=== PATIENT | female | born 1955 | race Caucasian/White ===

== ENCOUNTER 2021-04-17 15:03 | Emergency (ER) | payer MEDICARE, OTHER, SELFPAY ==
--- NOTE | 2021-04-17 | ECG_ITS ---
Test Reason : ABD PAIN HIGH BLOOD Blood Pressure : / mmHG Vent. Rate : 084 BPM Atrial Rate : 084 BPM P-R Int : 146 ms QRS Dur : 080 ms QT Int : 380 ms P-R-T Axes : 059 049 070 degrees QTc Int : 449 ms Sinus rhythm with occasional Premature ventricular complexes Septal infarct , age undetermined Abnormal ECG No previous ECGs available Referred By: Generic ED Physician Electronically Signed By:Yuval Vega
--- NOTE | ~2021-04-17 | XR_ITS ---
EXAMINATION: XR CHEST CLINICAL INFORMATION: Abdominal distention COMPARISON: Chest radiograph 10/27/2012 TECHNIQUE: Frontal view of the chest was obtained. FINDINGS: No significant abnormality is noted involving the heart, lungs, mediastinum, bony thorax or soft tissues. Again seen are bilateral calcified breast prostheses. Stool is present in nondilated colon beneath the diaphragm. Degenerative changes present throughout the spine with scoliosis not significantly changed when compared to 2012. XR/XR chest 1V IMPRESSION: No acute intrathoracic disease
--- NOTE | ~2021-04-17 | CT_ITS ---
EXAMINATION: CT ABDOMEN AND PELVIS WITH CONTRAST CLINICAL INFORMATION: Pain and distention COMPARISON: None TECHNIQUE: Multidetector volumetric images were obtained from the superior aspect of the liver through the pubic symphysis following administration 85 mL of Omnipaque 350 intravenous contrast. Sagittal and coronal reformatted images were obtained on the technologist's workstation. Oral contrast: No This CT examination was performed using dose optimization techniques as appropriate, variously including the following: *Automated exposure control *Adjustment of mA and/or kV according to patient size (this includes techniques or standardized protocols for targeted exams where dose is matched to indication/reason for exam; i.e. extremities or head) *Use of iterative reconstruction technique DLP: 365 mGy-cm FINDINGS: LUNG BASES: Linear densities at both bases consistent scarring or discoid atelectasis. Density calcified breast tissue partially imaged. LIVER, GALLBLADDER, AND BILIARY TREE: The liver is normal in size, shape, and attenuation. No focal hepatic lesion or biliary ductal dilatation is present. The gallbladder is unremarkable with no evidence of radiopaque gallstones, gallbladder wall thickening, or obvious pericholecystic inflammatory changes. PANCREAS: Massively dilated pancreatic duct. The duct at the level the pancreatic neck measures up to 2 cm. No obstructing source noted. No severe pancreatic parenchymal atrophy or inflammatory changes. No stones. SPLEEN: Unremarkable. ADRENAL GLANDS: Unremarkable. KIDNEYS AND URETERS: The kidneys are normal in size, shape, and attenuation. No hydronephrosis, hydroureter, or calculi seen. No perinephric stranding. BLADDER: Unremarkable. GASTROINTESTINAL TRACT: The small and large bowel are unremarkable. The appendix is unremarkable. ABDOMINAL WALL: No significant hernia is appreciated. LYMPH NODES: Normal. VASCULAR: Unremarkable. PELVIC VISCERA: There is a huge pelvic mass which is heterogeneously enhancing and solid measuring up to 17.6 cm longitudinal 16 cm transverse and 17.3 cm AP. When lesions get this large it is difficult to determine exact organ of origin. Uterus appears retroflexed and appearance favors a adnexal likely ovarian mass although a subserosal limb myeloma or leiomyosarcoma can also appear this way. No previous imaging. No changes of carcinomatosis grossly. OSSEOUS STRUCTURES: Unremarkable. CT/CT abdomen pelvis w con IMPRESSION: 1. Large pelvic mass as above. Carcinoma suspected. SPACE AND MISSILE OPERATIONS assessment indicated. If further imaging is desired, recommend pelvic MRI. 2. Massively dilated main pancreatic duct. In this setting, a main duct IPMN is the primary diagnostic consideration. GI assessment indicated.
[2021-04-17 15:11] VITALS: BP 200/103; PULSE 82; RESP 18; TEMP 36.8; O2SAT 96; BMI 20.1
[2021-04-17 18:16] LABS: MANUAL DIFF FLAG NO
[2021-04-17 18:23] LABS: Prothrombin Time 11.7 SEC (10.8-13.0)
[2021-04-17 18:26] LABS: Partial Thromboplastin Time 40.1 SEC (24.1-38.0)
[2021-04-17 18:36] LABS: Basophils Absolute Auto 0.1 X10*3/uL (0.0-0.2); Eosinophils Absolute Auto 0.2 X10*3/uL (0.0-0.4); Eosinophils Percent Auto 2.4 % (0-4); Hematocrit 42.9 % (37-47); Hemoglobin 14.3 g/dl (12.0-16.0); Imm Gran Abs Auto 0.02 X10*3/uL (0.00-0.03); Imm Gran Pct Auto 0.2 % (0.0-0.4); Lymphocytes Absolute Auto 2.4 X10*3/uL (1.2-4.9); Lymphocytes Percent Auto 25.2 % (20-40); Mean Corpuscular HGB Conc 33.3 g/dl (31.0-35.0); Mean Corpuscular Volume 101.9 fL (80-98); Mean Platelet Volume 10.7 fL (9.4-12.3); Monocytes Absolute Auto 0.6 X10*3/uL (0.1-1.2); Monocytes Percent Auto 6.8 % (2-11); Neutrophils Absolute Auto 6.1 X10*3/uL (2.0-8.3); Neutrophils Percent Auto 64.4 % (45-73); Platelet Count 316 X10*3/uL (160-400); Red Blood Count 4.21 X10*6/uL (4.20-5.50); Red Cell Distribution Width 12.1 % (11.0-16.0); White Blood Count 9.5 X10*3/uL (4.8-10.8)
[2021-04-17] MEDS: Dicyclomine HCl 10 MG CAPSULE 20 MG PO (18:36)
[2021-04-17] MEDS: ondansetron HCL 4 MG/2 ML VIAL IVPUSH (18:36)
[2021-04-17 18:37] LABS: Alanine Aminotransferase 17 U/L (0-31); Albumin Level 4.3 g/dL (3.5-5.0); Alkaline Phosphatase 58 U/L (39-117); Anion Gap 15 (12-20); Aspartate Amino Transferase 14 U/L (5-31); Bilirubin Direct 0.2 mg/dL (0.0-0.5); Bilirubin Total 0.3 mg/dL (0.0-1.0); Blood Urea Nitrogen 17 mg/dL (9-16); Calcium 9.4 mg/dL (8.4-10.2); Carbon Dioxide 28 mmol/L (22-29); Chloride 106 mmol/L (96-108); Creatinine Clr Calc Pharmacy 82.3; Estimated Glomerular Filt Rate > 60; Glucose Random 109 mg/dL (60-115); Lipase 37 U/L (8-78); Potassium 5.1 mmol/L (3.3-5.1); Sodium 144 mmol/L (135-145); Total Protein 6.7 g/dL (6.5-8.0)
[2021-04-17 18:39] LABS: Glucose Urine UA NEG (NEG); Leukocyte Esterase Urine NEG (NEG); Nitrite Urine NEG (NEG); PH 5.5 (5.0-8.0); Specific Gravity - Urine >= 1.030 (1.005-1.025); Urine Blood NEG (NEG); Urine Ketones NEG (NEG); Urine Protein NEG (NEG-TRACE)
[2021-04-17 18:41] LABS: Troponin-I High Sensitivity < 3.5 ng/L (<3.5-17.0)
[2021-04-17 18:43] LABS: Appearance Urine CLEAR; Color Urine YELLOW
--- NOTE | 2021-04-17 18:45 | ED.ABDPAIN ---
HPI - Abdominal Pain General Chief Complaint: Abdominal Pain Stated Complaint: Abdominal pain Source: patient Mode of arrival: ambulatory Limitations: no limitations History of Present Illness HPI narrative: 65-year-old female presents with abdominal pain, nausea, vomiting for the past several months, states that she also feels like something is growing in her abdomen. Her abdomen is distended, states that she has been like this for several years. She also has basal cell carcinoma on her right lateral nostril. She does not report any chest pain or pressure, shortness breath, shortness of breath on exertion, dysuria, hematuria, edema, weakness, lightheadedness, or any other concerning symptoms. MD elicited complaint: abdominal pain Pertinent past history: none Onset (ago): month(s) Pain Consistency: constant Location: suprapubic Severity: severe Quality: aching Exacerbating factors: eating, bowel movement, vomiting and movement Relieving factors: nothing Associated symptoms: nausea and vomiting Related Data Previous Rx's Medication Instructions Recorded amlodipine 5 mg PO DAILY #20 tab 04/17/21 lorazepam [Ativan] 1 mg PO TID PRN #20 tab 04/17/21 oxycodone 5 mg PO Q4H PRN #20 tab 04/17/21 Allergies Allergy/AdvReac Type Severity Reaction Status Date / Time statins Allergy Intermediate elevated Verified 04/17/21 15:11 liver enzymes Review of Systems Review of Systems Constitutional: Positive Weight loss, No Fever, No Chills, No Night Sweats, positive Fatigue, No Malaise ENT/Mouth: No Hearing loss, No Ear Pain, No Nasal Congestion, No Sinus Pain, No Hoarseness, No sore throat, No Rhinorrhea, No Swallowing Difficulty Eyes: No Eye Pain, No Swelling, No Redness, No Foreign Body, No Discharge, No Vision Changes Cardiovascular: No Chest Pain, No SOB, No Dyspnea on Exertion, No Orthopnea, No Edema, No Palpitations Respiratory: No Cough, No Sputum, No Wheezing, No Smoke Exposure, No Dyspnea Gastrointestinal: Positive Nausea, Positive Vomiting, no Diarrhea, positive abdominal Pain, No Hematochezia, No Melena Genitourinary: no irregular bleeding, No Dysuria, No Urinary Frequency, No Hematuria, No Urinary Incontinence, No Urgency, No Flank Pain, No Urinary Flow Changes, No Hesitancy Musculoskeletal: No joint pain, No Myalgias, No Joint Swelling Skin: No Skin Lesions, No rash Neuro: No Weakness, No Numbness, No Paresthesias, No Loss of Consciousness, No Dizziness, No Headache Psych: No Anxiety/Panic, No Depression, No SI/HI/AH/VH, No Social Issues Heme/Lymph: No Bruising, No Bleeding,No Lymphadenopathy Endocrine: No Polyuria, No Polydipsia, No Temperature Intolerance Yes all other systems are reviewed and are negative Physical Exam Vital Signs: Vital Signs: Last Vital Signs Temp 98.3 F 04/17/21 15:11 Pulse 82 04/17/21 15:11 Resp 18 04/17/21 15:11 BP 200/103 H 04/17/21 15:11 Pulse Ox 96 04/17/21 15:11 Body Mass Index 20.1 Appearance: Alert. Oriented X3. Mild distress. Head: Normal external exam. Normocephalic. Atraumatic. No Kat signs noted. No raccoon eyes noted Eyes: PERRLA. EOMI. Conjunctiva and sclera normal. Eyelids normal. ENT: TM's Normal. Pharynx normal. Uvula midline. Moist mucous membranes. No trismus noted. No drooling noted. No muffled voice noted. Neck: Normal inspection. Neck supple. No adenopathy. Thyroid Normal. No meningeal signs. No neck mass noted. CVS: Normal heart rate and rhythm. Heart sound normal. No murmurs noted. Pulses equal to all extremities. Respiratory: No respiratory distress. Painless inspiration. Breath sounds normal. No wheezes/rales/rhonchi noted. Chest nontender. No accessory muscle usage noted or decreased air movement noted. Abdomen: Soft and diffusely tender, palpable mass at the suprapubic lower abdomen, Bowel sounds normal in all 4 quadrants. Positive distention noted. No visible injury noted. Back: No CVA tenderness. Full range of motion noted. Skin: Skin warm and dry. Normal skin color. Normal skin turgor. No rashes/lesions/lacerations noted. Extremities: No lower extremity edema. Extremities exhibit normal range of motion. Extremities nontender. Neuro: cranial nerves 2-12 intact, no focal neural deficits, strength 5/5 to all extremities, No motor deficit. No sensory deficit. Course Course Course Narrative: 65-year-old female presents with several months of abdominal pain, nausea, vomiting, and suspected abdominal mass based on physical exam. Will order CT scan of abdomen pelvis with contrast. She has not seen a physician in several years, does have a spot of basal carcinoma on her right nostril. Lab values are unremarkable, CT scan of the abdomen and pelvis indicates large pelvic mass consistent with either ovarian cancer or leiomyoma, also indicates an enlarged pancreatic duct over 2 cm consistent with IPMN. I did discuss this case with both Dr. Fuchs and Dr. Altamirano, both agree that patient needs to be followed up by Oncology. Patient was referred to [facility] as we do not have the surgical team to appropriately treat this patient's pelvic mass. I did prescribe oxycodone, Ativan, and amlodipine for her blood pressure. Findings discussed in detail with patient, patient does understand the gravity of her situation and will follow-up with oncology. Patient verbalized understanding of and agrees to plan of care discharge home. Consultations Consultation #1: Adarsh Consultation #2: Jef MDM - Abdominal Pain Differential Diagnosis Differential diagnosis: Likely abdominal pain, diverticulitis, pancreatitis and small bowel obstruction Differential diagnosis narrative:: Abdominal mass Medical Records Attestation: I reviewed the patient's medical records. Lab Data Attestation: I reviewed the patient's lab results. Result diagrams: 04/17/21 18:10 04/17/21 18:10 Labs: Lab Results 04/17/21 04/17/21 04/17/21 Range/Units 18:10 18:10 18:10 WBC 9.5 (4.8-10.8) X10*3/uL RBC 4.21 (4.20-5.50) X10*6/uL Hgb 14.3 (12.0-16.0) g/dl Hct 42.9 (37-47) % MCV 101.9 H (80-98) fL MCH 34.0 H (27.0-33.0) pg MCHC 33.3 (31.0-35.0) g/dl RDW 12.1 (11.0-16.0) % Plt Count 316 (160-400) X10*3/uL MPV 10.7 (9.4-12.3) fL Immature Gran % (Auto) 0.2 (0.0-0.4) % Neut % (Auto) 64.4 (45-73) % Lymph % (Auto) 25.2 (20-40) % Sampson % (Auto) 6.8 (2-11) % Eos % (Auto) 2.4 (0-4) % Baso % (Auto) 1.0 (0-2) % Lymph # (Auto) 2.4 (1.2-4.9) X10*3/uL Sampson # (Auto) 0.6 (0.1-1.2) X10*3/uL Eos # (Auto) 0.2 (0.0-0.4) X10*3/uL Baso # (Auto) 0.1 (0.0-0.2) X10*3/uL Abs Immat Gran (auto) 0.02 (0.00-0.03) X10*3/uL Absolute Neuts (auto) 6.1 (2.0-8.3) X10*3/uL Absolute Nucleated RBC 0.000 (0.0-0.012) X10*3/uL Nucleated RBC % (auto) 0.0 (0.0-0.2) /100WBC PT 11.7 (10.8-13.0) SEC INR 1.0 (0.9-1.1) APTT 40.1 H (24.1-38.0) SEC Sodium 144 (135-145) mmol/L Potassium 5.1 (3.3-5.1) mmol/L Chloride 106 (96-108) mmol/L Carbon Dioxide 28 (22-29) mmol/L Anion Gap 15 (12-20) BUN 17 H (9-16) mg/dL Creatinine 0.61 (0.5-1.4) mg/dL Estim Creat Clear Calc 82.3 Estimated GFR > 60 Random Glucose 109 (60-115) mg/dL Calcium 9.4 (8.4-10.2) mg/dL Total Bilirubin 0.3 (0.0-1.0) mg/dL Direct Bilirubin 0.2 (0.0-0.5) mg/dL AST 14 (5-31) U/L ALT 17 (0-31) U/L Alkaline Phosphatase 58 (39-117) U/L Troponin I High Sens (<3.5-17.0) ng/L Total Protein 6.7 (6.5-8.0) g/dL Albumin 4.3 (3.5-5.0) g/dL Lipase 37 (8-78) U/L Urine Color Urine Appearance Urine pH (5.0-8.0) Ur Specific Falls (1.005-1.025) Urine Protein (NEG-TRACE) MG/DL Urine Glucose (UA) (NEG) MG/DL Urine Ketones (NEG) MG/DL Urine Blood (NEG) Urine Nitrite (NEG) Ur Leukocyte Esterase (NEG) 04/17/21 04/17/21 Range/Units 18:10 18:31 WBC (4.8-10.8) X10*3/uL RBC (4.20-5.50) X10*6/uL Hgb (12.0-16.0) g/dl Hct (37-47) % MCV (80-98) fL MCH (27.0-33.0) pg MCHC (31.0-35.0) g/dl RDW (11.0-16.0) % Plt Count (160-400) X10*3/uL MPV (9.4-12.3) fL Immature Gran % (Auto) (0.0-0.4) % Neut % (Auto) (45-73) % Lymph % (Auto) (20-40) % Sampson % (Auto) (2-11) % Eos % (Auto) (0-4) % Baso % (Auto) (0-2) % Lymph # (Auto) (1.2-4.9) X10*3/uL Sampson # (Auto) (0.1-1.2) X10*3/uL Eos # (Auto) (0.0-0.4) X10*3/uL Baso # (Auto) (0.0-0.2) X10*3/uL Abs Immat Gran (auto) (0.00-0.03) X10*3/uL Absolute Neuts (auto) (2.0-8.3) X10*3/uL Absolute Nucleated RBC (0.0-0.012) X10*3/uL Nucleated RBC % (auto) (0.0-0.2) /100WBC PT (10.8-13.0) SEC INR (0.9-1.1) APTT (24.1-38.0) SEC Sodium (135-145) mmol/L Potassium (3.3-5.1) mmol/L Chloride (96-108) mmol/L Carbon Dioxide (22-29) mmol/L Anion Gap (12-20) BUN (9-16) mg/dL Creatinine (0.5-1.4) mg/dL Estim Creat Clear Calc Estimated GFR Random Glucose (60-115) mg/dL Calcium (8.4-10.2) mg/dL Total Bilirubin (0.0-1.0) mg/dL Direct Bilirubin (0.0-0.5) mg/dL AST (5-31) U/L ALT (0-31) U/L Alkaline Phosphatase (39-117) U/L Troponin I High Sens < 3.5 (<3.5-17.0) ng/L Total Protein (6.5-8.0) g/dL Albumin (3.5-5.0) g/dL Lipase (8-78) U/L Urine Color YELLOW Urine Appearance CLEAR Urine pH 5.5 (5.0-8.0) Ur Specific Falls >= 1.030 H (1.005-1.025) Urine Protein NEG (NEG-TRACE) MG/DL Urine Glucose (UA) NEG (NEG) MG/DL Urine Ketones NEG (NEG) MG/DL Urine Blood NEG (NEG) Urine Nitrite NEG (NEG) Ur Leukocyte Esterase NEG (NEG) Imaging Data CT abdomen pelvis: Attestation: I personally reviewed and interpreted this imaging study as follows: Radiologist's impression: FINDINGS: LUNG BASES: Linear densities at both bases consistent scarring or discoid atelectasis. Density calcified breast tissue partially imaged. LIVER, GALLBLADDER, AND BILIARY TREE: The liver is normal in size, shape, and attenuation. No focal hepatic lesion or biliary ductal dilatation is present. The gallbladder is unremarkable with no evidence of radiopaque gallstones, gallbladder wall thickening, or obvious pericholecystic inflammatory changes. PANCREAS: Massively dilated pancreatic duct. The duct at the level the pancreatic neck measures up to 2 cm. No obstructing source noted. No severe pancreatic parenchymal atrophy or inflammatory changes. No stones. SPLEEN: Unremarkable. ADRENAL GLANDS: Unremarkable. KIDNEYS AND URETERS: The kidneys are normal in size, shape, and attenuation. No hydronephrosis, hydroureter, or calculi seen. No perinephric stranding. BLADDER: Unremarkable. GASTROINTESTINAL TRACT: The small and large bowel are unremarkable. The appendix is unremarkable. ABDOMINAL WALL: No significant hernia is appreciated. LYMPH NODES: Normal. VASCULAR: Unremarkable. PELVIC VISCERA: There is a huge pelvic mass which is heterogeneously enhancing and solid measuring up to 17.6 cm longitudinal 16 cm transverse and 17.3 cm AP. When lesions get this large it is difficult to determine exact organ of origin. Uterus appears retroflexed and appearance favors a adnexal likely ovarian mass although a subserosal limb myeloma or leiomyosarcoma can also appear this way. No previous imaging. No changes of carcinomatosis grossly. OSSEOUS STRUCTURES: Unremarkable. CT/CT abdomen pelvis w con IMPRESSION: 1. Large pelvic mass as above. Carcinoma suspected. 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 If further imaging is desired, recommend pelvic MRI. 2. Massively dilated main pancreatic duct. In this setting, a main duct IPMN is the primary diagnostic consideration. GI assessment indicated. Chest x-ray: Attestation: I personally reviewed and interpreted this imaging study as follows: Radiologist's impression: EXAMINATION: XR CHEST CLINICAL INFORMATION: Abdominal distention COMPARISON: Chest radiograph 10/27/2012 TECHNIQUE: Frontal view of the chest was obtained. FINDINGS: No significant abnormality is noted involving the heart, lungs, mediastinum, bony thorax or soft tissues. Again seen are bilateral calcified breast prostheses. Stool is present in nondilated colon beneath the diaphragm. Degenerative changes present throughout the spine with scoliosis not significantly changed when compared to 2013. XR/XR chest 1V IMPRESSION: No acute intrathoracic diseas ECG Data Attestation: I personally reviewed and interpreted this ECG as follows: ECG interpretation date: 04/17/21 ECG interpretation time: 15:35 Interpretation: Vent. rate 84 BPM ID interval 146 ms QRS duration 80 ms QT/QTc 380/449 ms P-R-T axes 59 49 70 Sinus rhythm with occasional Premature ventricular complexes Septal infarct , age undetermined Abnormal ECG No previous ECGs available Discharge Plan Discharge Clinical Impression: Pelvic mass, Dilated pancreatic duct Patient Disposition: Home, Self-Care Instructions: Ovarian Cancer (DC) Additional Instructions: You were evaluated for abdominal pain. CT scan shows a large pelvic mass consistent with ovarian cancer. CT scan also indicates abnormality with the pancreatic duct, consistent with possible metastatic cancer. Please follow-up with [facility]. I have prescribed oxycodone which is a narcotic. This medication has high risk for addiction and abuse. Do not drive or operate machinery while taking medication. This medication is constipating, please use MiraLax and her Colace to help soften stools. I prescribed Ativan for anxiety. Please take this medication as directed. This medication is a benzo diazepam. I prescribed amlodipine for elevated blood pressure. Please take this medication daily. Please call [facility] at . Thank you for choosing this emergency department for evaluation. Please follow-up with primary care physician as needed. Return to the emergency department for any new, concerning, or worsening symptoms. Prescriptions: New oxycodone 5 mg tablet 5 mg PO Q4H PRN (Reason: pain) Qty: 20 RF: 0 lorazepam [Ativan] 1 mg tablet 1 mg PO TID PRN (Reason: anxiety) Qty: 20 RF: 0 amlodipine 5 mg tablet 5 mg PO DAILY Qty: 20 RF: 0 Referrals: Prashant Altamirano [Physician] - 2 days (Enlarged pancreatic duct) Duarte Fuchs MD [Physician] - 2 days (Pelvic mass) Discharge Date/Time: 04/17/21 20:42 [facility] Past Medical History Attestation statement: The following information was validated with the patient. Source: old records reviewed Medical History Cervical disc herniation Depression Social History Social History Advance Directives: Yes Advance Directives Information Provided: Yes Advance Directives on File: No
[2021-04-17] MEDS: oxyCODONE HCl Immed Release 5 MG TABLET PO (20:37)
[2021-04-17] MEDS: LORazepam 1 MG TABLET PO (20:37)
[2021-04-17 20:40] VITALS: BP 171/82; PULSE 67; RESP 16; TEMP 36.9; O2SAT 97
== END 2021-04-17 20:42 | disposition home or self-care (01) ==
PROVIDERS: Nurse Practitioner Family; Emergency Provider Internal Medicine
DX: R19.09 Other intra-abdominal and pelvic swelling, mass and lump (principal); K86.89 Other specified diseases of pancreas
CPT/HCPCS: 36415; 71045; 74177; 80048; 80076; 81003; 83690; 84484; 85025; 85610; 85730; 93005; 96374; 99284; J2405

== ENCOUNTER 2021-06-10 12:57 | Emergency (ER) | payer MEDICARE, SELFPAY ==
--- NOTE | ~2021-06-10 | XR_ITS ---
EXAMINATION: XR ELBOW, LEFT CLINICAL INFORMATION: Rule out foreign body COMPARISON: None TECHNIQUE: AP, lateral, and oblique views of the left elbow. FINDINGS: Very small density involving soft tissue of the proximal forearm lung radial aspect. This may be dystrophic calcification or possibly phlebolith versus rounded foreign body. Measures 2 mm. There is no fracture or dislocation of the elbow. There is some evidence of degenerative change. XR/XR elbow LT 2V IMPRESSION: Small foreign body within the soft tissue proximal forearm along the radial aspect as described. This could be dystrophic calcification or phlebolith versus a small foreign body.
--- NOTE | ~2021-06-10 | US_ITS ---
EXAMINATION: US VENOUS WITH DOPPLER UPPER EXTREMITY, LEFT CLINICAL INFORMATION: Left upper extremity pain post IV contrast COMPARISON: None TECHNIQUE: Ultrasound of the upper extremity is performed using compression sonography and color and pulse Doppler flow with assessment of augmentation of flow. There is also imaging and Doppler assessment of the jugular and subclavian veins. Spectral analysis with color-flow imaging is performed. FINDINGS: Thrombus is present in the superficial basilic vein at the level of the elbow corresponding to the palpable cord on physical exam. No DVT is present. Respiratory variation, normal compression, and augmented flow are noted throughout the deep venous system of the upper extremity including the axillary, brachial, cubital, and radial and ulnar veins. There is normal flow in the internal jugular and subclavian veins. If the patient's symptoms progress, a followup ultrasound in 5 -7 days might be of value to exclude proximal propagation from a nonvisualized distal arm vein. US/US venous duplex UE LT IMPRESSION: No DVT demonstrated in the left upper extremity deep venous system. Superficial thrombophlebitis noted in the left basilic vein at the elbow
[2021-06-10 13:39] VITALS: BP 155/74; PULSE 80; RESP 18; TEMP 36.7; O2SAT 97; BMI 17.5
--- NOTE | 2021-06-10 19:24 | ED.GENADULT ---
HPI - General Adult General Chief complaint: General Medical Stated complaint: arm swelling Time Seen by Provider: 06/10/21 15:48 History of Present Illness HPI narrative: Patient complains of swollen vein in left antecubital where she had an IV last week and is concerned about the pain and the swelling, the IV was placed when she was hospitalized for a surgery and she is concerned a piece of the IV may have broken off and be stuck under her skin or in her vein, no fever no chills no joint pains no difficulty breathing no chest pain Related Data Previous Rx's Medication Instructions Recorded amlodipine 5 mg tablet 5 mg PO DAILY #20 tab 04/17/21 lorazepam 1 mg tablet (Ativan) 1 mg PO TID PRN #20 tab 04/17/21 oxycodone 5 mg tablet 5 mg PO Q4H PRN #20 tab 04/17/21 Allergies Allergy/AdvReac Type Severity Reaction Status Date / Time statins Allergy Intermediate elevated Verified 06/10/21 13:39 liver enzymes Review of Systems Review of Systems: Positive for left antecubital vein swelling and tenderness Negatives are no fever no chills no dizziness no weakness no headache no neck pain no chest pain or shortness of breath no palpitations no leg swelling no joint pains Yes all other systems are reviewed and are negative PMFSH Past Medical History Source: nursing notes reviewed Medical History (Updated 06/11/21 @ 00:03 by Ramón Ray) Cervical disc herniation Depression H/O pelvic mass Pelvic mass in female Surgical History (Updated 06/10/21 @ 13:41 by Trice Koenig RN) History of hysterectomy Social History Social History Advance Directives: No Advance Directives Information Provided: Yes Physical Exam Vital Signs: Vital Signs: Last Vital Signs Temp 98.1 F 06/10/21 13:39 Pulse 80 06/10/21 13:39 Resp 18 06/10/21 13:39 BP 155/74 H 06/10/21 13:39 Pulse Ox 97 06/10/21 13:39 Body Mass Index 17.5 General appearance is no acute distress Head is normocephalic atraumatic Neck is supple Respiratory no distress Extremities the left antecubital area has a swollen vein that is palpable for 2 or 3 cm, it is not red or warm but is tender, there is full range of motion in the elbow, the skin is intact there is no wound there is no other swelling in the upper arm or anywhere else in the arm, full range of motion shoulder elbow wrist and hand, neurovascular intact, no redness or warmth no rash Other extremities normal Course Course Course Narrative: Ultrasound of the upper extremity to rule out DVT was negative for DVT, it did show some superficial clot, there was no foreign body visualized in the vein or in the soft tissue near the vein X-ray did show a possible foreign body in the area but it was unclear if was in soft tissue or in the vein so ultrasound was done and no foreign body was visualized in the vein Well-appearing patient without any evidence of active infection is discharged with symptomatic treatment for superficial thrombophlebitis Discharge Plan Discharge Clinical Impression: Superficial phlebitis of arm Patient Disposition: Home, Self-Care Additional Instructions: There is no sign of infection in the left upper arm The ultrasound did not visualize a foreign body in the vein The ultrasound did not see any deep vein thrombosis It is not currently recommended to treat this with blood thinners, but in some cases a specialist might make a different decision so 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
== END 2021-06-10 19:38 | disposition home or self-care (01) ==
PROVIDERS: Emergency Provider Emergency Medicine
DX: I80.9 Phlebitis and thrombophlebitis of unspecified site (principal); M79.602 Pain in left arm; Z79.899 Other long term (current) drug therapy; R60.0 Localized edema
CPT/HCPCS: 73070; 93971; 99283; 99284

== ENCOUNTER 2022-02-04 08:06 | Outpatient (REF) | payer MEDICARE, SELFPAY ==
[2022-02-04 08:33] LABS: MANUAL DIFF FLAG NO
[2022-02-04 08:53] LABS: Basophils Absolute Auto 0.1 X10*3/uL (0.0-0.2); Basophils Percent Auto 0.9 % (0-2); Eosinophils Absolute Auto 0.2 X10*3/uL (0.0-0.4); Eosinophils Percent Auto 3.3 % (0-4); Hemoglobin 15.1 g/dl (12.0-16.0); Imm Gran Abs Auto 0.01 X10*3/uL (0.00-0.03); Imm Gran Pct Auto 0.1 % (0.0-0.4); Lymphocytes Absolute Auto 1.7 X10*3/uL (1.2-4.9); Lymphocytes Percent Auto 25.6 % (20-40); Mean Corpuscular HGB Conc 32.8 g/dl (31.0-35.0); Mean Corpuscular Hemoglobin 33.6 pg (27.0-33.0); Mean Corpuscular Volume 102.2 fL (80.0-98.0); Mean Platelet Volume 11.3 fL (9.4-12.3); Monocytes Absolute Auto 0.5 X10*3/uL (0.1-1.2); Neutrophils Absolute Auto 4.3 x10*3/uL (2.0-8.3); Neutrophils Percent Auto 63.1 % (45-73); Platelet Count 249 X10*3/uL (160-400); Red Cell Distribution Width 12.5 % (11.0-16.0); White Blood Count 6.7 X10*3/uL (4.8-10.8)
[2022-02-04 09:01] LABS: Estimated Average Glucose 100 mg/dL; Hemoglobin A1c % 5.1 %
[2022-02-04 09:17] LABS: Alanine Aminotransferase 19 U/L (0-31); Albumin Level 4.4 g/dL (3.5-5.0); Alkaline Phosphatase 48 U/L (39-117); Anion Gap 16 (12-20); Aspartate Amino Transferase 15 U/L (5-31); Bilirubin Total 0.5 mg/dL (0.0-1.0); Blood Urea Nitrogen 20 mg/dL (9-16); Calcium 9.7 mg/dL (8.4-10.2); Carbon Dioxide 23 mmol/L (22-29); Chloride 106 mmol/L (96-108); Cholesterol 171 mg/dL; Estimated Glomerular Filt Rate > 60; Glucose Fasting 104 mg/dL (60-99); HDL Cholesterol 60 mg/dL; LDL Cholesterol Calculated 95 mg/dl; Sodium 140 mmol/L (135-145); Total Protein 6.7 g/dL (6.5-8.0); Triglycerides 81 mg/dL
[2022-02-04 09:38] LABS: TSH reflex Free T4 0.59 uIU/mL (0.32-4.0)
[2022-02-04 09:56] LABS: Folate > 20.0 ng/mL (> or = 4.0); Vitamin B12 1358 pg/mL (200-900)
[2022-02-06 06:26] LABS: CA 125 New Method 4 U/mL (<35); CA-125 4 U/mL (<35)
[2022-02-08 10:12] LABS: Carbohydrate Antigen 19-9 <3 U/mL (<34)
[2022-02-09 13:46] LABS: Vitamin D 25-OH, D2 <4 ng/mL; Vitamin D 25-OH, D3 44 ng/mL; Vitamin D 25-OH, Total 44 ng/mL (30-100)
== END 2022-02-04 08:07 | disposition home or self-care (01) ==
LOC: HO.LAB 08:06
PROVIDERS: PCP Nurse Practitioner Acute Care; Visit Provider Nurse Practitioner Acute Care
DX: C25.9 Malignant neoplasm of pancreas, unspecified (principal); R53.83 Other fatigue
CPT/HCPCS: 36415; 80053; 80061; 82306; 82378; 82607; 82746; 83036; 84443; 85025; 86301; 86304

== ENCOUNTER 2022-08-03 09:48 | Outpatient (REF) | payer MEDICARE, OTHER, SELFPAY ==
--- NOTE | ~2022-08-03 | CT_ITS ---
EXAMINATION: CT HEAD WITHOUT CONTRAST CLINICAL INFORMATION: Nontraumatic subdural hemorrhage COMPARISON: None TECHNIQUE: Contiguous axial imaging was performed from the skull base to vertex without intravenous administration of contrast. This CT examination was performed using dose optimization techniques as appropriate, variously including the following: *Automated exposure control *Adjustment of mA and/or kV according to patient size (this includes techniques or standardized protocols for targeted exams where dose is matched to indication/reason for exam; i.e. extremities or head) *Use of iterative reconstruction technique DLP: 820 mGy-cm FINDINGS: There is no evidence of an extra-axial collection. There is no evidence of intra-axial or extra-axial hemorrhage. The ventricles and extra-axial CSF spaces are appropriate. Johansen-white matter differentiation is normal. No mass, mass effect or infarct is seen. There are inflammatory changes in the left maxillary sinus. Visualized paranasal sinuses, mastoid air cells and middle ears are otherwise clear. Degenerative changes at the right temporomandibular joint. No skull fracture. CT/CT head/brain wo IV con IMPRESSION: No evidence of subdural hemorrhage.
== END 2022-08-03 09:49 | disposition home or self-care (01) ==
LOC: HO.CT 09:48
PROVIDERS: PCP Internal Medicine; Visit Provider Psychiatry & Neurology Neurology
DX: S09.90XA Unspecified injury of head, initial encounter (principal); I62.00 Nontraumatic subdural hemorrhage, unspecified
CPT/HCPCS: 70450

== ENCOUNTER 2022-08-06 11:51 | Outpatient (REF) | payer MEDICARE, OTHER, SELFPAY ==
--- NOTE | ~2022-08-06 | MR_ITS ---
EXAMINATION: MR CERVICAL SPINE WITHOUT CONTRAST CLINICAL INFORMATION: 66-year-old with self-reported neck and bilateral shoulder pain and headaches. Cervical disc displacement. COMPARISON: 11/14/2012 MRI TECHNIQUE: MRI of the cervical spine was obtained using routine sequences without contrast. FINDINGS: Alignment: There is 2 mm of anterolisthesis at C3-C4 since the previous exam. There is 2 mm of retrolisthesis at C4-C5, stable in appearance. Otherwise normal alignment unchanged in appearance. Craniocervical Junction/C1-C2 Articulations: Intact and aligned. Visualized Intracranial Structures: Within normal limits. Vertebral Bodies: Normal height. Disc Spaces and Endplates: Severe disc space height loss at C4-C5 with Schmorl's nodes, disc desiccation and spondylosis similar to the previous exam. Mild disc space height loss at C3-C4, stable in appearance. Sjykxigg-ik-fpwhrb disc space height loss at C5-C6 and C6-C7 with disc desiccation, tiny Schmorl's nodes and mild degrees of spondylosis, stable in appearance. Bone Marrow: Minor type I degenerative marrow signal changes seen along the endplates at C4-C5, C5-C6 and C6-C7 with associated type II degenerative marrow signal changes. Type II marrow signal change seen most prominently at C4-C5, stable in appearance. No suspicious marrow replacing process or other bone marrow edema. C2-C3: Mild posterior disc osteophyte complex asymmetric to the right, stable in appearance with slight flattening of the dural sac on the right, unchanged, without cord impingement or canal stenosis. There is uncovertebral and facet arthrosis bilaterally, with progression of facet arthrosis on the left. There is moderate right and mild left-sided neural foraminal stenosis, progressed on the left and stable on the right. C3-C4: Broad-based central disc protrusion similar to previous study with mild flattening of the central dural sac with trace anterolisthesis at this level on the current exam without cord impingement or canal stenosis. There is uncovertebral spurring, left more than right, with mild right and severe left-sided facet arthrosis, progressed on the left. There is ckduieey-ya-xplrbm left-sided and mild right-sided neural foraminal stenosis, largely unchanged. C4-C5: Mild retrolisthesis, with broad-based posterior disc osteophyte complex and a superimposed central disc herniation similar to the previous exam, with ebbw-dh-uglxmdbw ventral cord impingement centrally with AP cord caliber of 5 mm, stable in appearance. There is associated moderate central spinal canal stenosis, stable in appearance. There is uncovertebral spurring and facet arthrosis bilaterally similar to the previous exam, with mnhffrdi-ru-astxwf left-sided and jlql-gu-qfniyjqt right-sided neural foraminal stenosis, stable in appearance. C5-C6: Broad-based disc osteophyte complex noted asymmetric to the right, similar to the previous exam, with effacement of the dural sac on the right without cord compression, stable in appearance. Mild central canal stenosis is stable. Bilateral uncovertebral spurring and facet arthropathy is similar to the previous exam with dulwsgql-ns-lqunwx bilateral neural foraminal stenosis, stable in appearance. There is probable encroachment on the ventral root of C6 on the right, unchanged. C6-C7: Broad-based disc osteophyte complex with mild flattening of the ventral dural sac, stable in appearance, without cord impingement or canal stenosis. Bilateral uncovertebral spurring is again noted with mild right and moderate left-sided neural foraminal stenosis, stable in appearance. C7-T1: Small central to right paramedian disc osteophyte complex, stable in appearance, without significant facet arthrosis, canal or neuroforaminal stenosis. T1-T2: No disc herniation or canal stenosis. No significant DJD or neuroforaminal stenosis. Small perineural cysts noted bilaterally, stable in appearance. Spinal Cord: The cervical and visualized upper thoracic spinal cord is normal in signal intensity throughout, without focal lesion, edema or syrinx. Probable chronic spinal cord volume loss at C4-C5, unchanged. Extracranial Soft Tissues: 1.8 cm left thyroid lobe nodule is noted. Recommend follow-up thyroid ultrasound otherwise the visualized extraspinal soft tissues are grossly unremarkable in appearance. MR/MR cervical spine wo con IMPRESSION: 1. Mild anterolisthesis at C3-C4 since the previous exam and mild retrolisthesis at C4-C5 stable in appearance. 2. Multilevel DDD and spondylosis largely stable in appearance with multilevel disc osteophyte complexes and disc herniations as described above largely similar in appearance to the previous exam with moderate central spinal canal stenosis at C4-C5 and mild central canal stenosis at C5-C6 stable in appearance. Lewa-vd-crfhexsn ventral cord impingement at C4-C5 is stable with probable chronic spinal cord volume loss at this level unchanged. 3. Multilevel DJD as described above with progression of facet arthrosis on the left at C3-C4. Multilevel bilateral neural foraminal stenosis is largely stable in appearance as detailed by level above. 4. 1.8 cm left thyroid lobe nodule. Recommend follow-up thyroid ultrasound.
== END 2022-08-06 11:52 | disposition home or self-care (01) ==
LOC: HO.MRI 11:51
PROVIDERS: PCP Internal Medicine; Visit Provider Psychiatry & Neurology Neurology
DX: M50.20 Other cervical disc displacement, unspecified cervical region (principal)
CPT/HCPCS: 72141

== ENCOUNTER 2022-10-06 14:12 | Outpatient (REF) | payer MEDICARE, OTHER, SELFPAY ==
--- NOTE | ~2022-10-06 | US_ITS ---
EXAMINATION: US THYROID CLINICAL INFORMATION: Thyroid nodule. COMPARISON: None TECHNIQUE: Linear transducer grayscale and color Doppler examination with attention to the region of the thyroid. FINDINGS: SIZE: Measurements of the thyroid lobes and nodules are given in sagittal, anteroposterior and transverse dimensions respectively. Right Thyroid Lobe: 5.6 x 1.6 x 1.4 cm, volume 6.5 mL. Parenchyma: The gland echotexture is homogeneous. Thyroid vascularity is increased. Left Thyroid Lobe: 5.2 x 1.7 x 2.1 cm, volume 9.5 mL. Parenchyma: The gland echotexture is heterogeneous. Thyroid vascularity is increased. Isthmus: 0.2 cm in maximum AP dimension. Estimated total number of nodules greater than or equal to 1 cm: 3. Batch Room Technician nodules are described as follows: 1. Location: Right superior. Size: 1.9 x 0.8 x 1.3 cm, volume 1.0 mL. Nodule characteristics: Composition: Solid (2). Echogenicity: Isoechoic (1). Shape: Not taller than wide (0). Margins: Smooth (0). Echogenic Foci: Comet-tail artifacts (0). ACR TI-RADS total points: 3 ACR TI-RADS category: 3 2. Location: Right medial/mid. Size: 0.5 x 0.4 x 0.7 cm, volume 0.1 mL. Nodule characteristics: Composition: Solid (2). Echogenicity: Hypoechoic (2). Shape: Not taller than wide (0). Margins: Smooth (0). Echogenic Foci: Peripheral calcifications (2). ACR TI-RADS total points: 6 ACR TI-RADS category: 4 3. Location: Right inferior. Size: 0.8 x 0.5 x 0.6 cm, volume 0.1 mL. Nodule characteristics: Composition: Solid (2). Echogenicity: Isoechoic (1). Shape: Not taller than wide (0). Margins: Smooth (0). Echogenic Foci: Comet-tail artifacts (0). ACR TI-RADS total points: 3 ACR TI-RADS category: 3 4. Location: Left superior/mid. Size: 2.3 x 1.5 x 2.0 cm, volume 3.5 mL. Nodule characteristics: Composition: Solid/almost completely solid (2). Echogenicity: Isoechoic (1). Shape: Not taller than wide (0). Margins: Smooth (0). Echogenic Foci: None (0). ACR TI-RADS total points: 3 ACR TI-RADS category: 3 5. Location: Left inferior. Size: 2.4 x 1.2 x 1.2 cm, volume 1.8 mL. Nodule characteristics: Composition: Solid/almost completely solid (2). Echogenicity: Isoechoic (1). Shape: Not taller than wide (0). Margins: Ill-defined (0). Echogenic Foci: Punctate echogenic foci (3). ACR TI-RADS total points: 6 ACR TI-RADS category: 4 NODES: No lymphadenopathy is seen in the tissue surrounding the thyroid gland. US/US thyroid IMPRESSION: Bilateral thyroid nodules. Fine needle aspiration of the nodule in the inferior left lobe and continued ultrasound follow-up recommended. ACR TI-RADS RECOMMENDATION REFERENCE: Ultrasound-guided fine-needle aspiration, followup ultrasound, no further follow up. * TR1 (0 point) and TR 2 (2 points): No FNA or follow up. * TR3 (3 points): FNA if more than or equal to 2.5 cm in maximum dimension, followup ultrasound in 1, 3 and 5 years if 1.5 to 2.4 cm in maximum dimension. * TR4 (4-6 points): FNA if more than or equal to 1.5 cm in maximum dimension, followup ultrasound in 1, 2, 3 and 5 years if 1 to 1.4 cm in maximum dimension. * TR5 (more than or equal to 7 points): FNA if more than or equal to 1 cm in maximum dimension, followup ultrasound every year for 5 years if 0.5 to 0.9 cm in maximum dimension. * TR3, TR4 or TR5 nodules that are below the size threshold for followup receive no follow up.
== END 2022-10-06 14:13 | disposition home or self-care (01) ==
LOC: HO.US 14:12
PROVIDERS: Visit Provider Psychiatry & Neurology Neurology
DX: E04.1 Nontoxic single thyroid nodule (principal)
CPT/HCPCS: 76536

== ENCOUNTER 2023-08-25 08:35 | Outpatient (AMB) | payer MEDICARE, OTHER, SELFPAY ==
--- NOTE | 2023-08-25 08:38 | MHC.PC.OV ---
Vital Signs 08/25/23 08:40 Height 5 ft 5 in Intake Visit Reasons: Med review Intake Note: Patient is here to follow up on med review. Couples Therapist Required: No Commanding Officer Garage: Not Required per policy Accompanied by: Self / Same As Patient Allergies Pzeocti-QTF-QlS Reductase Inhibitor Allergy (Intermediate, Verified 08/25/23 08:40) elevated liver enzymes Tobacco use date assessed: 08/25/23 Fall risk assessment: No Falls in past year Last assessed Fall Risk: 08/25/23 Dental Screening Dental Screen Date: 08/25/23 Did you have a dental visit in the last 12 months?: Yes Did you have a dental problem in the last 6 months where you did not have access to dental care?: No Was dental information given to patient?: Patient has dentist [facility] Medical History (Updated 06/16/22 @ 10:00 by Lucas Felton MD) Benzodiazepine dependence Pelvic mass in female H/O pelvic mass Depression Cervical disc herniation Surgical History History of surgery History of pelvic surgery History of hysterectomy Social History Housing: House Alcohol intake: current Alcohol intake frequency: former alcohol drinker Patient Tobacco Use Status: Former Tobacco user Cigarette Packs Per Day: 1 e-Cigarette/Vaping Use: Never Used Second Hand Smoke Exposure: Yes service: No Current occupational status: retired Cognitive needs: No Hearing needs: No Vision needs: Yes Questionnaire PHQ-9 Over the last 2 weeks, how often have you been bothered by any of the following problems? 1. Little interest or pleasure in doing things: not at all 2. Feeling down, depressed, or hopeless: not at all 3. Trouble falling or staying asleep, or sleeping too much: not at all 4. Feeling tired or having little energy: not at all 5. Poor appetite or overeating: not at all 6. Feeling bad about yourself - or that you are a failure or have let yourself or your family down: not at all 7. Trouble concentrating on things, such as reading the newspaper or watching television: not at all 8. Moving or speaking so slowly that other people could have noticed. Or the opposite - being so fidgety or restless that you have been moving around a lot more than usual: not at all 9. Thoughts that you would be better off or of hurting yourself in some way: not at all Total score: 0 Depression Screening Interpretation: Negative Depression Screening Done: Yes Source: Developed by Drs. Anmol Nuno, Katie Baez, Jose Garay and colleagues, with an educational susana from [email or web address]. Thrive Questionnaire Date Thrive assessed: 08/25/23 I am a: Patient What is your living situation today?: I have a steady place to live Within the past 12 months, did the food you bought not last and you didn't have the money to get more?: Never true Within the past 12 months, did you worry whether your food would run out before you got money to buy more?: Never true Do you have trouble paying for medicines?: No Do you have trouble getting transportation to medical appointments?: No Do you have trouble paying your heating and electricity bill?: No Do you have trouble taking care of your child, family member or friend?: No Do you have trouble with day-to-day activities such as bathing, preparing meals, shopping, managing finances, etc.?: No Are you currently unemployed and looking for a job?: No Are you interested in more education?: No Currently or been in a relationship where the following occur: no concerns reported AUDIT C Alcohol Use Questionnaire (AUDIT-C) 1. How often do you have a drink containing alcohol?: Never Total Score: 0 JAMEEL-7 AMB Questionnaire JAMEEL-7 Date JAMEEL - 7 assessed: 08/25/23 Feeling nervous, anxious, or on edge: 0 = Not at all Not being able to stop or control worryin = Not at all Worrying too much about different things: 0 = Not at all Trouble relaxin = Not at all Being so restless that it is hard to sit still: 0 = Not at all Becoming easily annoyed or irritable: 0 = Not at all Feeling afraid as if something awful might happen: 0 = Not at all Total JAMEEL-7 score (0-4 normal; 5-9 mild; 10-14 moderate; 15-21 severe): 0 Source: Developed by Katie Lange Kurt Kroenke and colleagues, with an educational susana from [email or web address]. Physical exam (Primary Care) Tobacco/Smoking Status: Tobacco use Status Tobacco use date assessed 02/03/22 06/16/22 09:35 Patient Tobacco Use Status Former Tobacco user 06/16/22 09:35 e-Cigarette/Vaping Use Never Used 06/16/22 09:35 Depression Screening Interpretation: Negative Thrive Assessment: Date of Thrive Assessment Date Thrive assessed 02/03/22 06/16/22 09:35 Currently or been in a relationship where the following occur: no concerns reported Coding
[2023-08-25 08:40] VITALS: BP 148/78; PULSE 107; O2SAT 98; BMI 19.7
--- NOTE | 2023-08-25 08:49 | A.OFFPC_ITS ---
Vital Signs 08/25/23 08:40 08/25/23 08:57 Height 5 ft 5 in Weight 118 lb 2 oz BMI 19.7 BP 148/78 H 140/72 H Blood Pressure Location Lt brachial Lt brachial Position Sitting Sitting Pulse 107 H Pulse Source Pulse Oximeter Pulse Oximetry (%) 98 Oxygen Delivery Method Room Air Intake Visit Reasons: Med review Intake Note: Patient is here to follow up on med review. Requesting for lab order Dry Chain Worker Required: No Leather Toggler: Not Required per policy Accompanied by: Self / Same As Patient Allergies Jgoandk-JDQ-CpF Reductase Inhibitor Allergy (Intermediate, Verified 08/28/23 12:02) elevated liver enzymes Medication List - Last Reconciled 08/28/23 by Lucas Felton MD lorazepam 1 mg PO DAILY PRN trazodone 50 mg PO BEDTIME PRN Tobacco use date assessed: 08/25/23 Fall risk assessment: No Falls in past year Last assessed Fall Risk: 08/25/23 Dental Screening Dental Screen Date: 08/25/23 Did you have a dental visit in the last 12 months?: No Did you have a dental problem in the last 6 months where you did not have access to dental care?: No Was dental information given to patient?: Patient has dentist HPI Med review HPI Details 68-year-old female presents to the offic e to discuss her chronic medical conditions. Patient has been diagnosed with basal cell carcinoma on the nose. Surgery has been offered with a replacement cartilage from the ear to fill in. Patient has declined the procedure. Patient has multiple nodules in the thyroid and is scheduled for an appointment with the marketing segment manager in September. She has agreed to get blood work done. She has not had blood work done in the past. Patient has declined mammogram and colonoscopy. She is not interested in the Cologuard either. Patient is requesting a prescription of trazodone. [facility] Medical History Benzodiazepine dependence Pelvic mass in female H/O pelvic mass Depression Cervical disc herniation Surgical History History of surgery History of pelvic surgery History of hysterectomy Social History Housing: House Alcohol intake: current Alcohol intake frequency: holidays/special occasions only Patient Tobacco Use Status: Current everyday Tobacco user Cigarette Packs Per Day: 1 Cigarettes Per Day: 20 e-Cigarette/Vaping Use: Never Used Second Hand Smoke Exposure: Yes service: No Current occupational status: retired Cognitive needs: No Hearing needs: No Vision needs: Yes Questionnaire PHQ-9 Over the last 2 weeks, how often have you been bothered by any of the following problems? 1. Little interest or pleasure in doing things: nearly every day 2. Feeling down, depressed, or hopeless: nearly every day 3. Trouble falling or staying asleep, or sleeping too much: nearly every day 4. Feeling tired or having little energy: nearly every day 5. Poor appetite or overeating: nearly every day 6. Feeling bad about yourself - or that you are a failure or have let yourself or your family down: not at all 7. Trouble concentrating on things, such as reading the newspaper or watching television: nearly every day 8. Moving or speaking so slowly that other people could have noticed. Or the opposite - being so fidgety or restless that you have been moving around a lot more than usual: not at all 9. Thoughts that you would be better off or of hurting yourself in some way: not at all Total score: 18 Source: Developed by Drs. Anmol Nuno, Katie Baez, Jose Garay and colleagues, with an educational susana from [employer]. Thrive Questionnaire Date Thrive assessed: 08/25/23 I am a: Patient What is your living situation today?: I have a steady place to live Within the past 12 months, did the food you bought not last and you didn't have the money to get more?: Never true Within the past 12 months, did you worry whether your food would run out before you got money to buy more?: Never true Do you have trouble paying for medicines?: No Do you have trouble getting transportation to medical appointments?: No Do you have trouble paying your heating and electricity bill?: No Do you have trouble taking care of your child, family member or friend?: No Do you have trouble with day-to-day activities such as bathing, preparing meals, shopping, managing finances, etc.?: Yes Are you currently unemployed and looking for a job?: No Are you interested in more education?: No Currently or been in a relationship where the following occur: no concerns reported AUDIT C Alcohol Use Questionnaire (AUDIT-C) 1. How often do you have a drink containing alcohol?: Monthly or less Total Score: 1 JAMEEL-7 AMB Questionnaire JAMEEL-7 Date JAMEEL - 7 assessed: 08/25/23 Feeling nervous, anxious, or on edge: 3 = Nearly every day Not being able to stop or control worryin = Not at all Worrying too much about different things: 0 = Not at all Trouble relaxin = Not at all Being so restless that it is hard to sit still: 0 = Not at all Becoming easily annoyed or irritable: 3 = Nearly every day Feeling afraid as if something awful might happen: 0 = Not at all Total JAMEEL-7 score (0-4 normal; 5-9 mild; 10-14 moderate; 15-21 severe): 6 Source: Developed by Drs. Anmol Nuno, Katie Baez, oJse Garay and colleagues, with an educational susana from [employer]. Physical exam (Primary Care) Vital Signs: Last Vital Signs Pulse 107 H 08/25/23 08:40 BP 140/72 H 08/25/23 08:57 Pulse Ox 98 08/25/23 08:40 Oxygen Delivery Method Room Air 08/25/23 08:40 BMI result Body Mass Index 19.7 Tobacco/Smoking Status: Tobacco use Status Tobacco use date assessed 08/25/23 08/25/23 08:58 Patient Tobacco Use Status Current everyday Tobacco 08/25/23 08:58 e-Cigarette/Vaping Use Never Used 08/25/23 08:58 PHQ-9: PHQ-9 Score PHQ-9: Total score 18 08/25/23 09:01 Thrive Assessment: Date of Thrive Assessment Date Thrive assessed 08/25/23 08/25/23 08:58 Currently or been in a relationship where the following occur: no concerns reported Const General: cooperative and healthy appearing Nutritional Appearance: well nourished Orientation/consciousness: patient oriented x3 Limitations: no limitations HENMT Other: Nose: Right nostril: Blackened eschar along the ala. Head: Yes normal to inspection Eyes General: appearance normal, both eyes and all related structures Neck Neck: Yes normal visual inspection Chest Chest palpation & inspection: normal palpation of entire chest wall Resp Effort & Inspection: normal respiratory effort Neuro General: patient oriented x3 Office Procedures Flu Questionnaire Does the patient have a severe egg allergy?: No Does the patient have severe life threatening allergies?: No Does the patient have a fever or illness today?: No Has the patient ever had Guillain-[place] Syndrome?: No Has the patient ever had any past reaction to a flu shot?: No Immunizations flu vacc [id number] 6mos up(PF) 60 mcg(15 mcgx4)/0.5 mL IM syringe Performing Provider: Lucas Felton MD Performing Location: [facility] Administered by: Shelly Burgos CMA on 08/25/23 09:02 Dose Route Admin Location Dispensed Lot Number Expiration Date NDC Coal Gasification Technician 0.5 mL IM Left Deltoid 0.5 mL [id number] 04/22/24 [id number] [employer] VIS Given Date VIS Provided VIS Publication Date 08/25/23 Single Vaccine 21 Eligibility Eligibility Date Funding Source Not [facility] Eligible 08/25/23 Private Assessment and Plan Assessment & Plan (1) Pancreatic cancer: Code(s): C25.9 - Malignant neoplasm of pancreas, unspecified Qualifiers: Pancreatic malignancy location: pancreatic duct Qualified Code(s): 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 She has been diagnosed with IPMN and has been offered surgery. She sort opinion in [place] which suggested the same. Patient declines to have the procedure done. Under stands the consequences. She declines to have any further surgery around the right nostril. (2) Hypertension: Code(s): I10 - Essential (primary) hypertension Qualifiers: Hypertension type: primary hypertension Qualified Code(s): I10 - Essential (primary) hypertension Plan: Blood pressure is stable. Continue current medication. Orders: Orders Erythrocyte Sedimentation Rate 08/25/23 C25.9 - Malignant neoplasm of pancreas, unspecified, I10 - Essential (primary) hypertension Influenza [id number] Immunization 08/25/23 Z23 - Encounter for immunization Basic Metabolic Panel 08/25/23 C25.9 - Malignant neoplasm of pancreas, unspecified, I10 - Essential (primary) hypertension Complete Blood Count no Diff 08/25/23 C25.9 - Malignant neoplasm of pancreas, unspecified, I10 - Essential (primary) hypertension Lipid Panel 08/25/23 C25.9 - Malignant neoplasm of pancreas, unspecified, I10 - Essential (primary) hypertension Liver Panel 08/25/23 C25.9 - Malignant neoplasm of pancreas, unspecified, I10 - Essential (primary) hypertension Thyroid Stimulating Hormone 08/25/23 C25.9 - Malignant neoplasm of pancreas, unspecified, I10 - Essential (primary) hypertension Medications: New trazodone 50 mg PO BEDTIME PRN 90 tabs 0RF sleep Coding Level of Care Code Est Pt Level 4 (75976) Diagnoses Malignant neoplasm of pancreatic duct C25.3 Pancreatic malignancy location: pancreatic duct Primary hypertension I10 Hypertension type: primary hypertension
[2023-08-25 08:57] VITALS: BP 140/72
== END 2023-08-25 09:38 | disposition home or self-care (01) ==
PROVIDERS: PCP Internal Medicine; Visit Provider Internal Medicine
DX: Z23 Encounter for immunization (principal)
CPT/HCPCS: 90471; 90686; 99214

== ENCOUNTER 2023-08-29 07:18 | Outpatient (REF) | payer MEDICARE, OTHER, SELFPAY ==
[2023-08-29 08:07] LABS: Hematocrit 48.2 % (37.0-47.0); Mean Corpuscular HGB Conc 33.2 g/dl (31.0-35.0); Mean Corpuscular Hemoglobin 33.1 pg (27.0-33.0); Mean Corpuscular Volume 99.6 fL (80.0-98.0); Mean Platelet Volume 12.5 fL (9.4-12.3); Platelet Count 203 X10*3/uL (160-400); Red Blood Count 4.84 X10*6/uL (4.20-5.50); Red Cell Distribution Width 12.6 % (11.0-16.0); White Blood Count 8.2 X10*3/uL (4.8-10.8)
[2023-08-29 08:51] LABS: Erythrocyte Sedimentation Rate 2 MM/HR (0-20)
[2023-08-29 08:52] LABS: Alanine Aminotransferase 44 U/L (0-31); Albumin Level 4.2 g/dL (3.5-5.0); Alkaline Phosphatase 60 U/L (39-117); Anion Gap 16 (12-20); Aspartate Amino Transferase 30 U/L (5-31); Bilirubin Direct < 0.2 mg/dL (0.0-0.5); Bilirubin Total 0.2 mg/dL (0.0-1.0); Blood Urea Nitrogen 18 mg/dL (9-16); Calcium 9.5 mg/dL (8.4-10.2); Carbon Dioxide 24 mmol/L (22-29); Chloride 105 mmol/L (96-108); Cholesterol 176 mg/dL (<200); Estimated Glomerular Filt Rate > 60; Glucose Random 112 mg/dL (60-115); HDL Cholesterol 58 mg/dL (>40); LDL Cholesterol Calculated 96 mg/dL (<100); Potassium 4.7 mmol/L (3.3-5.1); Sodium 140 mmol/L (135-145); Thyroid Stimulating Hormone 0.75 uIU/mL (0.32-4.0); Total Protein 6.8 g/dL (6.5-8.0); Triglycerides 114 mg/dL (<150)
== END 2023-08-29 07:19 | disposition home or self-care (01) ==
LOC: HO.LAB 07:18
PROVIDERS: PCP Internal Medicine; Visit Provider Internal Medicine
DX: C25.9 Malignant neoplasm of pancreas, unspecified (principal); I10 Essential (primary) hypertension
CPT/HCPCS: 36415; 80048; 80061; 80076; 84443; 85027; 85652

== ENCOUNTER 2024-03-02 08:20 | Outpatient (AMB) | payer MEDICARE, OTHER, SELFPAY ==
--- NOTE | 2024-03-02 08:21 | A.OFFVIS_ITS ---
Vital Signs 03/02/24 08:29 Height 5 ft 5 in Weight 120 lb BMI 20.0 BP 167/79 H Blood Pressure Location Rt brachial Position Sitting Pulse 102 H Pulse Source Pulse Oximeter Pulse Oximetry (%) 98 Oxygen Delivery Method Room Air Intake Visit Reasons: Chronic Pain Syndrome Intake Note: Pain today 6 Patient states she last took oxycodone about 1 week ago. [employer] Required: No Accompanied by: Self / Same As Patient Allergies Acladwf-JLU-GsV Reductase Inhibitor Allergy (Intermediate, Verified 03/02/24 08:29) elevated liver enzymes HPI HPI Chronic Pain Syndrome: Details: Patient is a 68 years old female with history of chronic pain syndrome, 3 herniated cervical discs, scoliosis, lumbar spondylosis, deteriorating lumbar spine, possible nerve damage from pelvic surgery in 2020, fibromyalgia, arthritis, chronic fatigue, pancreatic pre-cancerous mass (followed at [facility] and [facility]), thyroid nodules (2 biopsies at [facility] 2022, both benign), right nose basal cell carcinoma (was offered a replacement cartilage from the ear-patient declined), depression presents today to discuss medical pain management. Patient reports history of a fall that herniated 3 cervical discs and was offered immediate surgery which patient declined. She was started on tramadol with advanced dose to 100 mg QID. By 2012, her neck and shoulder pain became unbearable and she was referred to Dr. Matt at [facility] and was deemed non-surgical and was offered physical therapy. During COVID outbreak in 2019, patient states her script for Tramadol was cancelled due to her missing a physical exam visit. She started cannabis use and trialled oxycodone 5 mg one tab per day without relief prescribed by her PCP. She notes opioid medication in the past for 15 years allowed her to be less symptomatic and more functional. Patient reports chronic neck and shoulder pain as well as lower back pain extending to her hips (left>right), buttocks and lower legs significantly affect her daily activities, functioning, mobility, sleep, mood, social and interactions. Any physical activity intensifies her pain which is worst at 1600 with pain rated at 8/10 and least severe around 0400 rated at 6/10. Patient has retired from [employer] in 2001 due to severe low back pain and fatigue. Denies any fever, bladder or bowel dysfunction, or saddle anesthesia. Patient is interested in interventional and medical management to manage her chronic pain generators. Patient denies alcohol or illicit drug use. Consumes 2-3 cups of coffee daily. She continues to take edible marijuana grown at home and smokes 1 PPD for past 60 years. Patient is interested in lung cancer screening and will be referred to our Pulmonary services. Patient reports good social support, has 8 siblings and states her depression has been well controlled on trazadone and lorazepam prn. She has also tried Celexa, Paxil, Wellbutrin and amitriptyline in the past. Patient used to follow [facility] in 2001 for depression. She denies following Mental support at this time and states she has close contact with her family who have been very supportive to her. Patient reports uncontrolled daily and constant significant pain has negatively affected her depressive states. Denies any suicidal ideation or hallucinations. Location: Lower back radiates to buttocks, hips, legs; neck, bilateral shoulders Duration: Chronic pain for many years, worsening since 2020 Characteristics of symptom or complaint: Pulsing, throbbing, pinching, aching, wrenching, stabbing,sharp, burning Aggravating or associated factors: Any movement, walking, standing, sitting, Relieving factors: Previously-Oxycodone, Tramadol; now-cannabis edible Treatment: PT for neck and shoulder, massage therapy [facility] Medical History (Updated 03/04/24 @ 21:18 by ELMO Adams) Degenerative disc disease, cervical Tobacco dependence Basal cell carcinoma Benzodiazepine dependence Pelvic mass in female H/O pelvic mass Depression Cervical disc herniation Surgical History History of surgery History of pelvic surgery History of hysterectomy Social History Housing: House Alcohol intake: current Alcohol intake frequency: holidays/special occasions only Patient Tobacco Use Status: Current everyday Tobacco user Tobacco use type: Cigarette Cigarette Packs Per Day: 0.5 Cigarettes Per Day: 10 e-Cigarette/Vaping Use: Never Used Second Hand Smoke Exposure: Yes service: No Current occupational status: retired Cognitive needs: No Hearing needs: No Vision needs: Yes Review of Systems Const All systems reviewed & are unremarkable except as noted in HPI and below Neuro Denies confusion and Denies memory loss Psych Reports as per HPI, Reports anxiety, Denies confusion, Reports depression, Reports difficulty concentrating (due to pain), Denies hopelessness, Reports anhedonia, Denies memory loss, Denies mood swings, Denies panic attacks, Denies paranoia, Denies visual hallucinations, Denies tactile hallucinations, Denies homicidal ideation and Denies suicidal ideation Physical Exam Vital Signs: Last Vital Signs Pulse 102 H 03/02/24 08:29 BP 167/79 H 03/02/24 08:29 Pulse Ox 98 03/02/24 08:29 Oxygen Delivery Method Room Air 03/02/24 08:29 BMI result Body Mass Index 20.0 General: Appears afebrile. Mild-moderate distress due to pain. Alert and oriented. Mood and affect appropriate. Pleasant. Follows and participates in conversation appropriately. Respiratory effort is unlabored. No cough. Able to transition from sit to stand unassisted. Ambulates with bilaterally normal heel strike and toe off, reports unsteadiness on the left due to pain. Const General: No confusion Orientation/consciousness: No confusion Neck Neck: Yes no lymphadenopathy, Yes supple, No anterior neck swelling and Yes no JVD General: Yes no CVA tenderness Back/Spine/Pelvis Back: no CVA tenderness Cervical Spine: No collar present, cervical muscular tenderness, pain with c ervical ROM, cervical spasm and No Cervical spine tenderness Thoracic/Lumbar Spine: thoracic and lumbar spine normal to inspection, No Thoracic/lumbar spine scar(s), Lasegue's sign negative, straight leg raise negative bilaterally, pain with thoraco-lumbar ROM, paraspinal muscle tenderness, thoraco-lumbar ROM limited, Thoracic/lumbar scoliosis, No thoracic spinal tenderness and lumbar spinal tenderness (L3-S1) Pelvis: buttock tenderness bilaterally Sacroiliac joints: bilaterally tender to palpation Skin Lesions: lesion noted (basal cell carcinoma) right nose Rashes: no rashes Neuro General: No confusion Extrem General: Yes capillary refill normal, Yes no clubbing, cyanosis or edema and Yes no calf tenderness Psych Appearance: grossly normal and well kempt Mental Status: mental status grossly normal Speech and movement: Normal speech and movement present and Clear speech present Affect: normal affect Attitude: cooperative Thought process: Normal thought process present Thought content: Normal thought content present, suicidality (none), no hallucinations and Depressive thoughts present Insight: Good insight present (Psych) Judgement: Good judgement present (Psych) Quality Reporting (2019) Depression/Bipolar (159/160/161/177) PHQ-9: Total score: 16 Results Reviewed Results Reviewed: MR CERVICAL SPINE WITHOUT CONTRAST 08/06/22 CLINICAL INFORMATION: 66-year-old with self-reported neck and bilateral shoulder pain and headaches. Cervical disc displacement. COMPARISON: 11/14/2012 MRI TECHNIQUE: MRI of the cervical spine was obtained using routine sequences without contrast. FINDINGS: Alignment: There is 2 mm of anterolisthesis at C3-C4 since the previous exam. There is 2 mm of retrolisthesis at C4-C5, stable in appearance. Otherwise normal alignment unchanged in appearance. Craniocervical Junction/C1-C2 Articulations: Intact and aligned. Visualized Intracranial Structures: Within normal limits. Vertebral Bodies: Normal height. Disc Spaces and Endplates: Severe disc space height loss at C4-C5 with Schmorl's nodes, disc desiccation and spondylosis similar to the previous exam. Mild disc space height loss at C3-C4, stable in appearance. Pbtiqhpo-ve-ojotiq disc space height loss at C5-C6 and C6-C7 with disc desiccation, tiny Schmorl's nodes and mild degrees of spondylosis, stable in appearance. Bone Marrow: Minor type I degenerative marrow signal changes seen along the endplates at C4-C5, C5-C6 and C6-C7 with associated type II degenerative marrow signal changes. Type II marrow signal change seen most prominently at C4-C5, stable in appearance. No suspicious marrow replacing process or other bone marrow edema. C2-C3: Mild posterior disc osteophyte complex asymmetric to the right, stable in appearance with slight flattening of the dural sac on the right, unchanged, without cord impingement or canal stenosis. There is uncovertebral and facet arthrosis bilaterally, with progression of facet arthrosis on the left. There is moderate right and mild left-sided neural foraminal stenosis, progressed on the left and stable on the right. C3-C4: Broad-based central disc protrusion similar to previous study with mild flattening of the central dural sac with trace anterolisthesis at this level on the current exam without cord impingement or canal stenosis. There is uncovertebral spurring, left more than right, with mild right and severe left-sided facet arthrosis, progressed on the left. There is kmvevcmq-zo-qcppgn left-sided and mild right-sided neural foraminal stenosis, largely unchanged. C4-C5: Mild retrolisthesis, with broad-based posterior disc osteophyte complex and a superimposed central disc herniation similar to the previous exam, with [id number]-ra-[id number] ventral cord impingement centrally with AP cord caliber of 5 mm, stable in appearance. There is associated moderate central spinal canal stenosis, stable in appearance. There is uncovertebral spurring and facet arthrosis bilaterally similar to the previous exam, with sbzlnviw-ph-tnyrvw left-sided and zikt-gr-bobbqazz right-sided neural foraminal stenosis, stable in appearance. C5-C6: Broad-based disc osteophyte complex noted asymmetric to the right, similar to the previous exam, with effacement of the dural sac on the right without cord compression, stable in appearance. Mild central canal stenosis is stable. Bilateral uncovertebral spurring and facet arthropathy is similar to the previous exam with bqsgzncu-nn-crvrat bilateral neural foraminal stenosis, stable in appearance. There is probable encroachment on the ventral root of C6 on the right, unchanged. C6-C7: Broad-based disc osteophyte complex with mild flattening of the ventral dural sac, stable in appearance, without cord impingement or canal stenosis. Bilateral uncovertebral spurring is again noted with mild right and moderate left-sided neural foraminal stenosis, stable in appearance. C7-T1: Small central to right paramedian disc osteophyte complex, stable in appearance, without significant facet arthrosis, canal or neuroforaminal stenosis. T1-T2: No disc herniation or canal stenosis. No significant DJD or neuroforaminal stenosis. Small perineural cysts noted bilaterally, stable in appearance. Spinal Cord: The cervical and visualized upper thoracic spinal cord is normal in signal intensity throughout, without focal lesion, edema or syrinx. Probable chronic spinal cord volume loss at C4-C5, unchanged. Extracranial Soft Tissues: 1.8 cm left thyroid lobe nodule is noted. Recommend follow-up thyroid ultrasound otherwise the visualized extraspinal soft tissues are grossly unremarkable in appearance. IMPRESSION: 1. Mild anterolisthesis at C3-C4 since the previous exam and mild retrolisthesis at C4-C5 stable in appearance. 2. Multilevel DDD and spondylosis largely stable in appearance with multilevel disc osteophyte complexes and disc herniations as described above largely similar in appearance to the previous exam with moderate central spinal canal stenosis at C4-C5 and mild central canal stenosis at C5-C6 stable in appearance. Aamk-ap-wzcseeuc ventral cord impingement at C4-C5 is stable with probable chronic spinal cord volume loss at this level unchanged. 3. Multilevel DJD as described above with progression of facet arthrosis on the left at C3-C4. Multilevel bilateral neural foraminal stenosis is largely stable in appearance as detailed by level above. 4. 1.8 cm left thyroid lobe nodule. Recommend follow-up thyroid ultrasound. Assessment & Plan Assessment & Plan (1) Lumbosacral spondylosis: Code(s): M47.817 - Spondylosis without myelopathy or radiculopathy, lumbosacral region Category: Medical (2) Tobacco dependence: Code(s): F17.200 - Nicotine dependence, unspecified, uncomplicated Category: Medical (3) Fibromyalgia: Code(s): M79.7 - Fibromyalgia Category: Medical (4) Chronic pain syndrome: Code(s): G89.4 - Chronic pain syndrome Category: Medical (5) Degenerative disc disease, cervical: Code(s): M50.30 - Other cervical disc degeneration, unspecified cervical region Category: Medical Plan Discussed interventional and medical pain management for chronic pain syndrome with multiple pain generators. Patient is interested to address her neck and lower back pain. We discussed neuromodulation, including SCS and ITDD trial vs implant, therapeutic vs diagnostic injections, PNS trial, RFA procedures. Informational pamphlets provided. Lumbar spine imaging to assess degree of degenerative changes, any subluxation, listhesis, compression fractures or pars defects. On evaluation, it was determined that there was a continued need for palliative chronic opioid prescribing. Risks and benefits were discussed with the patient at greater length. Patient believes she was more functional and less symptomatic on chronic opioids. [facility] was reviewed. Patient will follow up in 2 weeks for a UDS review and thoroughly review/sign contracts. She agreed to have the UDS performed immediately after this appointment. Patient is aware that this office can not prescribe until the UDS is reviewed and contracts are signed. Patient is also recommended to return to Behavioral Health for regular Mental counseling for depression and chronic pain. Pulmonology referral for lung cancer screening with long standing history of smoking 1 PPD x 60 years. All questions and concerns have been answered and patient agreed with the plan. Follow-up in 2 weeks for UDS/xray review and sooner as needed. I hereby testify that I spent 65 minutes in conversation with this patient as well as with planning and coordinating care for this patient, reviewing EMR and patient's narrative of chronological pain, medical and surgical history, and organizing and documenting this note. Orders: Orders XR lumbar spine 4V min 03/02/24 M47.817 - Spondylosis without myelopathy or radiculopathy, lumbosacral region Referrals Pulmonology Referral F17.200 - Nicotine dependence, unspecified, uncomplicated, Z12.2 - Encounter for screening for malignant neoplasm of respiratory organs Coding Level of Care Code New Pt Level 5 (64117) Diagnoses Lumbosacral spondylosis M47.817 Tobacco dependence F17.200 Fibromyalgia M79.7 Chronic pain syndrome G89.4 Degenerative disc disease, cervical M50.30 PHQ-9 Over the last 2 weeks, how often have you been bothered by any of the following problems? 1. Little interest or pleasure in doing things: nearly every day 2. Feeling down, depressed, or hopeless: nearly every day 3. Trouble falling or staying asleep, or sleeping too much: nearly every day 4. Feeling tired or having little energy: nearly every day 5. Poor appetite or overeating: not at all 6. Feeling bad about yourself - or that you are a failure or have let yourself or your family down: not at all 7. Trouble concentrating on things, such as reading the newspaper or watching television: nearly every day 8. Moving or speaking so slowly that other people could have noticed. Or the opposite - being so fidgety or restless that you have been moving around a lot more than usual: several days 9. Thoughts that you would be better off or of hurting yourself in some way: not at all Total score: 16 Depression Screening Interpretation: Positive Depression Screening Follow-up: Existing condition and In treatment Depression Screening Done: Yes 34174 - PHQ-9 Billing: Yes Source: Developed by Drs. Anmol Nuno, Katie Baez, Jose Garay and colleagues, with an educational susana from [employer].
[2024-03-02 08:29] VITALS: BP 167/79; PULSE 102; O2SAT 98
== END 2024-03-02 09:17 | disposition home or self-care (01) ==
PROVIDERS: PCP Internal Medicine; Visit Provider Nurse Practitioner Family
DX: G89.4 Chronic pain syndrome (principal); M47.817 Spondylosis without myelopathy or radiculopathy, lumbosacral region; M79.7 Fibromyalgia; M50.30 Other cervical disc degeneration, unspecified cervical region; F17.200 Nicotine dependence, unspecified, uncomplicated
CPT/HCPCS: 99205

== ENCOUNTER → 2024-03-02 08:20 | Outpatient (BNVA) | payer MEDICARE, OTHER, SELFPAY | PROVIDERS: PCP Internal Medicine; Visit Provider Nurse Practitioner Family | DX: G89.4 Chronic pain syndrome (principal); M47.817 Spondylosis without myelopathy or radiculopathy, lumbosacral region; M79.7 Fibromyalgia; M50.30 Other cervical disc degeneration, unspecified cervical region; F17.210 Nicotine dependence, cigarettes, uncomplicated | CPT/HCPCS: 99202 ==

== ENCOUNTER 2024-03-16 08:53 | Outpatient (AMB) | payer MEDICARE, OTHER, SELFPAY ==
--- NOTE | 2024-03-16 08:54 | MHC.OFFVIS ---
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 UDS was consistent. Detailed risk assessment scanned under activity tab. Contract reviewed and signed. On evaluation, it was determined that there was a need for a palliative chronic opioid prescribing. Risks and benefits were discussed with the patient. She believes she was more functional and less symptomatic on chronic opioids. Patient reports infrequent use of lorazepam for depression and sleep, but has not picked up this month script. MassPAT was reviewed and is consistent with her history. PHQ-9 SCORE: 16 OPIOID RISK STRATIFICATION SURVEY SCORE: 31 Given this, she is deemed to be a SEVERE RISK for chronic opioid addiction. Educated patient on intermodal dispatcher effects of opioid use including sexual dysfunction, cardiac, renal and immunosuppressive effects. The patient understands that the medication she is requesting is an opioid, which carries risks of dependence, tolerance, hyperalgesia, addiction, respiratory failure and possibly . She verbalized understanding of this and accepts these risks on her own volition. The patient accepts the responsibility to adhere to the medication use agreement. There is no evidence of misuse, abuse or diversion at this time. She is aware she will be required to attend monthly pill counts and if there are any discrepancies, because of her risk of addiction she will be suspended INDEFINITELY. PRIOR: Patient is a 68 years old female with history of chronic pain syndrome, 3 herniated cervical discs, scoliosis, lumbar spondylosis, deteriorating lumbar spine, possible nerve damage from pelvic surgery in 2020, fibromyalgia, arthritis, chronic fatigue, pancreatic pre-cancerous mass (followed at [facility] and [facility]), thyroid nodules (2 biopsies at [facility] 2022, both benign), right nose basal cell carcinoma (was offered a replacement cartilage from the ear-patient declined), depression presents today to discuss medical pain management. Patient reports history of a fall that herniated 3 cervical discs and was offered immediate surgery which patient declined. She was started on tramadol with advanced dose to 100 mg QID. By 2012, her neck and shoulder pain became unbearable and she was referred to Dr. Matt at [facility] and was deemed non-surgical and was offered physical therapy. During COVID outbreak in 2019, patient states her script for Tramadol was cancelled due to her missing a physical exam visit. She started cannabis use and trialled oxycodone 5 mg one tab per day without relief prescribed by her PCP. She notes opioid medication in the past for 15 years allowed her to be less symptomatic and more functional. Patient reports chronic neck and shoulder pain as well as lower back pain extending to her hips (left>right), buttocks and lower legs significantly affect her daily activities, functioning, mobility, sleep, mood, social and interactions. Any physical activity intensifies her pain which is worst at 1600 with pain rated at 8/10 and least severe around 0400 rated at 6/10. Patient has retired from [employer] in 2001 due to severe low back pain and fatigue. Denies any fever, bladder or bowel dysfunction, or saddle anesthesia. Patient is interested in interventional and medical management to manage her chronic pain generators. Patient denies alcohol or illicit drug use. Consumes 2-3 cups of coffee daily. She continues to take edible marijuana grown at home and smokes 1 PPD for past 60 years. Patient is interested in lung cancer screening and will be referred to our Pulmonary services. Patient reports good social support, has 8 siblings and states her depression has been well controlled on trazadone and lorazepam prn. She has also tried Celexa, Paxil, Wellbutrin and amitriptyline in the past. Patient used to follow [facility] in 2001 for depression. She denies following Mental support at this time and states she has close contact with her family who have been very supportive to her. Patient reports uncontrolled daily and constant significant pain has negatively affected her depressive states. Denies any suicidal ideation or hallucinations. Location: Lower back radiates to buttocks, hips, legs; neck, bilateral shoulders Duration: Chronic pain for many years, worsening since 2020 Characteristics of symptom or complaint: Pulsing, throbbing, pinching, aching, wrenching, stabbing,sharp, burning Aggravating or associated factors: Any movement, walking, standing, sitting, Relieving factors: Previously-Oxycodone, Tramadol; now-cannabis edible Treatment: PT for neck and shoulder, massage therapy [facility] Medical History Degenerative disc disease, cervical Tobacco dependence Basal cell carcinoma Benzodiazepine dependence Pelvic mass in female H/O pelvic mass Depression Cervical disc herniation Surgical History History of surgery History of pelvic surgery History of hysterectomy Social History Housing: House Alcohol intake: current Alcohol intake frequency: holidays/special occasions only Patient Tobacco Use Status: Current everyday Tobacco user Tobacco use type: Cigarette Cigarette Packs Per Day: 0.5 Cigarettes Per Day: 10 e-Cigarette/Vaping Use: Never Used Second Hand Smoke Exposure: Yes service: No Current occupational status: retired Cognitive needs: No Hearing needs: No Vision needs: Yes Review of Systems Const All systems reviewed & are unremarkable except as noted in HPI and below Reports as per HPI, Denies body aches, Denies chills, Reports difficulty sleeping, Denies fever(s), Denies frequent falls, Denies malaise, Denies night sweats and Denies weight loss ENT Reports neck pain Card Denies chest pain, Denies chest pain with activity, Denies syncope, Denies irregular heart rhythm, Denies lightheadedness, Denies radiating jaw, neck or arm pain, Denies palpitations and Denies dyspnea on exertion Resp Denies cough and Denies dyspnea on exertion GI Denies abdominal pain, Denies change in stool character, Denies constipation, Denies fecal incontinence, Denies loose stools and Denies nausea Musc Reports back pain, Denies myalgias, Reports arthralgias, Denies joint swelling, Reports limited range of motion, Denies muscle weakness, Reports neck pain and Reports stiffness Neuro Denies confusion, Denies syncope, Denies frequent falls and Denies memory loss Psych Reports anxiety, Denies confusion, Reports depression, Denies auditory hallucinations, Denies hopelessness, Denies memory loss, Denies panic attacks, Denies tactile hallucinations, Denies homicidal ideation and Denies suicidal ideation Endo Denies palpitations Physical Exam Vital Signs: Last Vital Signs Pulse 118 H 03/16/24 09:00 BP 190/95 H 03/16/24 09:00 Pulse Ox 99 03/16/24 09:00 Oxygen Delivery Method Room Air 03/16/24 09:00 BMI result Body Mass Index 19.5 General: Appears afebrile. Alert and oriented. Mood and affect appropriate. Follows and participates in conversation appropriately. Respiratory effort is unlabored. No cough. Able to transition from sit to stand unassisted. Ambulates with bilaterally normal heel strike and toe off. Const General: No confusion Orientation/consciousness: No confusion Back/Spine/Pelvis Cervical Spine: cervical muscular tenderness, pain with cervical ROM and No Cervical spine tenderness Thoracic/Lumbar Spine: thoracic and lumbar spine normal to inspection, No Thoracic/lumbar spine scar(s), Lasegue's sign negative, straight leg raise negative bilaterally, pain with thoraco-lumbar ROM, paraspinal muscle tenderness, thoraco-lumbar ROM limited, Thoracic/lumbar scoliosis, No thoracic spinal tenderness and lumbar spinal tenderness (L3-S1) Pelvis: buttock tenderness bilaterally Sacroiliac joints: bilaterally tender to palpation Skin Lesions: lesion noted (basal cell carcinoma) Rashes: no rashes Neuro General: No confusion Extrem General: Yes capillary refill normal, Yes no clubbing, cyanosis or edema and Yes no calf tenderness Psych Appearance: grossly normal and well kempt Mental Status: mental status grossly normal Speech and movement: Normal speech and movement present and Clear speech present Affect: normal affect Attitude: cooperative Thought process: Normal thought process present Thought content: Normal thought content present, suicidality (none), no hallucinations and Depressive thoughts present Insight: Good insight present (Psych) Judgement: Good judgement present (Psych) Results Reviewed Results Reviewed: MR CERVICAL SPINE WITHOUT CONTRAST 08/06/22 CLINICAL INFORMATION: 66-year-old with self-reported neck and bilateral shoulder pain and headaches. Cervical disc displacement. COMPARISON: 11/14/2012 MRI TECHNIQUE: MRI of the cervical spine was obtained using routine sequences without contrast. FINDINGS: Alignment: There is 2 mm of anterolisthesis at C3-C4 since the previous exam. There is 2 mm of retrolisthesis at C4-C5, stable in appearance. Otherwise normal alignment unchanged in appearance. Craniocervical Junction/C1-C2 Articulations: Intact and aligned. Visualized Intracranial Structures: Within normal limits. Vertebral Bodies: Normal height. Disc Spaces and Endplates: Severe disc space height loss at C4-C5 with Schmorl's nodes, disc desiccation and spondylosis similar to the previous exam. Mild disc space height loss at C3-C4, stable in appearance. Htvvwtlc-ql-fqsvxg disc space height loss at C5-C6 and C6-C7 with disc desiccation, tiny Schmorl's nodes and mild degrees of spondylosis, stable in appearance. Bone Marrow: Minor type I degenerative marrow signal changes seen along the endplates at C4-C5, C5-C6 and C6-C7 with associated type II degenerative marrow signal changes. Type II marrow signal change seen most prominently at C4-C5, stable in appearance. No suspicious marrow replacing process or other bone marrow edema. C2-C3: Mild posterior disc osteophyte complex asymmetric to the right, stable in appearance with slight flattening of the dural sac on the right, unchanged, without cord impingement or canal stenosis. There is uncovertebral and facet arthrosis bilaterally, with progression of facet arthrosis on the left. There is moderate right and mild left-sided neural foraminal stenosis, progressed on the left and stable on the right. C3-C4: Broad-based central disc protrusion similar to previous study with mild flattening of the central dural sac with trace anterolisthesis at this level on the current exam without cord impingement or canal stenosis. There is uncovertebral spurring, left more than right, with mild right and severe left-sided facet arthrosis, progressed on the left. There is aciozatp-os-grboao left-sided and mild right-sided neural foraminal stenosis, largely unchanged. C4-C5: Mild retrolisthesis, with broad-based posterior disc osteophyte complex and a superimposed central disc herniation similar to the previous exam, with brcl-pk-dyydnurs ventral cord impingement centrally with AP cord caliber of 5 mm, stable in appearance. There is associated moderate central spinal canal stenosis, stable in appearance. There is uncovertebral spurring and facet arthrosis bilaterally similar to the previous exam, with uosbtnos-mf-ufosxt left-sided and jgxp-wo-tolzwqbj right-sided neural foraminal stenosis, stable in appearance. C5-C6: Broad-based disc osteophyte complex noted asymmetric to the right, similar to the previous exam, with effacement of the dural sac on the right without cord compression, stable in appearance. Mild central canal stenosis is stable. Bilateral uncovertebral spurring and facet arthropathy is similar to the previous exam with yvihcmec-zg-kwfien bilateral neural foraminal stenosis, stable in appearance. There is probable encroachment on the ventral root of C6 on the right, unchanged. C6-C7: Broad-based disc osteophyte complex with mild flattening of the ventral dural sac, stable in appearance, without cord impingement or canal stenosis. Bilateral uncovertebral spurring is again noted with mild right and moderate left-sided neural foraminal stenosis, stable in appearance. C7-T1: Small central to right paramedian disc osteophyte complex, stable in appearance, without significant facet arthrosis, canal or neuroforaminal stenosis. T1-T2: No disc herniation or canal stenosis. No significant DJD or neuroforaminal stenosis. Small perineural cysts noted bilaterally, stable in appearance. Spinal Cord: The cervical and visualized upper thoracic spinal cord is normal in signal intensity throughout, without focal lesion, edema or syrinx. Probable chronic spinal cord volume loss at C4-C5, unchanged. Extracranial Soft Tissues: 1.8 cm left thyroid lobe nodule is noted. Recommend follow-up thyroid ultrasound otherwise the visualized extraspinal soft tissues are grossly unremarkable in appearance. IMPRESSION: 1. Mild anterolisthesis at C3-C4 since the previous exam and mild retrolisthesis at C4-C5 stable in appearance. 2. Multilevel DDD and spondylosis largely stable in appearance with multilevel disc osteophyte complexes and disc herniations as described above largely similar in appearance to the previous exam with moderate central spinal canal stenosis at C4-C5 and mild central canal stenosis at C5-C6 stable in appearance. Wslw-qd-iyqglxwv ventral cord impingement at C4-C5 is stable with probable chronic spinal cord volume loss at this level unchanged. 3. Multilevel DJD as described above with progression of facet arthrosis on the left at C3-C4. Multilevel bilateral neural foraminal stenosis is largely stable in appearance as detailed by level above. 4. 1.8 cm left thyroid lobe nodule. Recommend follow-up thyroid ultrasound. Assessment & Plan Assessment & Plan (1) Lumbosacral spondylosis: Code(s): M47.817 - Spondylosis without myelopathy or radiculopathy, lumbosacral region Category: Medical (2) Chronic pain syndrome: Code(s): G89.4 - Chronic pain syndrome Category: Medical (3) Degenerative disc disease, cervical: Code(s): M50.30 - Other cervical disc degeneration, unspecified cervical region Category: Medical (4) Fibromyalgia: Code(s): M79.7 - Fibromyalgia Category: Medical (5) Basal cell carcinoma: Code(s): C44.91 - Basal cell carcinoma of skin, unspecified Category: Medical Plan Patient presents for UDS review and opioid contract paperwork review. UDS was consistent. Per risk assessment, she is at high risk for adverse effects from opioids. PHQ score was 31. Detailed risk assessment scanned under activity tab. Contract reviewed and signed. Patient will start oxycodone 5 mg TID prn for moderate-severe pain. Script sent today for #45 tabs for 15 days. Discussed with the patient the risks associated with benzodiazepine and opioid use. She is aware and verbalized an agreement to take the medications at least two hours apart. Narcan script sent today.? All questions and concerns have been answered and patient agreed with the plan. Follow up in 2 weeks and sooner as needed. Medications: New oxycodone Partial Fill upon patient request. 5 mg PO Q8H 15 days PRN 45 tabs 0RF pain G89.4 - Chronic pain syndrome, M47.817 - Spondylosis without myelopathy or radiculopathy, lumbosacral region, M50.30 - Other cervical disc degeneration, unspecified cervical region naloxone 4 mg/actuation (Narcan) spray 1 dose into ONE nostril; alternate nostrils w each dose until help arrives 4 mg intranasal Q2M PRN 2 ea 0RF opioid overdose Coding Level of Care Code Est Pt Level 4 (70150) Diagnoses Lumbosacral spondylosis M47.817 Chronic pain syndrome G89.4 Degenerative disc disease, cervical M50.30 Fibromyalgia M79.7 Basal cell carcinoma C44.91
[2024-03-16 09:00] VITALS: BP 190/95; PULSE 118; O2SAT 99; BMI 19.5
== END 2024-03-16 09:25 | disposition home or self-care (01) ==
PROVIDERS: PCP Internal Medicine; Visit Provider Nurse Practitioner Family
DX: G89.4 Chronic pain syndrome (principal); M47.817 Spondylosis without myelopathy or radiculopathy, lumbosacral region; M50.30 Other cervical disc degeneration, unspecified cervical region; M79.7 Fibromyalgia; C44.91 Basal cell carcinoma of skin, unspecified
CPT/HCPCS: 99214

== ENCOUNTER → 2024-03-16 08:53 | Outpatient (BNVA) | payer MEDICARE, OTHER, SELFPAY | PROVIDERS: PCP Internal Medicine; Visit Provider Nurse Practitioner Family | DX: M47.817 Spondylosis without myelopathy or radiculopathy, lumbosacral region (principal); M79.7 Fibromyalgia; M50.30 Other cervical disc degeneration, unspecified cervical region; Z79.891 Long term (current) use of opiate analgesic; G89.4 Chronic pain syndrome; C44.91 Basal cell carcinoma of skin, unspecified | CPT/HCPCS: 99212 ==

== ENCOUNTER 2024-03-30 08:48 | Outpatient (AMB) | payer MEDICARE, OTHER, SELFPAY ==
--- NOTE | 2024-03-30 08:51 | A.OFFVIS_ITS ---
Vital Signs 03/30/24 08:56 Height 5 ft 5 in Weight 120 lb BMI 20.0 BP 169/79 H Blood Pressure Location Lt brachial Position Sitting Pulse 98 Pulse Source Pulse Oximeter Pulse Oximetry (%) 97 Oxygen Delivery Method Room Air Intake Visit Reasons: PILL COUNT Intake Note: Katerina comes in today for a pill count to oxycodone, patient should have 6 tablets and presents with 5 tablets which she last took today 03/30/24 at 4:45am. Pain today 01/31 Senior Service Technician Required: No Accompanied by: Self / Same As Patient Allergies Lpsedmm-WWF-XnI Reductase Inhibitor Allergy (Intermediate, Verified 03/30/24 08:56) elevated liver enzymes HPI Comments Details: Patient presents today for a pill count. Patient is supposed to have #6 pills, in her possession has #5 pills. This demonstrates a responsible attitude in regards to the medication regimen. Patient reports mild to moderate pain relief on her regimen of oxycodone 5 mg TID prn. She reports average pain during the day -06/02 and states oxycodone 5 mg does not alleviate her moderate-severe pain states. Denies any noted side effects. Denies any fever, chills, constipation, nausea, sedation, dizziness, or urinary retention. Patient states she has an increased ability to perform activities of daily living, interact socially and be more functional. PRIOR: Patient is a 68 years old female with history of chronic pain syndrome, 3 herniated cervical discs, scoliosis, lumbar spondylosis, deteriorating lumbar spine, possible nerve damage from pelvic surgery in 2020, fibromyalgia, arthritis, chronic fatigue, pancreatic pre-cancerous mass (followed at [facility]), thyroid nodules (2 biopsies at [facility] 2022, both benign), right nose basal cell carcinoma (was offered a replacement cartilage from the ear-patient declined), depression presents today to discuss medical pain management. Patient reports history of a fall that herniated 3 cervical discs and was offered immediate surgery which patient declined. She was started on tramadol with advanced dose to 100 mg QID. By 2012, her neck and shoulder pain became unbearable and she was referred to Dr. Matt at [facility] and was deemed non-surgical and was offered physical therapy. During COVID outbreak in 2019, patient states her script for Tramadol was cancelled due to her missing a physical exam visit. She started cannabis use and trialled oxycodone 5 mg one tab per day without relief prescribed by her PCP. She notes opioid medication in the past for 15 years allowed her to be less symptomatic and more functional. Patient reports chronic neck and shoulder pain as well as lower back pain extending to her hips (left>right), buttocks and lower legs significantly affect her daily activities, functioning, mobility, sleep, mood, social and interactions. Any physical activity intensifies her pain which is worst at 1600 with pain rated at 8/10 and least severe around 0400 rated at 6/10. Patient has retired from [employer] in 2001 due to severe low back pain and fatigue. Denies any fever, bladder or bowel dysfunction, or saddle anesthesia. Patient is interested in interventional and medical management to manage her chronic pain generators. Patient denies alcohol or illicit drug use. Consumes 2-3 cups of coffee daily. She continues to take edible marijuana grown at home and smokes 1 PPD for past 60 years. Patient is interested in lung cancer screening and will be referred to our Pulmonary services. Patient reports good social support, has 8 siblings and states her depression has been well controlled on trazadone and lorazepam prn. She has also tried Celexa, Paxil, Wellbutrin and amitriptyline in the past. Patient used to follow [facility] in 2001 for depression. She denies following Mental support at this time and states she has close contact with her family who have been very supportive to her. Patient reports uncontrolled daily and constant significant pain has negatively affected her depressive states. Denies any suicidal ideation or hallucinations. Location: Lower back radiates to buttocks, hips, legs; neck, bilateral shoulders Duration: Chronic pain for many years, worsening since 2020 Characteristics of symptom or complaint: Pulsing, throbbing, pinching, aching, wrenching, stabbing,sharp, burning Aggravating or associated factors: Any movement, walking, standing, sitting, Relieving factors: Previously-Oxycodone, Tramadol; now-cannabis edible Treatment: PT for neck and shoulder, massage therapy [facility] Medical History Pancreatic cancer Basal cell carcinoma Degenerative disc disease, cervical Cervical disc herniation Benzodiazepine dependence Nicotine dependence, cigarettes, uncomplicated Pelvic mass in female H/O pelvic mass Depression Surgical History History of basal cell carcinoma excision History of surgery History of pelvic surgery History of hysterectomy Social History Housing: House Alcohol intake: current Alcohol intake frequency: holidays/special occasions only Patient Tobacco Use Status: Current everyday Tobacco user Tobacco use type: Cigarette Cigarette Packs Per Day: 0.5 Cigarettes Per Day: 10 e-Cigarette/Vaping Use: Never Used Second Hand Smoke Exposure: Yes service: No Current occupational status: retired Cognitive needs: No Hearing needs: No Vision needs: Yes Review of Systems Const All systems reviewed & are unremarkable except as noted in HPI and below Physical Exam Vital Signs: Last Vital Signs Pulse 98 03/30/24 08:56 BP 169/79 H 03/30/24 08:56 Pulse Ox 97 03/30/24 08:56 Oxygen Delivery Method Room Air 03/30/24 08:56 BMI result Body Mass Index 20.0 General: Appears afebrile. Alert and oriented. Mood and affect appropriate. Follows and participates in conversation appropriately. Respiratory effort is unlabored. No cough. No nasal discharge. Able to transition from sit to stand unassisted. Ambulates with bilaterally normal heel strike and toe off. Psych Appearance: grossly normal and well kempt Mental Status: mental status grossly normal Speech and movement: Normal speech and movement present and Clear speech present Affect: normal affect Attitude: cooperative Thought process: Normal thought process present Thought content: Normal thought content present, suicidality, no hallucinations and Depressive thoughts present Insight: Good insight present (Psych) Judgement: Good judgement present (Psych) Results Reviewed Results Reviewed: MR CERVICAL SPINE WITHOUT CONTRAST 08/06/22 CLINICAL INFORMATION: 66-year-old with self-reported neck and bilateral shoulder pain and headaches. Cervical disc displacement. COMPARISON: 11/14/2012 MRI TECHNIQUE: MRI of the cervical spine was obtained using routine sequences without contrast. FINDINGS: Alignment: There is 2 mm of anterolisthesis at C3-C4 since the previous exam. There is 2 mm of retrolisthesis at C4-C5, stable in appearance. Otherwise normal alignment unchanged in appearance. Craniocervical Junction/C1-C2 Articulations: Intact and aligned. Visualized Intracranial Structures: Within normal limits. Vertebral Bodies: Normal height. Disc Spaces and Endplates: Severe disc space height loss at C4-C5 with Schmorl's nodes, disc desiccation and spondylosis similar to the previous exam. Mild disc space height loss at C3-C4, stable in appearance. Wxbqewpr-fh-fexazg disc space height loss at C5-C6 and C6-C7 with disc desiccation, tiny Schmorl's nodes and mild degrees of spondylosis, stable in appearance. Bone Marrow: Minor type I degenerative marrow signal changes seen along the endplates at C4-C5, C5-C6 and C6-C7 with associated type II degenerative marrow signal changes. Type II marrow signal change seen most prominently at C4-C5, stable in appearance. No suspicious marrow replacing process or other bone marrow edema. C2-C3: Mild posterior disc osteophyte complex asymmetric to the right, stable in appearance with slight flattening of the dural sac on the right, unchanged, without cord impingement or canal stenosis. There is uncovertebral and facet arthrosis bilaterally, with progression of facet arthrosis on the left. There is moderate right and mild left-sided neural foraminal stenosis, progressed on the left and stable on the right. C3-C4: Broad-based central disc protrusion similar to previous study with mild flattening of the central dural sac with trace anterolisthesis at this level on the current exam without cord impingement or canal stenosis. There is uncovertebral spurring, left more than right, with mild right and severe left-sided facet arthrosis, progressed on the left. There is hvywdhaj-ym-tsuvro left-sided and mild right-sided neural foraminal stenosis, largely unchanged. C4-C5: Mild retrolisthesis, with broad-based posterior disc osteophyte complex and a superimposed central disc herniation similar to the previous exam, with xgne-pl-ojycwbok ventral cord impingement centrally with AP cord caliber of 5 mm, stable in appearance. There is associated moderate central spinal canal stenosis, stable in appearance. There is uncovertebral spurring and facet arthrosis bilaterally similar to the previous exam, with gcmoocsl-to-uisouy left-sided and wapq-kx-beaemfho right-sided neural foraminal stenosis, stable in appearance. C5-C6: Broad-based disc osteophyte complex noted asymmetric to the right, similar to the previous exam, with effacement of the dural sac on the right without cord compression, stable in appearance. Mild central canal stenosis is stable. Bilateral uncovertebral spurring and facet arthropathy is similar to the previous exam with wdtfldhh-zj-nabcwi bilateral neural foraminal stenosis, stable in appearance. There is probable encroachment on the ventral root of C6 on the right, unchanged. C6-C7: Broad-based disc osteophyte complex with mild flattening of the ventral dural sac, stable in appearance, without cord impingement or canal stenosis. Bilateral uncovertebral spurring is again noted with mild right and moderate left-sided neural foraminal stenosis, stable in appearance. C7-T1: Small central to right paramedian disc osteophyte complex, stable in appearance, without significant facet arthrosis, canal or neuroforaminal stenosis. T1-T2: No disc herniation or canal stenosis. No significant DJD or neuroforaminal stenosis. Small perineural cysts noted bilaterally, stable in appearance. Spinal Cord: The cervical and visualized upper thoracic spinal cord is normal in signal intensity throughout, without focal lesion, edema or syrinx. Probable chronic spinal cord volume loss at C4-C5, unchanged. Extracranial Soft Tissues: 1.8 cm left thyroid lobe nodule is noted. Recommend follow-up thyroid ultrasound otherwise the visualized extraspinal soft tissues are grossly unremarkable in appearance. IMPRESSION: 1. Mild anterolisthesis at C3-C4 since the previous exam and mild retrolisthesis at C4-C5 stable in appearance. 2. Multilevel DDD and spondylosis largely stable in appearance with multilevel disc osteophyte complexes and disc herniations as described above largely similar in appearance to the previous exam with moderate central spinal canal stenosis at C4-C5 and mild central canal stenosis at C5-C6 stable in appearance. Pqwj-mu-emstjinw ventral cord impingement at C4-C5 is stable with probable chronic spinal cord volume loss at this level unchanged. 3. Multilevel DJD as described above with progression of facet arthrosis on the left at C3-C4. Multilevel bilateral neural foraminal stenosis is largely stable in appearance as detailed by level above. 4. 1.8 cm left thyroid lobe nodule. Recommend follow-up thyroid ultrasound. Assessment & Plan Assessment & Plan (1) Lumbosacral spondylosis: Code(s): M47.817 - Spondylosis without myelopathy or radiculopathy, lumbosacral region Category: Medical (2) Chronic pain syndrome: Code(s): G89.4 - Chronic pain syndrome Category: Medical (3) Degenerative disc disease, cervical: Code(s): M50.30 - Other cervical disc degeneration, unspecified cervical region Category: Medical (4) Fibromyalgia: Code(s): M79.7 - Fibromyalgia Category: Medical (5) Opiate analgesic contract exists: Code(s): Z79.891 - intermodal customer service (current) use of opiate analgesic Category: Medical Plan Patient has shown accountability for her medication regimen and the pill count was accurate. There is no evidence of misuse, abuse or diversion at this time. [employer] reviewed. Script sent with advanced date of 03/31/24 for oxycodone 5 mg with increased dose from TID to QID prn for moderate-severe pain. Discussed with the patient the risks associated with benzodiazepine and opioid use. She is aware and verbalized an agreement to take the medications at least two hours apart. Patient has Narcan at home. All questions and concerns have been answered and patient agreed with the plan. Follow up in 4 weeks and sooner as needed. Medications: Changed From oxycodone Partial Fill upon patient request. 5 mg PO Q8H 8 days PRN 24 tabs 0RF pain G89.4 - Chronic pain syndrome, M47.817 - Spondylosis without myelopathy or radi culopathy, lumbosacral region, M50.30 - Other cervical disc degeneration, unspecified cervical region, Z79.891 - intermodal customer service (current) use of opiate analgesic To oxycodone Partial Fill upon patient request. 5 mg PO QID 30 days PRN 120 tabs 0RF pain G89.4 - Chronic pain syndrome, M47.817 - Spondylosis without myelopathy or radiculopathy, lumbosacral region, M50.30 - Other cervical disc degeneration, unspecified cervical region, Z79.891 - custodial (current) use of opiate analgesic Coding Level of Care Code Est Pt Level 4 (99548) Diagnoses Lumbosacral spondylosis M47.817 Chronic pain syndrome G89.4 Degenerative disc disease, cervical M50.30 Fibromyalgia M79.7 Opiate analgesic contract exists Z79.891
[2024-03-30 08:56] VITALS: BP 169/79; PULSE 98; O2SAT 97
== END 2024-03-30 09:11 | disposition home or self-care (01) ==
PROVIDERS: PCP Internal Medicine; Visit Provider Nurse Practitioner Family
DX: G89.4 Chronic pain syndrome (principal); M47.817 Spondylosis without myelopathy or radiculopathy, lumbosacral region; M50.30 Other cervical disc degeneration, unspecified cervical region; Z79.891 Long term (current) use of opiate analgesic; M79.7 Fibromyalgia
CPT/HCPCS: 99214

== ENCOUNTER → 2024-03-30 08:48 | Outpatient (BNVA) | payer MEDICARE, OTHER, SELFPAY | PROVIDERS: PCP Internal Medicine; Visit Provider Nurse Practitioner Family | DX: Z51.81 Encounter for therapeutic drug level monitoring (principal); M47.817 Spondylosis without myelopathy or radiculopathy, lumbosacral region; M50.30 Other cervical disc degeneration, unspecified cervical region; M79.7 Fibromyalgia; G89.4 Chronic pain syndrome; Z79.891 Long term (current) use of opiate analgesic | CPT/HCPCS: 99212 ==

== ENCOUNTER 2024-04-13 10:08 | Outpatient (AMB) | payer MEDICARE, OTHER, SELFPAY ==
--- NOTE | 2024-04-13 07:46 | A.OFFVIS_ITS ---
Intake Visit Reasons: Current Smoker Allergies Iwfxunr-LVT-LfG Reductase Inhibitor Allergy (Intermediate, Verified 03/30/24 0 8:56) elevated liver enzymes HPI HPI Current Smoker: Details: Initial visit for this 68yo smoker with a 50PYH. Patient has been smoking since age 8 for 60 years at 1ppd. . Denies marijuana use. Denies second hand smoke exposure. Denies exposure to chemicals or substances like asbestos. . Reports family history of lung cancer. Maternal Grandfather age 67 Reports personal history of cancers. 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 . Denies recent travel outside the [place]. Denies recent respiratory illness or recent hospitalization for respiratory issues. Reportstesting positive for COVID. x3. Admits receiving COVID Vaccine. x 3. . Denies fever, chills, new/worsening cough, hemoptysis, hoarseness or dysphagia. Denies significant chest pain, significant dyspnea or unintentional weight loss. Patient Lung Cancer Screening Questionnaire reviewed with patient by provider. . Shared Decision Making Completed. Patient meets criteria. Discussed in detail with patient, the risk vs benefit of LDCT screening. Patient consents to proceed with scan. Discussed smoking cessation. [facility] Medical History (Updated 04/13/24 @ 10:19 by Bee Valdez PA-C) Pancreatic cancer Basal cell carcinoma Hypertension Opiate analgesic contract exists Benzodiazepine dependence Chronic pain syndrome Degenerative disc disease, cervical Cervical disc herniation Nicotine dependence, cigarettes, uncomplicated Depression H/O pelvic mass Surgical History (Updated 04/13/24 @ 10:27 by Bee Valdez PA-C) History of basal cell carcinoma excision History of pelvic surgery History of hysterectomy Family History (Updated 04/13/24 @ 10:28 by Bee Valdez PA-C) Maternal Grandfather Lung cancer, Onset Age: 67 Social History (Updated 04/13/24 @ 10:18 by Bee Valdez PA-C) Housing: House Alcohol intake: current Alcohol intake frequency: holidays/special occasions only Patient Tobacco Use Status: Current everyday Tobacco user Tobacco use type: Cigarette Years Smoked: (onset 8yo, 1ppd x 60yrs, 50pyh) e-Cigarette/Vaping Use: Never Used Second Hand Smoke Exposure: Yes service: No Current occupational status: retired Cognitive needs: No Hearing needs: No Vision needs: Yes Assessment & Plan Assessment & Plan (1) Nicotine dependence, cigarettes, uncomplicated: Comment: (current smoker - onset 8yo, 1ppd x 60yrs, 50pyh) Code(s): F17.210 - Nicotine dependence, cigarettes, uncomplicated Category: Medical Plan: - SDM visit completed today in office. - Patient meets criteria for LDCT for lung cancer screening purposes and is asymptomatic. - Smoking cessation counseling offered. Patients can always call [phone]. - Will arrange for a LDCT scan of the chest for screening purposes at [facility]. - Risks, benefits, and alternatives were discussed in detail and the patient agrees to proceed. - Risks discussed include but are not limited to: radiation exposure, anxiety during testing and while awaiting results, false negatives, false positives and possibility of additional intervention such as further imaging or surgical procedures for benign disease. - Benefits are obviously detection of lung cancer at an early stage which can lead to improved outcomes. - Discussed the importance of screening program compliance with adherence to yearly LDCT scan as scheduled - or sooner interval scans for personalized screening regimen. - Discussed follow up plan. Our office will send a letter discussing results and if needed set up phone call and office visit based on CT findings. - Patient educated on results categorization and the management decisions for suspicious findings potentially found on the screening LDCT scan. Any patient with a Lung RADS score of 3 or 4 will be reviewed by a multidisciplinary team at [facility] to form a plan of action in regards to scan findings. - If further work up is warranted for a suspicious lung finding this will be followed by the Lung Cancer Screening program in conjunction with the Thoracic Surgery Department at [facility]. - A copy of the office note and LDCT will be sent to the patient's PCP - as well as documentation on any associated further plans of care. - Incidental findings on LDCT are the PCP's responsibility. These findings are indicated with an S finding on the LDCT Assessment. A note discussing the findings will be sent to the PCP who is then responsible for further management. - All questions answered.? Coding Level of Care Code Lung Cancer Screening G0296 Diagnoses Nicotine dependence, cigarettes, uncomplicated F17.210
== END 2024-04-13 10:44 | disposition home or self-care (01) ==
PROVIDERS: PCP Internal Medicine; Referring Provider Internal Medicine; Visit Provider Physician Assistant Medical
DX: F17.210 Nicotine dependence, cigarettes, uncomplicated (principal)
CPT/HCPCS: G0296

== ENCOUNTER 2024-04-13 10:28 | Outpatient (REF) | payer MEDICARE, OTHER, SELFPAY ==
--- NOTE | ~2024-04-13 | CT_ITS ---
EXAMINATION: CT LUNG SCREENING CLINICAL INFORMATION: Nicotine dependence, cigarettes, uncomplicated. The patient is a current smoker with a 61 pack-year history of smoking. COMPARISON: Chest x-ray 04/17/2021. TECHNIQUE: Multidetector volumetric CT imaging of the chest is performed on a Siemens SOMATOM Definition scanner without contrast using low dose technique. Additional 2D coronal and sagittal reformatted images and axial 3D maximum intensity projection (MIP) images are generated on the CT workstation. This CT examination was performed using dose optimization techniques as appropriate, variously including the following: *Automated exposure control *Adjustment of mA and/or kV according to patient size (this includes techniques or standardized protocols for targeted exams where dose is matched to indication/reason for exam; i.e. extremities or head) *Use of iterative reconstruction technique TOTAL EXAM DLP: 39 mGy-cm. CTDIvol: 1.15 mGy. FINDINGS: PULMONARY NODULES: Some small pulmonary nodules are present, none larger than 3 mm. Rivera images have been saved. No suspicious pulmonary nodules. LUNGS: Lungs bilaterally symmetrically expanded. Vkau-un-nokdaqzi emphysematous changes are present. Diffuse bronchial thickening is noted. There are some areas of inspissated mucus within bronchi. No effusion or pneumothorax. Central airways patent. MEDIASTINUM: No mediastinal, hilar or axillary adenopathy or free fluid collection. CORONARY ARTERY CALCIFICATION: None visualized on this study. THYROID GLAND: Some calcifications are seen in the thyroid, without masses. CARDIOVASCULAR STRUCTURES: Aortic and heart size normal. No pericardial effusion. CHEST WALL/AXILLA: Bilateral breast prostheses are present. There is a small rupture which appears to be present on the left medially. UPPER ABDOMEN: Included portions of the solid organs in the upper abdomen unremarkable on noncontrast imaging. OSSEOUS STRUCTURES: Degenerative changes are present in the spine with mild kyphosis. CT/CT lung screening IMPRESSION: 1. No evidence of pulmonary malignancy. 2. Cisc-hh-xhimqbwd emphysema with bronchial thickening. 3. Other incidental findings as described above. 4. Lung-RADS Category S Negative. There are no clinically significant or potentially clinically significant findings not related to the lungs requiring urgent additional evaluation. ASSESSMENT: 1. Lung-RADS Category 2: Benign appearance or behavior of nodules. N/A RECOMMENDATION: Continued routine annual low-dose CT lung screening in 1 year is recommended. An order for CT CHEST LOW DOSE CANCER SCREENING ([id number]) can be placed.
== END 2024-04-13 10:29 | disposition home or self-care (01) ==
LOC: HO.CT 10:28
PROVIDERS: Visit Provider Physician Assistant Medical
DX: Z12.2 Encounter for screening for malignant neoplasm of respiratory organs (principal); F17.210 Nicotine dependence, cigarettes, uncomplicated
CPT/HCPCS: 71271; G0296

== ENCOUNTER 2024-04-30 09:00 | Outpatient (AMB) | payer MEDICARE, OTHER, SELFPAY ==
--- NOTE | 2024-04-30 09:01 | A.OFFVIS_ITS ---
Vital Signs 04/30/24 09:09 Height 5 ft 5 in Weight 119 lb BMI 19.8 BP 178/94 H Blood Pressure Location Rt brachial Position Sitting Pulse 105 H Pulse Source Pulse Oximeter Pulse Oximetry (%) 98 Oxygen Delivery Method Room Air Intake Visit Reasons: PILL COUNT Intake Note: Katerina comes in today for a pill count to oxycodone, patient should have 0 tablets and presents with 5 tablets which she last took today 04/30/24 at 5am. Pain today 3/10. Dietary Cook Required: No Accompanied by: Self / Same As Patient Allergies Edodvqo-JZX-MiJ Reductase Inhibitor Allergy (Intermediate, Verified 04/30/24 09:09) elevated liver enzymes HPI Comments Details: Patient presents today for a pill count. Patient is supposed to have #0 pills, in her possession has #5 pills. This demonstrates a responsible attitude in regards to the medication regimen. Patient reports adequate analgesia on her regimen of oxycodone 5 mg QID prn without noted side effects. She rates her pain 3/10 today. Denies any fever, chills, constipation, nausea, sedation, dizziness, or urinary retention. Patient states she has an increased ability to perform activities of daily living, interact socially and be more functional. Patient reports she had her initial Pulmonary evaluation last month for lung cancer screening and has pending results for low dose CT lung scan. She denies any other significant changes in her medical history, medications or recent ho spitalizations. PRIOR: Patient is a 68 years old female with history of chronic pain syndrome, 3 herniated cervical discs, scoliosis, lumbar spondylosis, deteriorating lumbar spine, possible nerve damage from pelvic surgery in 2020, fibromyalgia, arthritis, chronic fatigue, pancreatic pre-cancerous mass (followed at [facility] and [facility]), thyroid nodules (2 biopsies at [facility] 2022, both benign), right nose basal cell carcinoma (was offered a replacement cartilage from the ear-patient declined), depression presents today to discuss medical pain management. Patient reports history of a fall that herniated 3 cervical discs and was offered immediate surgery which patient declined. She was started on tramadol with advanced dose to 100 mg QID. By 2012, her neck and shoulder pain became unbearable and she was referred to Dr. Matt at [facility] and was deemed non-surgical and was offered physical therapy. During COVID outbreak in 2019, patient states her script for Tramadol was cancelled due to her missing a physical exam visit. She started cannabis use and trialled oxycodone 5 mg one tab per day without relief prescribed by her PCP. She notes opioid medication in the past for 15 years allowed her to be less symptomatic and more functional. Patient reports chronic neck and shoulder pain as well as lower back pain extending to her hips (left>right), buttocks and lower legs significantly affect her daily activities, functioning, mobility, sleep, mood, social and interactions. Any physical activity intensifies her pain which is worst at 1600 with pain rated at 8/10 and least severe around 0400 rated at 6/10. Patient has retired from [employer] in 2001 due to severe low back pain and fatigue. Denies any fever, bladder or bowel dysfunction, or saddle anesthesia. Patient is interested in interventional and medical management to manage her chronic pain generators. Patient denies alcohol or illicit drug use. Consumes 2-3 cups of coffee daily. She continues to take edible marijuana grown at home and smokes 1 PPD for past 60 years. Patient is interested in lung cancer screening and will be referred to our Pulmonary services. Patient reports good social support, has 8 siblings and states her depression has been well controlled on trazadone and lorazepam prn. She has also tried Celexa, Paxil, Wellbutrin and amitriptyline in the past. Patient used to follow [facility] in 2001 for depression. She denies following Mental support at this time and states she has close contact with her family who have been very supportive to her. Patient reports uncontrolled daily and constant significant pain has negatively affected her depressive states. Denies any suicidal ideation or hallucinations. Location: Lower back radiates to buttocks, hips, legs; neck, bilateral shoulders Duration: Chronic pain for many years, worsening since 2020 Characteristics of symptom or complaint: Pulsing, throbbing, pinching, aching, wrenching, stabbing,sharp, burning Aggravating or associated factors: Any movement, walking, standing, sitting, Relieving factors: Previously-Oxycodone, Tramadol; now-cannabis edible Treatment: PT for neck and shoulder, massage therapy [facility] Medical History Pancreatic cancer Basal cell carcinoma Hypertension Opiate analgesic contract exists Benzodiazepine dependence Chronic pain syndrome Degenerative disc disease, cervical Cervical disc herniation Nicotine dependence, cigarettes, uncomplicated Depression H/O pelvic mass Surgical History History of basal cell carcinoma excision History of pelvic surgery History of hysterectomy Family History Maternal Grandfather Lung cancer, Onset Age: 67 Social History Housing: House Alcohol intake: current Alcohol intake frequency: holidays/special occasions only Patient Tobacco Use Status: Current everyday Tobacco user Tobacco use type: Cigarette Years Smoked: (onset 8yo, 1ppd x 60yrs, 50pyh) e-Cigarette/Vaping Use: Never Used Second Hand Smoke Exposure: Yes service: No Current occupational status: retired Cognitive needs: No Hearing needs: No Vision needs: Yes Review of Systems Const All systems reviewed & are unremarkable except as noted in HPI and below Reports as per HPI, Denies body aches, Denies chills, Denies difficulty sleeping, Reports fatigue (chronic), Denies fever(s), Denies frequent falls, Denies lethargy, Denies malaise, Denies night sweats, Denies poor appetite, Denies weakness and Denies weight loss Card Denies chest pain, Denies chest pain with activity, Denies irregular heart rhythm, Denies lightheadedness, Denies palpitations and Denies dyspnea on exertion Resp Denies cough, Denies pain on inspiration and Denies dyspnea on exertion Neuro Denies frequent falls and Denies weakness Endo Reports fatigue (chronic) and Denies palpitations Physical Exam General: Appears afebrile. Alert and oriented. Mood and affect appropriate. Follows and participates in conversation appropriately. Respiratory effort is unlabored. No cough. Able to transition from sit to stand unassisted. Ambulates with bilaterally normal heel strike and toe off. Extrem General: Yes capillary refill normal, Yes no clubbing, cyanosis or edema and Yes no calf tenderness Psych Appearance: grossly normal Mental Status: mental status grossly normal Speech and movement: Normal speech and movement present Affect: normal affect Attitude: cooperative Thought process: Normal thought process present Thought content: Normal thought content present, suicidality, no hallucinations and Depressive thoughts present Insight: Good insight present (Psych) Judgement: Good judgement present (Psych) Results Reviewed Results Reviewed: No imaging results are available for review today. 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 There is no evidence of misuse, abuse or diversion at this time. [employer]Pat reviewed. Script sent today for oxycodone 5 mg QID prn for moderate-severe pain. Continue to monitor for any side effects. Discussed with the patient the risks associated with benzodiazepine and opioid use. She is aware and verbalized an agreement to take the medications at least two hours apart. Patient has Narcan at home. All questions and concerns have been answered and patient agreed with the plan. Follow up in 4 weeks and sooner as needed. Medications: Refilled oxycodone Partial Fill upon patient request. 5 mg PO QID 30 days PRN 120 tabs 0RF pain G89.4 - Chronic pain syndrome, M47.817 - Spondylosis without myelopathy or radiculopathy, lumbosacral region, M50.30 - Other cervical disc degeneration, unspecified cervical region, Z79.891 - FPC (current) use of opiate analgesic Coding Level of Care Code Est Pt Level 4 (94385) Diagnoses Lumbosacral spondylosis M47.817 Chronic pain syndrome G89.4 Degenerative disc disease, cervical M50.30 Fibromyalgia M79.7 Opiate analgesic contract exists Z79.891
[2024-04-30 09:09] VITALS: BP 178/94; PULSE 105; O2SAT 98; BMI 19.8
== END 2024-04-30 09:24 | disposition home or self-care (01) ==
PROVIDERS: PCP Internal Medicine; Visit Provider Nurse Practitioner Family
DX: G89.4 Chronic pain syndrome (principal); M47.817 Spondylosis without myelopathy or radiculopathy, lumbosacral region; M50.30 Other cervical disc degeneration, unspecified cervical region; Z79.891 Long term (current) use of opiate analgesic; M79.7 Fibromyalgia
CPT/HCPCS: 99214

== ENCOUNTER → 2024-04-30 09:00 | Outpatient (BNVA) | payer MEDICARE, OTHER, SELFPAY | PROVIDERS: PCP Internal Medicine; Visit Provider Nurse Practitioner Family | DX: G89.4 Chronic pain syndrome (principal); M47.817 Spondylosis without myelopathy or radiculopathy, lumbosacral region; M50.30 Other cervical disc degeneration, unspecified cervical region; M79.7 Fibromyalgia; Z79.891 Long term (current) use of opiate analgesic | CPT/HCPCS: 99212 ==

== ENCOUNTER 2024-05-28 09:10 | Outpatient (AMB) | payer MEDICARE, OTHER, SELFPAY ==
--- NOTE | 2024-05-28 09:22 | MHC.OFFVIS ---
Vital Signs 05/28/24 09:28 Height 5 ft 5 in Weight 117 lb 6 oz BMI 19.5 BP 159/76 H Blood Pressure Location Rt brachial Position Sitting Pulse 104 H Pulse Source Pulse Oximeter Pulse Oximetry (%) 97 Oxygen Delivery Method Room Air Intake Visit Reasons: PILL COUNT Intake Note: Katerina comes in today for a pill count to oxycodone, patient should have 8 tablets and presents with 13 tablets which she last took today 05/28/24 at 5am. 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 Patient is supposed to have #8 pills, in her possession has #13 pills. This demonstrates a responsible attitude in regards to the medication regimen. Patient reports adequate analgesia on her regimen of oxycodone 5 mg QID prn without noted side effects. She rates her pain 3/10 today. Denies any fever, chills, constipation, nausea, sedation, dizziness, or urinary retention. Patient states she has an increased ability to perform activities of daily living, interact socially and be more functional. Denies any other significant changes in her medical history, medications or recent hospitalizations. PRIOR: Patient is a 68 years old female with history of chronic pain syndrome, 3 herniated cervical discs, scoliosis, lumbar spondylosis, deteriorating lumbar spine, possible nerve damage from pelvic surgery in 2020, fibromyalgia, arthritis, chronic fatigue, pancreatic pre-cancerous mass (followed at [facility] and [facility]), thyroid nodules (2 biopsies at [facility] 2022, both benign), right nose basal cell carcinoma (was offered a replacement cartilage from the ear-patient declined), depression presents today to discuss medical pain management. Patient reports history of a fall that herniated 3 cervical discs and was offered immediate surgery which patient declined. She was started on tramadol with advanced dose to 100 mg QID. By 2012, her neck and shoulder pain became unbearable and she was referred to Dr. Matt at [facility] and was deemed non-surgical and was offered physical therapy. During COVID outbreak in 2019, patient states her script for Tramadol was cancelled due to her missing a physical exam visit. She started cannabis use and trialled oxycodone 5 mg one tab per day without relief prescribed by her PCP. She notes opioid medication in the past for 15 years allowed her to be less symptomatic and more functional. Patient reports chronic neck and shoulder pain as well as lower back pain extending to her hips (left>right), buttocks and lower legs significantly affect her daily activities, functioning, mobility, sleep, mood, social and interactions. Any physical activity intensifies her pain which is worst at 1600 with pain rated at 8/10 and least severe around 0400 rated at 6/10. Patient has retired from [employer] in 2001 due to severe low back pain and fatigue. Denies any fever, bladder or bowel dysfunction, or saddle anesthesia. Patient is interested in interventional and medical management to manage her chronic pain generators. Patient denies alcohol or illicit drug use. Consumes 2-3 cups of coffee daily. She continues to take edible marijuana grown at home and smokes 1 PPD for past 60 years. Patient is interested in lung cancer screening and will be referred to our Pulmonary services. Patient reports good social support, has 8 siblings and states her depression has been well controlled on trazadone and lorazepam prn. She has also tried Celexa, Paxil, Wellbutrin and amitriptyline in the past. Patient used to follow [facility] in 2001 for depression. She denies following Mental support at this time and states she has close contact with her family who have been very supportive to her. Patient reports uncontrolled daily and constant significant pain has negatively affected her depressive states. Denies any suicidal ideation or hallucinations. Location: Lower back radiates to buttocks, hips, legs; neck, bilateral shoulders Duration: Chronic pain for many years, worsening since 2020 Characteristics of symptom or complaint: Pulsing, throbbing, pinching, aching, wrenching, stabbing,sharp, burning Aggravating or associated factors: Any movement, walking, standing, sitting, Relieving factors: Previously-Oxycodone, Tramadol; now-cannabis edible Treatment: PT for neck and shoulder, massage therapy [facility] Medical History Pancreatic cancer Basal cell carcinoma Hypertension Opiate analgesic contract exists Benzodiazepine dependence Chronic pain syndrome Degenerative disc disease, cervical Cervical disc herniation Nicotine dependence, cigarettes, uncomplicated Depression H/O pelvic mass Surgical History History of basal cell carcinoma excision History of pelvic surgery History of hysterectomy Family History Maternal Grandfather Lung cancer, Onset Age: 67 Social History Housing: House Alcohol intake: current Alcohol intake frequency: holidays/special occasions only Patient Tobacco Use Status: Current everyday Tobacco user Tobacco use type: Cigarette Years Smoked: (onset 8yo, 1ppd x 60yrs, 50pyh) e-Cigarette/Vaping Use: Never Used Second Hand Smoke Exposure: Yes service: No Current occupational status: retired Cognitive needs: No Hearing needs: No Vision needs: Yes Review of Systems Const All systems reviewed & are unremarkable except as noted in HPI and below Physical Exam Vital Signs: Last Vital Signs Pulse 104 H 05/28/24 09:28 BP 159/76 H 05/28/24 09:28 Pulse Ox 97 05/28/24 09:28 Oxygen Delivery Method Room Air 05/28/24 09:28 BMI result Body Mass Index 19.5 General: Appears afebrile. Alert and oriented. Mood and affect appropriate. Follows and participates in conversation appropriately. Respiratory effort is unlabored. No cough. Able to transition from sit to stand unassisted. Ambulates with bilaterally normal heel strike and toe off. Psych Appearance: grossly normal Mental Status: mental status grossly normal Speech and movement: Normal speech and movement present Affect: normal affect Attitude: cooperative Thought process: Normal thought process present Thought content: Normal thought content present, suicidality, no hallucinations and Depressive thoughts present Insight: Good insight present (Psych) Judgement: Good judgement present (Psych) Results Reviewed Results Reviewed: MR CERVICAL SPINE WITHOUT CONTRAST 08/06/22 CLINICAL INFORMATION: 66-year-old with self-reported neck and bilateral shoulder pain and headaches. Cervical disc displacement. COMPARISON: 11/14/2012 MRI TECHNIQUE: MRI of the cervical spine was obtained using routine sequences without contrast. FINDINGS: Alignment: There is 2 mm of anterolisthesis at C3-C4 since the previous exam. There is 2 mm of retrolisthesis at C4-C5, stable in appearance. Otherwise normal alignment unchanged in appearance. Craniocervical Junction/C1-C2 Articulations: Intact and aligned. Visualized Intracranial Structures: Within normal limits. Vertebral Bodies: Normal height. Disc Spaces and Endplates: Severe disc space height loss at C4-C5 with Schmorl's nodes, disc desiccation and spondylosis similar to the previous exam. Mild disc space height loss at C3-C4, stable in appearance. Tvgsmrxt-uj-wurdjz disc space height loss at C5-C6 and C6-C7 with disc desiccation, tiny Schmorl's nodes and mild degrees of spondylosis, stable in appearance. Bone Marrow: Minor type I degenerative marrow signal changes seen along the endplates at C4-C5, C5-C6 and C6-C7 with associated type II degenerative marrow signal changes. Type II marrow signal change seen most prominently at C4-C5, stable in appearance. No suspicious marrow replacing process or other bone marrow edema. C2-C3: Mild posterior disc osteophyte complex asymmetric to the right, stable in appearance with slight flattening of the dural sac on the right, unchanged, without cord impingement or canal stenosis. There is uncovertebral and facet arthrosis bilaterally, with progression of facet arthrosis on the left. There is moderate right and mild left-sided neural foraminal stenosis, progressed on the left and stable on the right. C3-C4: Broad-based central disc protrusion similar to previous study with mild flattening of the central dural sac with trace anterolisthesis at this level on the current exam without cord impingement or canal stenosis. There is uncovertebral spurring, left more than right, with mild right and severe left-sided facet arthrosis, progressed on the left. There is myxyxnfs-jl-jtfdsa left-sided and mild right-sided neural foraminal stenosis, largely unchanged. C4-C5: Mild retrolisthesis, with broad-based posterior disc osteophyte complex and a superimposed central disc herniation similar to the previous exam, with [id number]-[id number] ventral cord impingement centrally with AP cord caliber of 5 mm, stable in appearance. There is associated moderate central spinal canal stenosis, stable in appearance. There is uncovertebral spurring and facet arthrosis bilaterally similar to the previous exam, with nvrbnqro-kr-modskh left-sided and bzsx-dt-zylsflge right-sided neural foraminal stenosis, stable in appearance. C5-C6: Broad-based disc osteophyte complex noted asymmetric to the right, similar to the previous exam, with effacement of the dural sac on the right without cord compression, stable in appearance. Mild central canal stenosis is stable. Bilateral uncovertebral spurring and facet arthropathy is similar to the previous exam with xytiunpj-sx-naswvf bilateral neural foraminal stenosis, stable in appearance. There is probable encroachment on the ventral root of C6 on the right, unchanged. C6-C7: Broad-based disc osteophyte complex with mild flattening of the ventral dural sac, stable in appearance, without cord impingement or canal stenosis. Bilateral uncovertebral spurring is again noted with mild right and moderate left-sided neural foraminal stenosis, stable in appearance. C7-T1: Small central to right paramedian disc osteophyte complex, stable in appearance, without significant facet arthrosis, canal or neuroforaminal stenosis. T1-T2: No disc herniation or canal stenosis. No significant DJD or neuroforaminal stenosis. Small perineural cysts noted bilaterally, stable in appearance. Spinal Cord: The cervical and visualized upper thoracic spinal cord is normal in signal intensity throughout, without focal lesion, edema or syrinx. Probable chronic spinal cord volume loss at C4-C5, unchanged. Extracranial Soft Tissues: 1.8 cm left thyroid lobe nodule is noted. Recommend follow-up thyroid ultrasound otherwise the visualized extraspinal soft tissues are grossly unremarkable in appearance. IMPRESSION: 1. Mild anterolisthesis at C3-C4 since the previous exam and mild retrolisthesis at C4-C5 stable in appearance. 2. Multilevel DDD and spondylosis largely stable in appearance with multilevel disc osteophyte complexes and disc herniations as described above largely similar in appearance to the previous exam with moderate central spinal canal stenosis at C4-C5 and mild central canal stenosis at C5-C6 stable in appearance. Qhaj-wp-nljpfcby ventral cord impingement at C4-C5 is stable with probable chronic spinal cord volume loss at this level unchanged. 3. Multilevel DJD as described above with progression of facet arthrosis on the left at C3-C4. Multilevel bilateral neural foraminal stenosis is largely stable in appearance as detailed by level above. 4. 1.8 cm left thyroid lobe nodule. Recommend follow-up thyroid ultrasound. Assessment & Plan Assessment & Plan (1) Lumbosacral spondylosis: Code(s): M47.817 - Spondylosis without myelopathy or radiculopathy, lumbosacral region Category: Medical (2) Chronic pain syndrome: Code(s): G89.4 - Chronic pain syndrome Category: Medical (3) Degenerative disc disease, cervical: Code(s): M50.30 - Other cervical disc degeneration, unspecified cervical region Category: Medical (4) Fibromyalgia: Code(s): M79.7 - Fibromyalgia Category: Medical (5) Opiate analgesic contract exists: Code(s): Z79.891 - alf (current) use of opiate analgesic Category: Medical Plan Patient has shown accountability for her medication regimen and the pill count was accurate. There is no evidence of misuse, abuse or diversion at this time. MassPat reviewed. Script sent for oxycodone 5 mg QID prn for moderate-severe pain with advanced day 05/30/2024. Continue to monitor for any side effects. Discussed with the patient the risks associated with benzodiazepine and opioid use. She is aware and verbalized an agreement to take the medications at least two hours apart. Patient has Narcan at home. All questions and concerns have been answered and patient agreed with the plan. Follow up in 4-5 weeks and sooner as needed. Medications: Refilled oxycodone Partial Fill upon patient request. 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
[2024-05-28 09:28] VITALS: BP 159/76; PULSE 104; O2SAT 97; BMI 19.5
== END 2024-05-28 09:36 | disposition home or self-care (01) ==
PROVIDERS: PCP Internal Medicine; Visit Provider Nurse Practitioner Family
DX: G89.4 Chronic pain syndrome (principal); M47.817 Spondylosis without myelopathy or radiculopathy, lumbosacral region; M50.30 Other cervical disc degeneration, unspecified cervical region; Z79.891 Long term (current) use of opiate analgesic; M79.7 Fibromyalgia
CPT/HCPCS: 99214

== ENCOUNTER → 2024-05-28 09:10 | Outpatient (BNVA) | payer MEDICARE, OTHER, SELFPAY | PROVIDERS: PCP Internal Medicine; Visit Provider Nurse Practitioner Family | DX: M48.17 Ankylosing hyperostosis [Forestier], lumbosacral region (principal); G89.4 Chronic pain syndrome; M50.30 Other cervical disc degeneration, unspecified cervical region; M79.7 Fibromyalgia; Z51.81 Encounter for therapeutic drug level monitoring; Z79.891 Long term (current) use of opiate analgesic | CPT/HCPCS: 99212 ==

== ENCOUNTER 2024-07-02 08:52 | Outpatient (AMB) | payer MEDICARE, OTHER, SELFPAY ==
--- NOTE | 2024-07-02 08:53 | A.OFFVIS_ITS ---
Vital Signs 3 07/02/24 08:59 Height 5 ft 5 in Weight 118 lb 6 oz BMI 19.7 BP 156/74 H Blood Pressure Location Rt brachial Position Sitting Pulse 74 Pulse Source Pulse Oximeter Pulse Oximetry (%) 98 Oxygen Delivery Method Room Air Intake Visit Reasons: pill count Intake Note: Katerina comes in today for a pill count to oxycodone, patient should have 108 tablets and presents with 112 which she last took today 07/02/24 at 6am. 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 Patient is supposed to have #108 pills, in her possession has #112 pills. This demonstrates a responsible attitude in regards to the medication regimen. Patient reports adequate analgesia on her regimen of oxycodone 5 mg QID prn without noted side effects. She rates her pain 3/10 today. Denies any fever, chills, constipation, nausea, sedation, dizziness, or urinary retention. Patient states she has an increased ability to perform activities of daily living, interact socially and be more functional. Denies any other significant changes in her medical history, medications or recent hospitalizations. Patient was congratulated on quitting smoking on 06/24/24. She reports recent lung CT scan showed mild to moderate emphysema and she wants to avoid future complications especially oxygen dependance. Concern for today is progressively worsening and increasing right nose basal cell carcinoma. Patient reports last evaluation at OR Dermatology over 10 years ago. She agreed today for Dermatology re-evaluation. PRIOR: Patient is a 68 years old female with history of chronic pain syndrome, 3 herniated cervical discs, scoliosis, lumbar spondylosis, deteriorating lumbar spine, possible nerve damage from pelvic surgery in 2020, fibromyalgia, arthritis, chronic fatigue, pancreatic pre-cancerous mass (followed at [facility] and [facility]), thyroid nodules (2 biopsies at [facility] 2022, both benign), right nose basal cell carcinoma (was offered a replacement cartilage from the ear-patient declined), depression presents today to discuss medical pain management. Patient reports history of a fall that herniated 3 cervical discs and was offered immediate surgery which patient declined. She was started on tramadol with advanced dose to 100 mg QID. By 2012, her neck and shoulder pain became unbearable and she was referred to Dr. Matt at [facility] and was deemed non-surgical and was offered physical therapy. During COVID outbreak in 2019, patient states her script for Tramadol was cancelled due to her missing a physical exam visit. She started cannabis use and trialled oxycodone 5 mg one tab per day without relief prescribed by her PCP. She notes opioid medication in the past for 15 years allowed her to be less symptomatic and more functional. Patient reports chronic neck and shoulder pain as well as lower back pain extending to her hips (left>right), buttocks and lower legs significantly affect her daily activities, functioning, mobility, sleep, mood, social and interactions. Any physical activity intensifies her pain which is worst at 1600 with pain rated at 8/10 and least severe around 0400 rated at 6/10. Patient has retired from [employer] in 2001 due to severe low back pain and fatigue. Denies any fever, bladder or bowel dysfunction, or saddle anesthesia. Patient is interested in interventional and medical management to manage her chronic pain generators. Patient denies alcohol or illicit drug use. Consumes 2-3 cups of coffee daily. She continues to take edible marijuana grown at home and smokes 1 PPD for past 60 years. Patient is interested in lung cancer screening and will be referred to our Pulmonary services. Patient reports good social support, has 8 siblings and states her depression has been well controlled on trazadone and lorazepam prn. She has also tried Celexa, Paxil, Wellbutrin and amitriptyline in the past. Patient used to follow [facility] in 2001 for depression. She denies following Mental support at this time and states she has close contact with her family who have been very supportive to her. Patient reports uncontrolled daily and constant significant pain has negatively affected her depressive states. Denies any suicidal ideation or hallucinations. Location: Lower back radiates to buttocks, hips, legs; neck, bilateral shoulders Duration: Chronic pain for many years, worsening since 2020 Characteristics of symptom or complaint: Pulsing, throbbing, pinching, aching, wrenching, stabbing,sharp, burning Aggravating or associated factors: Any movement, walking, standing, sitting, Relieving factors: Previously-Oxycodone, Tramadol; now-cannabis edible Treatment: PT for neck and shoulder, massage therapy [facility] Medical History Pancreatic cancer Basal cell carcinoma Hypertension Opiate analgesic contract exists Benzodiazepine dependence Chronic pain syndrome Degenerative disc disease, cervical Cervical disc herniation Nicotine dependence, cigarettes, uncomplicated Depression H/O pelvic mass Surgical History History of basal cell carcinoma excision History of pelvic surgery History of hysterectomy Family History Maternal Grandfather Lung cancer, Onset Age: 67 Social History Housing: House Alcohol intake: current Alcohol intake frequency: holidays/special occasions only Patient Tobacco Use Status: Former Tobacco user Tobacco use type: Cigarette Years Smoked: (onset 8yo, 1ppd x 60yrs, 50pyh) e-Cigarette/Vaping Use: Never Used Second Hand Smoke Exposure: Yes service: No Current occupational status: retired Cognitive needs: No Hearing needs: No Vision needs: Yes Review of Systems Const All systems reviewed & are unremarkable except as noted in HPI and below Physical Exam Vital Signs: Last Vital Signs Pulse 74 07/02/24 08:59 BP 156/74 H 07/02/24 08:59 Pulse Ox 98 07/02/24 08:59 Oxygen Delivery Method Room Air 07/02/24 08:59 BMI result Body Mass Index 19.7 General: Appears afebrile. Alert and oriented. Mood and affect appropriate. Follows and participates in conversation appropriately. Respiratory effort is unlabored. No cough. Able to transition from sit to stand unassisted. Ambulates with bilaterally normal heel strike and toe off. Skin Other: Basal cell carcinoma-right nose Psych Appearance: grossly normal Mental Status: mental status grossly normal Speech and movement: Normal speech and movement present Affect: normal affect Attitude: cooperative Thought process: Normal thought process present Thought content: Normal thought content present, suicidality, no hallucinations and Depressive thoughts present Insight: Good insight present (Psych) Judgement: Good judgement present (Psych) Results Reviewed Results Reviewed: MR CERVICAL SPINE WITHOUT CONTRAST 08/06/22 CLINICAL INFORMATION: 66-year-old with self-reported neck and bilateral shoulder pain and headaches. Cervical disc displacement. COMPARISON: 11/14/2012 MRI TECHNIQUE: MRI of the cervical spine was obtained using routine sequences without contrast. FINDINGS: Alignment: There is 2 mm of anterolisthesis at C3-C4 since the previous exam. There is 2 mm of retrolisthesis at C4-C5, stable in appearance. Otherwise normal alignment unchanged in appearance. Craniocervical Junction/C1-C2 Articulations: Intact and aligned. Visualized Intracranial Structures: Within normal limits. Vertebral Bodies: Normal height. Disc Spaces and Endplates: Severe disc space height loss at C4-C5 with Schmorl's nodes, disc desiccation and spondylosis similar to the previous exam. Mild disc space height loss at C3-C4, stable in appearance. Cdzswkhw-za-hhcrha disc space height loss at C5-C6 and C6-C7 with disc desiccation, tiny Schmorl's nodes and mild degrees of spondylosis, stable in appearance. Bone Marrow: Minor type I degenerative marrow signal changes seen along the endplates at C4-C5, C5-C6 and C6-C7 with associated type II degenerative marrow signal changes. Type II marrow signal change seen most prominently at C4-C5, stable in appearance. No suspicious marrow replacing process or other bone marrow edema. C2-C3: Mild posterior disc osteophyte complex asymmetric to the right, stable in appearance with slight flattening of the dural sac on the right, unchanged, without cord impingement or canal stenosis. There is uncovertebral and facet arthrosis bilaterally, with progression of facet arthrosis on the left. There is moderate right and mild left-sided neural foraminal stenosis, progressed on the left and stable on the right. C3-C4: Broad-based central disc protrusion similar to previous study with mild flattening of the central dural sac with trace anterolisthesis at this level on the current exam without cord impingement or canal stenosis. There is uncovertebral spurring, left more than right, with mild right and severe left-sided facet arthrosis, progressed on the left. There is chdoccyr-he-ngamxt left-sided and mild right-sided neural foraminal stenosis, largely unchanged. C4-C5: Mild retrolisthesis, with broad-based posterior disc osteophyte complex and a superimposed central disc herniation similar to the previous exam, with xmaf-ug-qbulqsyf ventral cord impingement centrally with AP cord caliber of 5 mm, stable in appearance. There is associated moderate central spinal canal stenosis, stable in appearance. There is uncovertebral spurring and facet arthrosis bilaterally similar to the previous exam, with kcvpfubz-jq-bhecks left-sided and orvu-ke-alppbzuq right-sided neural foraminal stenosis, stable in appearance. C5-C6: Broad-based disc osteophyte complex noted asymmetric to the right, similar to the previous exam, with effacement of the dural sac on the right without cord compression, stable in appearance. Mild central canal stenosis is stable. Bilateral uncovertebral spurring and facet arthropathy is similar to the previous exam with lrhoeoun-qk-jhiuwl bilateral neural foraminal stenosis, stable in appearance. There is probable encroachment on the ventral root of C6 on the right, unchanged. C6-C7: Broad-based disc osteophyte complex with mild flattening of the ventral dural sac, stable in appearance, without cord impingement or canal stenosis. Bilateral uncovertebral spurring is again noted with mild right and moderate left-sided neural foraminal stenosis, stable in appearance. C7-T1: Small central to right paramedian disc osteophyte complex, stable in appearance, without significant facet arthrosis, canal or neuroforaminal stenosis. T1-T2: No disc herniation or canal stenosis. No significant DJD or neuroforaminal stenosis. Small perineural cysts noted bilaterally, stable in appearance. Spinal Cord: The cervical and visualized upper thoracic spinal cord is normal in signal intensity throughout, without focal lesion, edema or syrinx. Probable chronic spinal cord volume loss at C4-C5, unchanged. Extracranial Soft Tissues: 1.8 cm left thyroid lobe nodule is noted. Recommend follow-up thyroid ultrasound otherwise the visualized extraspinal soft tissues are grossly unremarkable in appearance. IMPRESSION: 1. Mild anterolisthesis at C3-C4 since the previous exam and mild retrolisthesis at C4-C5 stable in appearance. 2. Multilevel DDD and spondylosis largely stable in appearance with multilevel disc osteophyte complexes and disc herniations as described above largely similar in appearance to the previous exam with moderate central spinal canal stenosis at C4-C5 and mild central canal stenosis at C5-C6 stable in appearance. Uksm-eq-eusoxyhm ventral cord impingement at C4-C5 is stable with probable chronic spinal cord volume loss at this level unchanged. 3. Multilevel DJD as described above with progression of facet arthrosis on the left at C3-C4. Multilevel bilateral neural foraminal stenosis is largely stable in appearance as detailed by level above. 4. 1.8 cm left thyroid lobe nodule. Recommend follow-up thyroid ultrasound. CT lung screening 04/13/24 IMPRESSION: 1. No evidence of pulmonary malignancy. 2. Wfel-xq-bdjhawmu emphysema with bronchial thickening. 3. Other incidental findings as described above. 4. Lung-RADS Category S Negative. There are no clinically significant or potentially clinically significant findings not related to the lungs requiring urgent additional evaluation. Assessment & Plan Assessment & Plan (1) Basal cell carcinoma: Code(s): C44.91 - Basal cell carcinoma of skin, unspecified Category: Medical (2) Lumbosacral spondylosis: Code(s): M47.817 - Spondylosis without myelopathy or radiculopathy, lumbosacral region Category: Medical (3) Chronic pain syndrome: Code(s): G89.4 - Chronic pain syndrome Category: Medical (4) Degenerative disc disease, cervical: Code(s): M50.30 - Other cervical disc degeneration, unspecified cervical region Category: Medical (5) Fibromyalgia: Code(s): M79.7 - Fibromyalgia Category: Medical (6) Opiate analgesic contract exists: Code(s): 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 There is no evidence of misuse, abuse or diversion at this time. [employer] reviewed. Script sent for oxycodone 5 mg QID prn for moderate-severe pain with advanced day 07/28/2403/16/2024. Continue to monitor for any side effects. Discussed with the patient the risks associated with benzodiazepine and opioid use. She is aware and verbalized an agreement to take the medications at least two hours apart. Patient has Narcan at home. Patient was strongly encouraged today to follow up with Dermatology for re- evaluation for worsening and increasing right nose basal cell carcinoma. Patient requests provider in [facility]. Referral placed today. All questions and concerns have been answered and patient agreed with the plan. Follow up in 4-5 weeks and sooner as needed. Orders: Referrals 2 Dermatology Referral C44.91 - Basal cell carcinoma of skin, unspecified, L98.9 - Disorder of the skin and subcutaneous tissue, unspecified Medications: Refilled 2 oxycodone Partial Fill upon patient request. 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
[2024-07-02 08:59] VITALS: BP 156/74; PULSE 74; O2SAT 98; BMI 19.7
== END 2024-07-02 09:11 | disposition home or self-care (01) ==
PROVIDERS: PCP Internal Medicine; Visit Provider Nurse Practitioner Family
DX: C44.91 Basal cell carcinoma of skin, unspecified (principal); M47.817 Spondylosis without myelopathy or radiculopathy, lumbosacral region; G89.4 Chronic pain syndrome; M50.30 Other cervical disc degeneration, unspecified cervical region; M79.7 Fibromyalgia; Z79.891 Long term (current) use of opiate analgesic; L98.9 Disorder of the skin and subcutaneous tissue, unspecified
CPT/HCPCS: 99214; G2211

== ENCOUNTER → 2024-07-02 08:52 | Outpatient (BNVA) | payer MEDICARE, OTHER, SELFPAY | PROVIDERS: PCP Internal Medicine; Visit Provider Nurse Practitioner Family | DX: M47.817 Spondylosis without myelopathy or radiculopathy, lumbosacral region (principal); C44.91 Basal cell carcinoma of skin, unspecified; G89.4 Chronic pain syndrome; M50.30 Other cervical disc degeneration, unspecified cervical region; M79.7 Fibromyalgia; L98.9 Disorder of the skin and subcutaneous tissue, unspecified; Z51.81 Encounter for therapeutic drug level monitoring; Z79.891 Long term (current) use of opiate analgesic | CPT/HCPCS: 99212 ==

== ENCOUNTER 2024-07-30 08:52 | Outpatient (AMB) | payer MEDICARE, OTHER, SELFPAY ==
--- NOTE | 2024-07-30 09:00 | A.OFFVIS_ITS ---
Vital Signs 3 07/30/24 09:07 Height 5 ft 5 in Weight 116 lb 4 oz BMI 19.3 BP 161/85 H Blood Pressure Location Rt brachial Position Sitting Pulse 101 H Pulse Source Pulse Oximeter Pulse Oximetry (%) 99 Oxygen Delivery Method Room Air Intake Visit Reasons: Pill Count Intake Note: Katerina comes in today for a pill count to oxycodone, patient should have 112 tablets and presents with 114 which she last took two tabs at 5:30 am today 07/30/24. 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 Patient is supposed to have #108 pills, in her possession has #112 pills. This demonstrates a responsible attitude in regards to the medication regimen. Patient reports adequate analgesia on her regimen of oxycodone 5 mg QID prn without noted side effects. She rates her pain 4/10 today. Denies any fever, chills, constipation, nausea, sedation, dizziness, or urinary retention. Patient states she has an increased ability to perform activities of daily living, interact socially and be more functional. Denies any other significant changes in her medical history, medications or recent hospitalizations. Patient has pending Dermatology evaluation for right nose basal cell carcinoma. Patient reports last evaluation at [facility] over 10 years ago. Patient also presented sad and tearful today as she is grieving passing of her 96 years old mother on 07/20/24 who lived with dementia for the past 3 years of her life. Patient reports her mom lived a good life but saddened by her passing. Patient reports good social and family support at this difficult time for her family. She has recently restarted lorazepam and has been taking it at least 2 hours apart from oxycodone. PRIOR: Patient is a 68 years old female with history of chronic pain syndrome, 3 herniated cervical discs, scoliosis, lumbar spondylosis, deteriorating lumbar spine, possible nerve damage from pelvic surgery in 2020, fibromyalgia, arthritis, chronic fatigue, pancreatic pre-cancerous mass (follow[facility] at [facility] and [facility]), thyroid nodules (2 biopsies at [facility] 2022, both benign), right nose basal cell carcinoma (was offered a replacement cartilage from the ear-patient declined), depression presents today to discuss medical pain management. Patient reports history of a fall that herniated 3 cervical discs and was offered immediate surgery which patient declined. She was started on tramadol with advanced dose to 100 mg QID. By 2012, her neck and shoulder pain became unbearable and she was referred to Dr. Matt at [facility] and was deemed non-surgical and was offered physical therapy. During COVID outbreak in 2019, patient states her script for Tramadol was cancelled due to her missing a physical exam visit. She started cannabis use and trialled oxycodone 5 mg one tab per day without relief prescribed by her PCP. She notes opioid medication in the past for 15 years allowed her to be less symptomatic and more functional. Patient reports chronic neck and shoulder pain as well as lower back pain extending to her hips (left>right), buttocks and lower legs significantly affect her daily activities, functioning, mobility, sleep, mood, social and interactions. Any physical activity intensifies her pain which is worst at 1600 with pain rated at 8/10 and least severe around 0400 rated at 6/10. Patient has retired from [employer] in 2001 due to severe low back pain and fatigue. Denies any fever, bladder or bowel dysfunction, or saddle anesthesia. Patient is interested in interventional and medical management to manage her chronic pain generators. Patient denies alcohol or illicit drug use. Consumes 2-3 cups of coffee daily. She continues to take edible marijuana grown at home and smokes 1 PPD for past 60 years. Patient is interested in lung cancer screening and will be referred to our Pulmonary services. Patient reports good social support, has 8 siblings and states her depression has been well controlled on trazadone and lorazepam prn. She has also tried Celexa, Paxil, Wellbutrin and amitriptyline in the past. Patient used to follow [facility] in 2001 for depression. She denies following Mental support at this time and states she has close contact with her family who have been very supportive to her. Patient reports uncontrolled daily and constant significant pain has negatively affected her depressive states. Denies any suicidal ideation or hallucinations. Location: Lower back radiates to buttocks, hips, legs; neck, bilateral shoulders Duration: Chronic pain for many years, worsening since 2020 Characteristics of symptom or complaint: Pulsing, throbbing, pinching, aching, wrenching, stabbing,sharp, burning Aggravating or associated factors: Any movement, walking, standing, sitting, Relieving factors: Previously-Oxycodone, Tramadol; now-cannabis edible Treatment: PT for neck and shoulder, massage therapy [facility] Medical History Pancreatic cancer Basal cell carcinoma Hypertension Opiate analgesic contract exists Benzodiazepine dependence Chronic pain syndrome Degenerative disc disease, cervical Cervical disc herniation Nicotine dependence, cigarettes, uncomplicated Depression H/O pelvic mass Surgical History History of basal cell carcinoma excision History of pelvic surgery History of hysterectomy Family History Maternal Grandfather Lung cancer, Onset Age: 67 Social History (Updated 07/02/24 @ 09:12 by Julianne Torrez) Housing: House Alcohol intake: current Alcohol intake frequency: holidays/special occasions only Patient Tobacco Use Status: Former Tobacco user Tobacco use type: Cigarette Years Smoked: (onset 8yo, 1ppd x 60yrs, 50pyh) e-Cigarette/Vaping Use: Never Used Second Hand Smoke Exposure: Yes service: No Current occupational status: retired Cognitive needs: No Hearing needs: No Vision needs: Yes Review of Systems Const All systems reviewed & are unremarkable except as noted in HPI and below Physical Exam General: Appears afebrile. Alert and oriented. Mood and affect appropriate. Follows and participates in conversation appropriately. Respiratory effort is unlabored. No cough. Able to transition from sit to stand unassisted. Ambulates with bilaterally normal heel strike and toe off. Skin Other: 07/02/24 Basal cell carcinoma-right nose Psych Appearance: grossly normal and well kempt Mental Status: mental status grossly normal Speech and movement: Normal speech and movement present and Clear speech present Affect: normal affect and Sad affect present Attitude: cooperative Thought process: Normal thought process present Thought content: Normal thought content present, suicidality, no hallucinations and Depressive thoughts present Insight: Good insight present (Psych) Judgement: Good judgement present (Psych) Results Reviewed Results Reviewed: MR CERVICAL SPINE WITHOUT CONTRAST 08/06/22 CLINICAL INFORMATION: 66-year-old with self-reported neck and bilateral shoulder pain and headaches. Cervical disc displacement. COMPARISON: 11/14/2012 MRI FINDINGS: Alignment: There is 2 mm of anterolisthesis at C3-C4 since the previous exam. There is 2 mm of retrolisthesis at C4-C5, stable in appearance. Otherwise normal alignment unchanged in appearance. Craniocervical Junction/C1-C2 Articulations: Intact and aligned. Visualized Intracranial Structures: Within normal limits. Vertebral Bodies: Normal height. Disc Spaces and Endplates: Severe disc space height loss at C4-C5 with Schmorl's nodes, disc desiccation and spondylosis similar to the previous exam. Mild disc space height loss at C3-C4, stable in appearance. Ioduqqbm-bz-logeai disc space height loss at C5-C6 and C6-C7 with disc desiccation, tiny Schmorl's nodes and mild degrees of spondylosis, stable in appearance. Bone Marrow: Minor type I degenerative marrow signal changes seen along the endplates at C4-C5, C5-C6 and C6-C7 with associated type II degenerative marrow signal changes. Type II marrow signal change seen most prominently at C4-C5, stable in appearance. No suspicious marrow replacing process or other bone marrow edema. C2-C3: Mild posterior disc osteophyte complex asymmetric to the right, stable in appearance with slight flattening of the dural sac on the right, unchanged, without cord impingement or canal stenosis. There is uncovertebral and facet arthrosis bilaterally, with progression of facet arthrosis on the left. There is moderate right and mild left-sided neural foraminal stenosis, progressed on the left and stable on the right. C3-C4: Broad-based central disc protrusion similar to previous study with mild flattening of the central dural sac with trace anterolisthesis at this level on the current exam without cord impingement or canal stenosis. There is uncovertebral spurring, left more than right, with mild right and severe left-sided facet arthrosis, progressed on the left. There is xfvrgxft-tv-vzptkk left-sided and mild right-sided neural foraminal stenosis, largely unchanged. C4-C5: Mild retrolisthesis, with broad-based posterior disc osteophyte complex and a superimposed central disc herniation similar to the previous exam, with qgkk-qd-qokpjeqy ventral cord impingement centrally with AP cord caliber of 5 mm, stable in appearance. There is associated moderate central spinal canal stenosis, stable in appearance. There is uncovertebral spurring and facet arthrosis bilaterally similar to the previous exam, with uhgwdpfp-vh-afjqcx left-sided and mjoy-wu-xtqlbtdg right-sided neural foraminal stenosis, stable in appearance. C5-C6: Broad-based disc osteophyte complex noted asymmetric to the right, similar to the previous exam, with effacement of the dural sac on the right without cord compression, stable in appearance. Mild central canal stenosis is stable. Bilateral uncovertebral spurring and facet arthropathy is similar to the previous exam with zwqpvfrb-aw-llmngm bilateral neural foraminal stenosis, stable in appearance. There is probable encroachment on the ventral root of C6 on the right, unchanged. C6-C7: Broad-based disc osteophyte complex with mild flattening of the ventral dural sac, stable in appearance, without cord impingement or canal stenosis. Bilateral uncovertebral spurring is again noted with mild right and moderate left-sided neural foraminal stenosis, stable in appearance. C7-T1: Small central to right paramedian disc osteophyte complex, stable in appearance, without significant facet arthrosis, canal or neuroforaminal stenosis. T1-T2: No disc herniation or canal stenosis. No significant DJD or neuroforaminal stenosis. Small perineural cysts noted bilaterally, stable in appearance. Spinal Cord: The cervical and visualized upper thoracic spinal cord is normal in signal intensity throughout, without focal lesion, edema or syrinx. Probable chronic spinal cord volume loss at C4-C5, unchanged. Extracranial Soft Tissues: 1.8 cm left thyroid lobe nodule is noted. Recommend follow-up thyroid ultrasound otherwise the visualized extraspinal soft tissues are grossly unremarkable in appearance. IMPRESSION: 1. Mild anterolisthesis at C3-C4 since the previous exam and mild retrolisthesis at C4-C5 stable in appearance. 2. Multilevel DDD and spondylosis largely stable in appearance with multilevel disc osteophyte complexes and disc herniations as described above largely similar in appearance to the previous exam with moderate central spinal canal stenosis at C4-C5 and mild central canal stenosis at C5-C6 stable in appearance. Cqsj-mp-ymtzggpp ventral cord impingement at C4-C5 is stable with probable chronic spinal cord volume loss at this level unchanged. 3. Multilevel DJD as described above with progression of facet arthrosis on the left at C3-C4. Multilevel bilateral neural foraminal stenosis is largely stable in appearance as detailed by level above. 4. 1.8 cm left thyroid lobe nodule. Recommend follow-up thyroid ultrasound. CT lung screening 04/13/24 IMPRESSION: 1. No evidence of pulmonary malignancy. 2. Akhd-zb-lkyuyjyl emphysema with bronchial thickening. 3. Other incidental findings as described above. 4. Lung-RADS Category S Negative. There are no clinically significant or potentially clinically significant findings not related to the lungs requiring urgent additional evaluation. Assessment & Plan Assessment & Plan (1) Basal cell carcinoma: Code(s): C44.91 - Basal cell carcinoma of skin, unspecified Category: Medical (2) Lumbosacral spondylosis: Code(s): M47.817 - Spondylosis without myelopathy or radiculopathy, lumbosacral region Category: Medical (3) Chronic pain syndrome: Code(s): G89.4 - Chronic pain syndrome Category: Medical (4) Degenerative disc disease, cervical: Code(s): M50.30 - Other cervical disc degeneration, unspecified cervical region Category: Medical (5) Fibromyalgia: Code(s): M79.7 - Fibromyalgia Category: Medical (6) Opiate analgesic contract exists: Code(s): Z79.891 - 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 There is no evidence of misuse, abuse or diversion at this time. [facility] reviewed. Script sent for oxycodone 5 mg QID prn for moderate-severe pain with advanced day 08/27/24. Continue to monitor for any side effects. Discussed with the patient the risks associated with benzodiazepine and opioid use. She is aware and verbalized an agreement to take the medications at least two hours apart. Patient has Narcan at home. Pending Dermatology for re-evaluation for right nose basal cell carcinoma. Patient requests provider in [facility]. Referral placed at previous visit. All questions and concerns have been answered and patient agreed with the plan. Follow up in 5 weeks and sooner as needed. Medications: Refilled 2 oxycodone Partial Fill upon patient request. 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
[2024-07-30 09:07] VITALS: BP 161/85; PULSE 101; O2SAT 99; BMI 19.3
== END 2024-07-30 09:16 | disposition home or self-care (01) ==
PROVIDERS: PCP Internal Medicine; Visit Provider Nurse Practitioner Family
DX: C44.91 Basal cell carcinoma of skin, unspecified (principal); M47.817 Spondylosis without myelopathy or radiculopathy, lumbosacral region; G89.4 Chronic pain syndrome; M50.30 Other cervical disc degeneration, unspecified cervical region; M79.7 Fibromyalgia; Z79.891 Long term (current) use of opiate analgesic; L98.9 Disorder of the skin and subcutaneous tissue, unspecified
CPT/HCPCS: 99214; G2211

== ENCOUNTER → 2024-07-30 08:52 | Outpatient (BNVA) | payer MEDICARE, OTHER, SELFPAY | PROVIDERS: PCP Internal Medicine; Visit Provider Nurse Practitioner Family | DX: G89.4 Chronic pain syndrome (principal); M50.30 Other cervical disc degeneration, unspecified cervical region; M47.817 Spondylosis without myelopathy or radiculopathy, lumbosacral region; M79.7 Fibromyalgia; C44.91 Basal cell carcinoma of skin, unspecified; L98.9 Disorder of the skin and subcutaneous tissue, unspecified; Z79.891 Long term (current) use of opiate analgesic | CPT/HCPCS: 99212 ==

== ENCOUNTER 2024-09-03 08:44 | Outpatient (AMB) | payer MEDICARE, OTHER, SELFPAY ==
--- NOTE | 2024-09-03 08:46 | MHC.OFFVIS ---
Vital Signs 09/03/24 08:51 Height 5 ft 5 in Weight 108 lb BMI 18.0 BP 177/89 H Blood Pressure Location Rt brachial Position Sitting Pulse 120 H Pulse Source Pulse Oximeter Pulse Oximetry (%) 99 Oxygen Delivery Method Room Air Intake Visit Reasons: Pill Count Intake Note: Katerina comes in today for a pill count to oxycodone, patient should have 92 tablets and presents with 94 tablets which she last took today 09/03/24 at 5 am. 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 Patient is supposed to have #92 pills, in her possession has #94 pills. This demonstrates a responsible attitude in regards to the medication regimen. Patient reports mild to moderate analgesia on her regimen of oxycodone 5 mg QID prn without noted side effects. She rates her pain 5/10 today. Denies any fever, chills, constipation, nausea, sedation, dizziness, or urinary retention. Patient reports increasing pain in her neck, shoulders and lower back. Neck pain is axial without radiation into her upper extremities and worse with cervical extension and lateral rotations. Back pain is axial and also radiates into her hips and lower extremities. She is interested in interventional treatments for potential therapeutic injections, RFA or peripheral nerve stimulator with Sprint PNS trial. Patient has pending Dermatology evaluation for right nose basal cell carcinoma on 10/09/24. Patient reports last evaluation at [facility] over 10 years ago. PRIOR: Patient is a 68 years old female with history of chronic pain syndrome, 3 herniated cervical discs, scoliosis, lumbar spondylosis, deteriorating lumbar spine, possible nerve damage from pelvic surgery in 2020, fibromyalgia, arthritis, chronic fatigue, pancreatic pre-cancerous mass (followed at [facility] and [facility]), thyroid nodules (2 biopsies at [facility] 2022, both benign), right nose basal cell carcinoma (was offered a replacement cartilage from the ear-patient declined), depression presents today to discuss medical pain management. Patient reports history of a fall that herniated 3 cervical discs and was offered immediate surgery which patient declined. She was started on tramadol with advanced dose to 100 mg QID. By 2012, her neck and shoulder pain became unbearable and she was referred to Dr. Matt at [facility] and was deemed non-surgical and was offered physical therapy. During COVID outbreak in 2019, patient states her script for Tramadol was cancelled due to her missing a physical exam visit. She started cannabis use and trialled oxycodone 5 mg one tab per day without relief prescribed by her PCP. She notes opioid medication in the past for 15 years allowed her to be less symptomatic and more functional. Patient reports chronic neck and shoulder pain as well as lower back pain extending to her hips (left>right), buttocks and lower legs significantly affect her daily activities, functioning, mobility, sleep, mood, social and interactions. Any physical activity intensifies her pain which is worst at 1600 with pain rated at 8/10 and least severe around 0400 rated at 6/10. Patient has retired from [employer] in 2001 due to severe low back pain and fatigue. Denies any fever, bladder or bowel dysfunction, or saddle anesthesia. Patient is interested in interventional and medical management to manage her chronic pain generators. Patient denies alcohol or illicit drug use. Consumes 2-3 cups of coffee daily. She continues to take edible marijuana grown at home and smokes 1 PPD for past 60 years. Patient is interested in lung cancer screening and will be referred to our Pulmonary services. Patient reports good social support, has 8 siblings and states her depression has been well controlled on trazadone and lorazepam prn. She has also tried Celexa, Paxil, Wellbutrin and amitriptyline in the past. Patient used to follow [facility] in 2001 for depression. She denies following Mental support at this time and states she has close contact with her family who have been very supportive to her. Patient reports uncontrolled daily and constant significant pain has negatively affected her depressive states. Denies any suicidal ideation or hallucinations. Location: Lower back radiates to buttocks, hips, legs; neck, bilateral shoulders Duration: Chronic pain for many years, worsening since 2020 Characteristics of symptom or complaint: Pulsing, throbbing, pinching, aching, wrenching, stabbing,sharp, burning Aggravating or associated factors: Any movement, walking, standing, sitting, Relieving factors: Previously-Oxycodone, Tramadol; now-cannabis edible Treatment: PT for neck and shoulder, massage therapy [facility] Medical History Pancreatic cancer Basal cell carcinoma Hypertension Opiate analgesic contract exists Benzodiazepine dependence Chronic pain syndrome Degenerative disc disease, cervical Cervical disc herniation Nicotine dependence, cigarettes, uncomplicated Depression H/O pelvic mass Surgical History History of basal cell carcinoma excision History of pelvic surgery History of hysterectomy Family History Maternal Grandfather Lung cancer, Onset Age: 67 Social History Housing: House Alcohol intake: current Alcohol intake frequency: holidays/special occasions only Patient Tobacco Use Status: Former Tobacco user Tobacco use type: Cigarette Years Smoked: (onset 8yo, 1ppd x 60yrs, 50pyh) e-Cigarette/Vaping Use: Never Used Second Hand Smoke Exposure: Yes service: No Current occupational status: retired Cognitive needs: No Hearing needs: No Vision needs: Yes Review of Systems Const All systems reviewed & are unremarkable except as noted in HPI and below Physical Exam General: Appears afebrile. No acute distress. Alert and oriented. Mood and affect appropriate. Pleasant. Follows and participates in conversation appropriately. Respiratory effort is unlabored. No cough. Able to transition from sit to stand unassisted. Ambulates with bilaterally normal heel strike and toe off. Neck Other: Limited neck range of motion, cervical extension and lateral rotations reproduce moderate pain. Flexion is intact and does not reproduce pain. Neck: Yes normal visual inspection, Yes no lymphadenopathy, Yes supple, No anterior neck swelling, Yes no JVD, No prominent supraclavicular fat pad and No prominent dorsocervical fat pad General: Yes no CVA tenderness Back/Spine/Pelvis Back: no CVA tenderness Cervical Spine: No Lhermitte's sign positive, loss of normal cervical lordosis, cervical muscular tenderness, pain with cervical ROM, cervical spasm, No Cervical spine tenderness and No step off deformity Thoracic/Lumbar Spine: thoracic and lumbar spine normal to inspection, Lasegue's sign negative, straight leg raise negative bilaterally, pain with thoraco-lumbar ROM, thoraco-lumbar ROM limited, No thoracic spinal tenderness and lumbar spinal tenderness at L4 and at L5 Extrem General: Yes capillary refill normal, Yes no clubbing, cyanosis or edema and Yes no calf tenderness Psych Appearance: grossly normal Mental Status: mental status grossly normal Speech and movement: Normal speech and movement present Affect: normal affect Attitude: cooperative Thought process: Normal thought process present Thought content: Normal thought content present, suicidality, no hallucinations and Depressive thoughts present Insight: Good insight present (Psych) Judgement: Good judgement present (Psych) Results Reviewed Results Reviewed: MR CERVICAL SPINE WITHOUT CONTRAST 08/06/22 CLINICAL INFORMATION: 66-year-old with self-reported neck and bilateral shoulder pain and headaches. Cervical disc displacement. COMPARISON: 11/14/2012 MRI FINDINGS: Alignment: There is 2 mm of anterolisthesis at C3-C4 since the previous exam. There is 2 mm of retrolisthesis at C4-C5, stable in appearance. Otherwise normal alignment unchanged in appearance. Craniocervical Junction/C1-C2 Articulations: Intact and aligned. Visualized Intracranial Structures: Within normal limits. Vertebral Bodies: Normal height. Disc Spaces and Endplates: Severe disc space height loss at C4-C5 with Schmorl's nodes, disc desiccation and spondylosis similar to the previous exam. Mild disc space height loss at C3-C4, stable in appearance. Rlkmpwqc-dw-oapjgd disc space height loss at C5-C6 and C6-C7 with disc desiccation, tiny Schmorl's nodes and mild degrees of spondylosis, stable in appearance. Bone Marrow: Minor type I degenerative marrow signal changes seen along the endplates at C4-C5, C5-C6 and C6-C7 with associated type II degenerative marrow signal changes. Type II marrow signal change seen most prominently at C4-C5, stable in appearance. No suspicious marrow replacing process or other bone marrow edema. C2-C3: Mild posterior disc osteophyte complex asymmetric to the right, stable in appearance with slight flattening of the dural sac on the right, unchanged, without cord impingement or canal stenosis. There is uncovertebral and facet arthrosis bilaterally, with progression of facet arthrosis on the left. There is moderate right and mild left-sided neural foraminal stenosis, progressed on the left and stable on the right. C3-C4: Broad-based central disc protrusion similar to previous study with mild flattening of the central dural sac with trace anterolisthesis at this level on the current exam without cord impingement or canal stenosis. There is uncovertebral spurring, left more than right, with mild right and severe left-sided facet arthrosis, progressed on the left. There is cxgrarkk-fh-dpkmcy left-sided and mild right-sided neural foraminal stenosis, largely unchanged. C4-C5: Mild retrolisthesis, with broad-based posterior disc osteophyte complex and a superimposed central disc herniation similar to the previous exam, with ixjw-sn-tkwcbwqo ventral cord impingement centrally with AP cord caliber of 5 mm, stable in appearance. There is associated moderate central spinal canal stenosis, stable in appearance. There is uncovertebral spurring and facet arthrosis bilaterally similar to the previous exam, with utiorjvt-am-sebcxe left-sided and bkec-rh-prrikfjn right-sided neural foraminal stenosis, stable in appearance. C5-C6: Broad-based disc osteophyte complex noted asymmetric to the right, similar to the previous exam, with effacement of the dural sac on the right without cord compression, stable in appearance. Mild central canal stenosis is stable. Bilateral uncovertebral spurring and facet arthropathy is similar to the previous exam with irdiqjfy-sw-svtofw bilateral neural foraminal stenosis, stable in appearance. There is probable encroachment on the ventral root of C6 on the right, unchanged. C6-C7: Broad-based disc osteophyte complex with mild flattening of the ventral dural sac, stable in appearance, without cord impingement or canal stenosis. Bilateral uncovertebral spurring is again noted with mild right and moderate left-sided neural foraminal stenosis, stable in appearance. C7-T1: Small central to right paramedian disc osteophyte complex, stable in appearance, without significant facet arthrosis, canal or neuroforaminal stenosis. T1-T2: No disc herniation or canal stenosis. No significant DJD or neuroforaminal stenosis. Small perineural cysts noted bilaterally, stable in appearance. Spinal Cord: The cervical and visualized upper thoracic spinal cord is normal in signal intensity throughout, without focal lesion, edema or syrinx. Probable chronic spinal cord volume loss at C4-C5, unchanged. Extracranial Soft Tissues: 1.8 cm left thyroid lobe nodule is noted. Recommend follow-up thyroid ultrasound otherwise the visualized extraspinal soft tissues are grossly unremarkable in appearance. IMPRESSION: 1. Mild anterolisthesis at C3-C4 since the previous exam and mild retrolisthesis at C4-C5 stable in appearance. 2. Multilevel DDD and spondylosis largely stable in appearance with multilevel disc osteophyte complexes and disc herniations as described above largely similar in appearance to the previous exam with moderate central spinal canal stenosis at C4-C5 and mild central canal stenosis at C5-C6 stable in appearance. Vmht-qx-gpawhbdn ventral cord impingement at C4-C5 is stable with probable chronic spinal cord volume loss at this level unchanged. 3. Multilevel DJD as described above with progression of facet arthrosis on the left at C3-C4. Multilevel bilateral neural foraminal stenosis is largely stable in appearance as detailed by level above. 4. 1.8 cm left thyroid lobe nodule. Recommend follow-up thyroid ultrasound. CT lung screening 04/13/24 IMPRESSION: 1. No evidence of pulmonary malignancy. 2. Lloi-qy-cwqtllmf emphysema with bronchial thickening. 3. Other incidental findings as described above. 4. Lung-RADS Category S Negative. There are no clinically significant or potentially clinically significant findings not related to the lungs requiring urgent additional evaluation. Assessment & Plan Assessment & Plan (1) Basal cell carcinoma: Code(s): C44.91 - Basal cell carcinoma of skin, unspecified Category: Medical (2) Lumbosacral spondylosis: Code(s): M47.817 - Spondylosis without myelopathy or radiculopathy, lumbosacral region Category: Medical (3) Chronic pain syndrome: Code(s): G89.4 - Chronic pain syndrome Category: Medical (4) Degenerative disc disease, cervical: Code(s): M50.30 - Other cervical disc degeneration, unspecified cervical region Category: Medical (5) Fibromyalgia: Code(s): M79.7 - Fibromyalgia Category: Medical (6) Opiate analgesic contract exists: Code(s): 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 There is no evidence of misuse, abuse or diversion at this time. [employer] reviewed. Script sent for oxycodone 5 mg QID prn for moderate-severe pain with advanced day 09/25/24. Continue to monitor for any side effects. Discussed with the patient the risks associated with benzodiazepine and opioid use. She is aware and verbalized an agreement to take the medications at least two hours apart. Patient has Narcan at home. Pending Dermatology for re-evaluation for right nose basal cell carcinoma on 10/09/24. Schedule Bilateral Diagnostic C4-C5-C6 MBB with local and fluoroscopy for axial neck pain. If patient has positive response, will consider therapeutic cervical MBBs, Sprint PNS trial or RFA procedures for a longer term pain relief. Expectations, risks and benefits were reviewed. Patient is aware she will be contacted to schedule this procedure. All questions and concerns have been answered and patient agreed with the plan. Follow up in 5 weeks and sooner as needed. Medications: Refilled oxycodone Partial Fill upon patient request. 5 mg PO QID 30 days PRN 120 tabs 0RF pain G89.4 - Chronic pain syndrome, M47.817 - Spondylosis without myelopathy or radiculopathy, lumbosacral region, M50.30 - Other cervical disc degeneration, unspecified cervical region, Z79.891 - correction (current) use of opiate analgesic Coding Level of Care Code Est Pt Level 4 (83300) Complex EM visit Add On G2211 Diagnoses Basal cell carcinoma C44.91 Lumbosacral spondylosis M47.817 Chronic pain syndrome G89.4 Degenerative disc disease, cervical M50.30 Fibromyalgia M79.7 Opiate analgesic contract exists Z79.891 Cervical spondylosis M47.812
[2024-09-03 08:51] VITALS: BP 177/89; PULSE 120; O2SAT 99; BMI 18.0
== END 2024-09-03 09:01 | disposition home or self-care (01) ==
PROVIDERS: PCP Internal Medicine; Visit Provider Nurse Practitioner Family
DX: C44.91 Basal cell carcinoma of skin, unspecified (principal); M47.817 Spondylosis without myelopathy or radiculopathy, lumbosacral region; G89.4 Chronic pain syndrome; M50.30 Other cervical disc degeneration, unspecified cervical region; M79.7 Fibromyalgia; Z79.891 Long term (current) use of opiate analgesic; M47.812 Spondylosis without myelopathy or radiculopathy, cervical region
CPT/HCPCS: 99214; G2211

== ENCOUNTER → 2024-09-03 08:44 | Outpatient (BNVA) | payer MEDICARE, OTHER, SELFPAY | PROVIDERS: PCP Internal Medicine; Visit Provider Nurse Practitioner Family | DX: M47.817 Spondylosis without myelopathy or radiculopathy, lumbosacral region (principal); M50.30 Other cervical disc degeneration, unspecified cervical region; G89.4 Chronic pain syndrome; M47.812 Spondylosis without myelopathy or radiculopathy, cervical region; M79.7 Fibromyalgia; C44.311 Basal cell carcinoma of skin of nose; Z79.891 Long term (current) use of opiate analgesic | CPT/HCPCS: 99212 ==

== ENCOUNTER 2024-10-08 08:43 | Outpatient (AMB) | payer MEDICARE, OTHER, SELFPAY ==
--- NOTE | 2024-10-08 08:45 | MHC.OFFVIS ---
Vital Signs 10/08/24 08:51 Height 5 ft 5 in Weight 111 lb 6 oz BMI 18.5 BP 177/88 H Blood Pressure Location Rt brachial Position Sitting Pulse 110 H Pulse Source Pulse Oximeter Pulse Oximetry (%) 98 Oxygen Delivery Method Room Air Intake Visit Reasons: PILL COUNT Intake Note: Katerina comes in today for a pill count to oxycodone, patient should have 76 tablets and presents with 76 tablets which she last took today 10/08/24 at 5am. Pain today 5/10 Clinical Pharmacy Manager Required: No Accompanied by: Self / Same As Patient Allergies Ouvbhvj-VIO-FqW Reductase Inhibitor Allergy (Intermediate, Verified 10/08/24 08:52) elevated liver enzymes HPI Comments Details: Patient presents today for a pill count. Patient is supposed to have #76 pills, in her possession has #76 pills. This demonstrates a responsible attitude in regards to the medication regimen. Patient reports reasonable analgesia on her regimen of oxycodone 5 mg QID prn without noted side effects. She rates her pain 5/10 today. Denies any fever, chills, constipation, nausea, sedation, dizziness, or urinary retention. Patient continues to endorse pain in her neck, shoulders and lower back. Neck pain is axial without radiation into her upper extremities and worse with cervical extension and lateral rotations. Back pain is axial and also radiates into her hips and lower extremities. She is scheduled to undergo diagnostic cervical medial branch blocks next week for potential RFA procedure. Patient is also scheduled to see [facility] for evaluation for right nose basal cell carcinoma on 10/09/24. Patient reports last evaluation at [facility] over 10 years ago. PRIOR: Patient is a 68 years old female with history of chronic pain syndrome, 3 herniated cervical discs, scoliosis, lumbar spondylosis, deteriorating lumbar spine, possible nerve damage from pelvic surgery in 2020, fibromyalgia, arthritis, chronic fatigue, pancreatic pre-cancerous mass (followed at [facility] and [facility]), thyroid nodules (2 biopsies [place] [facility] [place], both benign), right nose basal cell carcinoma (was offered a replacement cartilage from the ear-patient declined), depression presents today to discuss medical pain management. Patient reports history of a fall that herniated 3 cervical discs and was offered immediate surgery which patient declined. She was started on tramadol with advanced dose to 100 mg QID. By 2012, her neck and shoulder pain became unbearable and she was referred to Dr. Matt [place] [facility] and was deemed non-surgical and was offered physical therapy. During COVID outbreak in 2019, patient states her script for Tramadol was cancelled due to her missing a physical exam visit. She started cannabis use and trialled oxycodone 5 mg one tab per day without relief prescribed by her PCP. She notes opioid medication in the past for 15 years allowed her to be less symptomatic and more functional. Patient reports chronic neck and shoulder pain as well as lower back pain extending to her hips (left>right), buttocks and lower legs significantly affect her daily activities, functioning, mobility, sleep, mood, social and interactions. Any physical activity intensifies her pain which is worst at 1600 with pain rated at 8/10 and least severe around 0400 rated at 6/10. Patient has retired from [employer] in 2001 due to severe low back pain and fatigue. Denies any fever, bladder or bowel dysfunction, or saddle anesthesia. Patient is interested in interventional and medical management to manage her chronic pain generators. Patient denies alcohol or illicit drug use. Consumes 2-3 cups of coffee daily. She continues to take edible marijuana grown at home and smokes 1 PPD for past 60 years. Patient is interested in lung cancer screening and will be referred to our Pulmonary services. Patient reports good social support, has 8 siblings and states her depression has been well controlled on trazadone and lorazepam prn. She has also tried Celexa, Paxil, Wellbutrin and amitriptyline in the past. Patient used to follow [facility] in 2001 for depression. She denies following Mental support at this time and states she has close contact with her family who have been very supportive to her. Patient reports uncontrolled daily and constant significant pain has negatively affected her depressive states. Denies any suicidal ideation or hallucinations. Location: Lower back radiates to buttocks, hips, legs; neck, bilateral shoulders Duration: Chronic pain for many years, worsening since 2020 Characteristics of symptom or complaint: Pulsing, throbbing, pinching, aching, wrenching, stabbing,sharp, burning Aggravating or associated factors: Any movement, walking, standing, sitting, Relieving factors: Previously-Oxycodone, Tramadol; now-cannabis edible Treatment: PT for neck and shoulder, massage therapy [facility] Medical History Pancreatic cancer Basal cell carcinoma Hypertension Opiate analgesic contract exists Benzodiazepine dependence Chronic pain syndrome Degenerative disc disease, cervical Cervical disc herniation Nicotine dependence, cigarettes, uncomplicated Depression H/O pelvic mass Surgical History History of basal cell carcinoma excision History of pelvic surgery History of hysterectomy Family History Maternal Grandfather Lung cancer, Onset Age: 67 Social History Housing: House Alcohol intake: current Alcohol intake frequency: holidays/special occasions only Patient Tobacco Use Status: Former Tobacco user Tobacco use type: Cigarette Years Smoked: (onset 8yo, 1ppd x 60yrs, 50pyh) e-Cigarette/Vaping Use: Never Used Second Hand Smoke Exposure: Yes service: No Current occupational status: retired Cognitive needs: No Hearing needs: No Vision needs: Yes Review of Systems Const All systems reviewed & are unremarkable except as noted in HPI and below Physical Exam General: Appears afebrile. Alert and oriented. Mood and affect appropriate. Follows and participates in conversation appropriately. Respiratory effort is unlabored. No cough. Able to transition from sit to stand unassisted. Ambulates with bilaterally normal heel strike and toe off. Neck Other: Limited neck range of motion, cervical extension and lateral rotations reproduce moderate pain. Flexion reproduces mild pain. Neck: Yes normal visual inspection, Yes no lymphadenopathy, Yes supple, No anterior neck swelling, Yes no JVD, No prominent supraclavicular fat pad and No prominent dorsocervical fat pad General: Yes no CVA tenderness Back/Spine/Pelvis Back: no CVA tenderness Cervical Spine: No Lhermitte's sign positive, loss of normal cervical lordosis, cervical muscular tenderness, pain with cervical ROM, cervical spasm and No Cervical spine tenderness Thoracic/Lumbar Spine: thoracic and lumbar spine normal to inspection, No Thoracic/lumbar spine scar(s), Lasegue's sign negative, straight leg raise negative bilaterally, pain with thoraco-lumbar ROM, thoraco-lumbar ROM limited, No thoracic spinal tenderness and lumbar spinal tenderness at L4 and at L5 Psych Appearance: grossly normal Mental Status: mental status grossly normal Speech and movement: Normal speech and movement present Affect: normal affect Attitude: cooperative Thought process: Normal thought process present Thought content: Normal thought content present, suicidality, no hallucinations and Depressive thoughts present Insight: Good insight present (Psych) Judgement: Good judgement present (Psych) Results Reviewed Results Reviewed: MR CERVICAL SPINE WITHOUT CONTRAST 08/06/22 CLINICAL INFORMATION: 66-year-old with self-reported neck and bilateral shoulder pain and headaches. Cervical disc displacement. COMPARISON: 11/14/2012 MRI FINDINGS: Alignment: There is 2 mm of anterolisthesis at C3-C4 since the previous exam. There is 2 mm of retrolisthesis at C4-C5, stable in appearance. Otherwise normal alignment unchanged in appearance. Craniocervical Junction/C1-C2 Articulations: Intact and aligned. Visualized Intracranial Structures: Within normal limits. Vertebral Bodies: Normal height. Disc Spaces and Endplates: Severe disc space height loss at C4-C5 with Schmorl's nodes, disc desiccation and spondylosis similar to the previous exam. Mild disc space height loss at C3-C4, stable in appearance. Chezpmxl-ue-uyyqeh disc space height loss at C5-C6 and C6-C7 with disc desiccation, tiny Schmorl's nodes and mild degrees of spondylosis, stable in appearance. Bone Marrow: Minor type I degenerative marrow signal changes seen along the endplates at C4-C5, C5-C6 and C6-C7 with associated type II degenerative marrow signal changes. Type II marrow signal change seen most prominently at C4-C5, stable in appearance. No suspicious marrow replacing process or other bone marrow edema. C2-C3: Mild posterior disc osteophyte complex asymmetric to the right, stable in appearance with slight flattening of the dural sac on the right, unchanged, without cord impingement or canal stenosis. There is uncovertebral and facet arthrosis bilaterally, with progression of facet arthrosis on the left. There is moderate right and mild left-sided neural foraminal stenosis, progressed on the left and stable on the right. C3-C4: Broad-based central disc protrusion similar to previous study with mild flattening of the central dural sac with trace anterolisthesis at this level on the current exam without cord impingement or canal stenosis. There is uncovertebral spurring, left more than right, with mild right and severe left-sided facet arthrosis, progressed on the left. There is beqhujna-sg-hlmjyt left-sided and mild right-sided neural foraminal stenosis, largely unchanged. C4-C5: Mild retrolisthesis, with broad-based posterior disc osteophyte complex and a superimposed central disc herniation similar to the previous exam, with uqqi-xt-masxdybs ventral cord impingement centrally with AP cord caliber of 5 mm, stable in appearance. There is associated moderate central spinal canal stenosis, stable in appearance. There is uncovertebral spurring and facet arthrosis bilaterally similar to the previous exam, with tuqxqlaj-gx-krzvfj left-sided and juqs-cx-fhoutsxw right-sided neural foraminal stenosis, stable in appearance. C5-C6: Broad-based disc osteophyte complex noted asymmetric to the right, similar to the previous exam, with effacement of the dural sac on the right without cord compression, stable in appearance. Mild central canal stenosis is stable. Bilateral uncovertebral spurring and facet arthropathy is similar to the previous exam with cwugfkdo-oz-xftmst bilateral neural foraminal stenosis, stable in appearance. There is probable encroachment on the ventral root of C6 on the right, unchanged. C6-C7: Broad-based disc osteophyte complex with mild flattening of the ventral dural sac, stable in appearance, without cord impingement or canal stenosis. Bilateral uncovertebral spurring is again noted with mild right and moderate left-sided neural foraminal stenosis, stable in appearance. C7-T1: Small central to right paramedian disc osteophyte complex, stable in appearance, without significant facet arthrosis, canal or neuroforaminal stenosis. T1-T2: No disc herniation or canal stenosis. No significant DJD or neuroforaminal stenosis. Small perineural cysts noted bilaterally, stable in appearance. Spinal Cord: The cervical and visualized upper thoracic spinal cord is normal in signal intensity throughout, without focal lesion, edema or syrinx. Probable chronic spinal cord volume loss at C4-C5, unchanged. Extracranial Soft Tissues: 1.8 cm left thyroid lobe nodule is noted. Recommend follow-up thyroid ultrasound otherwise the visualized extraspinal soft tissues are grossly unremarkable in appearance. IMPRESSION: 1. Mild anterolisthesis at C3-C4 since the previous exam and mild retrolisthesis at C4-C5 stable in appearance. 2. Multilevel DDD and spondylosis largely stable in appearance with multilevel disc osteophyte complexes and disc herniations as described above largely similar in appearance to the previous exam with moderate central spinal canal stenosis at C4-C5 and mild central canal stenosis at C5-C6 stable in appearance. Wgbd-le-asfawdhb ventral cord impingement at C4-C5 is stable with probable chronic spinal cord volume loss at this level unchanged. 3. Multilevel DJD as described above with progression of facet arthrosis on the left at C3-C4. Multilevel bilateral neural foraminal stenosis is largely stable in appearance as detailed by level above. 4. 1.8 cm left thyroid lobe nodule. Recommend follow-up thyroid ultrasound. CT lung screening 04/13/24 IMPRESSION: 1. No evidence of pulmonary malignancy. 2. Opwg-xc-ftbcbrht emphysema with bronchial thickening. 3. Other incidental findings as described above. 4. Lung-RADS Category S Negative. There are no clinically significant or potentially clinically significant findings not related to the lungs requiring urgent additional evaluation. Assessment & Plan Assessment & Plan (1) Lumbosacral spondylosis: Code(s): M47.817 - Spondylosis without myelopathy or radiculopathy, lumbosacral region Category: Medical (2) Chronic pain syndrome: Code(s): G89.4 - Chronic pain syndrome Category: Medical (3) Degenerative disc disease, cervical: Code(s): M50.30 - Other cervical disc degeneration, unspecified cervical region Category: Medical (4) Fibromyalgia: Code(s): M79.7 - Fibromyalgia Category: Medical (5) Opiate analgesic contract exists: Code(s): Z79.891 - technician terminal and repeater (current) use of opiate analgesic Category: Medical (6) Cervical spondylosis: Code(s): M47.812 - Spondylosis without myelopathy or radiculopathy, cervical region Category: Medical Plan Patient has shown accountability for her medication regimen and the pill count was accurate. There is no evidence of misuse, abuse or diversion at this time. [employer] reviewed. Script sent for oxycodone 5 mg QID prn for moderate-severe pain with advanced day 10/26/24. Discussed with the patient the risks associated with benzodiazepine and opioid use. She is aware and verbalized an agreement to take the medications at least two hours apart. Patient has Narcan at home. Pending [facility] for re-evaluation for right nose basal cell carcinoma on 10/09/24. Proceed with Bilateral Diagnostic C4-C5-C6 MBB with local and fluoroscopy for axial neck pain as scheduled next week for potential RFA procedure. All questions and concerns have been answered and patient agreed with the plan. Follow up in 4-5 weeks and sooner as needed. Medications: Refilled oxycodone Partial Fill upon patient request. 5 mg PO QID 30 days PRN 120 tabs 0RF pain G89.4 - Chronic pain syndrome, M47.817 - Spondylosis without myelopathy or radiculopathy, lumbosacral region, M50.30 - Other cervical disc degeneration, unspecified cervical region, Z79.891 - technician terminal and repeater (current) use of opiate analgesic Coding Level of Care Code Est Pt Level 4 (92740) Complex EM visit Add On G2211 Diagnoses Lumbosacral spondylosis M47.817 Chronic pain syndrome G89.4 Degenerative disc disease, cervical M50.30 Fibromyalgia M79.7 Opiate analgesic contract exists Z79.891 Cervical spondylosis M47.812
[2024-10-08 08:51] VITALS: BP 177/88; PULSE 110; O2SAT 98; BMI 18.5
== END 2024-10-08 08:58 | disposition home or self-care (01) ==
PROVIDERS: PCP Internal Medicine; Visit Provider Nurse Practitioner Family
DX: M47.817 Spondylosis without myelopathy or radiculopathy, lumbosacral region (principal); G89.4 Chronic pain syndrome; M50.30 Other cervical disc degeneration, unspecified cervical region; M79.7 Fibromyalgia; Z79.891 Long term (current) use of opiate analgesic; M47.812 Spondylosis without myelopathy or radiculopathy, cervical region
CPT/HCPCS: 99214; G2211

== ENCOUNTER → 2024-10-08 08:43 | Outpatient (BNVA) | payer MEDICARE, OTHER, SELFPAY | PROVIDERS: PCP Internal Medicine; Visit Provider Nurse Practitioner Family | DX: M47.817 Spondylosis without myelopathy or radiculopathy, lumbosacral region (principal); M50.30 Other cervical disc degeneration, unspecified cervical region; M47.812 Spondylosis without myelopathy or radiculopathy, cervical region; M79.7 Fibromyalgia; G89.4 Chronic pain syndrome; Z51.81 Encounter for therapeutic drug level monitoring; Z79.891 Long term (current) use of opiate analgesic | CPT/HCPCS: 99212 ==

== ENCOUNTER → 2024-11-12 08:59 | Outpatient (BNVA) | payer MEDICARE, OTHER, SELFPAY | PROVIDERS: PCP Internal Medicine; Visit Provider Nurse Practitioner Family ==

== ENCOUNTER 2024-12-17 09:09 | Outpatient (AMB) | payer MEDICARE, OTHER, SELFPAY ==
--- NOTE | 2024-12-17 09:12 | A.OFFVIS_ITS ---
Vital Signs 12/17/24 09:20 Height 5 ft 5 in Weight 109 lb 4 oz BMI 18.2 BP 156/76 H Blood Pressure Location Rt brachial Position Sitting Pulse 93 Pulse Source Pulse Oximeter Pulse Oximetry (%) 98 Oxygen Delivery Method Room Air Intake Visit Reasons: PILL COUNT FORM Intake Note: Katerina comes in today for a pill count to oxycodone, patient should have 32 tablets and presents with 32 tablets which she last took today 12/17/24 at 4am. 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 Patient is supposed to have #32 pills, in her possession has # pills. This demonstrates a responsible attitude in regards to the medication regimen. Patient reports reasonable analgesia on her regimen of oxycodone 5 mg QID prn without noted side effects. She rates her pain 5/10 today. Denies any fever, chills, constipation, nausea, sedation, dizziness, or urinary retention. Patient reports her neck pain has been minimal and she would like to hold off on diagnostic cervical medial branch blocks at this time. Patient was seen [facility] for evaluation for right nose basal cell carcinoma on 10/09/24 and was offered MOHS surgery which patient declined. She states same surgery was offered 10 years ago and she is not interested to remove significant part of her nose. Her nose lesion is slightly smaller than last visit. Patient reports she has been doing baking soda soaks and rinses as alkaline-promoting agent. PRIOR: Patient is a 68 years old female with history of chronic pain syndrome, 3 herniated cervical discs, scoliosis, lumbar spondylosis, deteriorating lumbar spine, possible nerve damage from pelvic surgery in 2020, fibromyalgia, arthritis, chronic fatigue, pancreatic pre-cancerous mass (followed at [facility]), thyroid nodules (2 biopsies at [facility] [place], both benign), right nose basal cell carcinoma (was offered a replacement cartilage from the ear-patient declined), depression presents today to discuss medical pain management. Patient reports history of a fall that herniated 3 cervical discs and was offered immediate surgery which patient declined. She was started on tramadol with advanced dose to 100 mg QID. By 2012, her neck and shoulder pain became unbearable and she was referred to Dr. Matt at [facility] and was deemed non-surgical and was offered physical therapy. During COVID outbreak in 2019, patient states her script for Tramadol was cancelled due to her missing a physical exam visit. She started cannabis use and trialled oxycodone 5 mg one tab per day without relief prescribed by her PCP. She notes opioid medication in the past for 15 years all owed her to be less symptomatic and more functional. Patient reports chronic neck and shoulder pain as well as lower back pain extending to her hips (left>right), buttocks and lower legs significantly affect her daily activities, functioning, mobility, sleep, mood, social and interactions. Any physical activity intensifies her pain which is worst at 1600 with pain rated at 8/10 and least severe around 0400 rated at 6/10. Patient has retired from [employer] in 2001 due to severe low back pain and fatigue. Denies any fever, bladder or bowel dysfunction, or saddle anesthesia. Patient is interested in interventional and medical management to manage her chronic pain generators. Patient denies alcohol or illicit drug use. Consumes 2-3 cups of coffee daily. She continues to take edible marijuana grown at home and smokes 1 PPD for past 60 years. Patient is interested in lung cancer screening and will be referred to our Pulmonary services. Patient reports good social support, has 8 siblings and states her depression has been well controlled on trazadone and lorazepam prn. She has also tried Celexa, Paxil, Wellbutrin and amitriptyline in the past. Patient used to follow [facility] in 2001 for depression. She denies following Mental support at this time and states she has close contact with her family who have been very supportive to her. Patient reports uncontrolled daily and constant significant pain has negatively affected her depressive states. Denies any suicidal ideation or hallucinations. Location: Lower back radiates to buttocks, hips, legs; neck, bilateral shoulders Duration: Chronic pain for many years, worsening since 2020 Characteristics of symptom or complaint: Pulsing, throbbing, pinching, aching, wrenching, stabbing,sharp, burning Aggravating or associated factors: Any movement, walking, standing, sitting, Relieving factors: Previously-Oxycodone, Tramadol; now-cannabis edible Treatment: PT for neck and shoulder, massage therapy [facility] Medical History Pancreatic cancer Basal cell carcinoma Hypertension Opiate analgesic contract exists Benzodiazepine dependence Chronic pain syndrome Degenerative disc disease, cervical Cervical disc herniation Nicotine dependence, cigarettes, uncomplicated Depression H/O pelvic mass Surgical History History of basal cell carcinoma excision History of pelvic surgery History of hysterectomy Family History Maternal Grandfather Lung cancer, Onset Age: 67 Social History Housing: House Alcohol intake: current Alcohol intake frequency: holidays/special occasions only Patient Tobacco Use Status: Former Tobacco user Tobacco use type: Cigarette Years Smoked: (onset 8yo, 1ppd x 60yrs, 50pyh) e-Cigarette/Vaping Use: Never Used Second Hand Smoke Exposure: Yes service: No Current occupational status: retired Cognitive needs: No Hearing needs: No Vision needs: Yes Review of Systems Const All systems reviewed & are unremarkable except as noted in HPI and below Physical Exam General: Appears afebrile. Alert and oriented. Mood and affect appropriate. Follows and participates in conversation appropriately. Respiratory effort is unlabored. No cough. Able to transition from sit to stand unassisted. Ambulates with bilaterally normal heel strike and toe off. Neck Neck: Yes normal visual inspection, Yes no lymphadenopathy, Yes supple, No anterior neck swelling, Yes no JVD, No prominent supraclavicular fat pad and No prominent dorsocervical fat pad Back/Spine/Pelvis Cervical Spine: No Lhermitte's sign positive, loss of normal cervical lordosis, cervical muscular tenderness, pain with cervical ROM, cervical spasm and No Cervical spine tenderness Thoracic/Lumbar Spine: thoracic and lumbar spine normal to inspection, No Thoracic/lumbar spine scar(s), Lasegue's sign negative, straight leg raise negative bilaterally, pain with thoraco-lumbar ROM, thoraco-lumbar ROM limited, No thoracic spinal tenderness and lumbar spinal tenderness at L4 and at L5 Skin Lesions: lesion noted (basal cell carcinoma) right nose nontender Psych Appearance: grossly normal Mental Status: mental status grossly normal Speech and movement: Normal speech and movement present Affect: normal affect Attitude: cooperative Thought process: Normal thought process present Thought content: Normal thought content present, suicidality, no hallucinations and Depressive thoughts present Insight: Good insight present (Psych) Judgement: Good judgement present (Psych) Results Reviewed Results Reviewed: MR CERVICAL SPINE WITHOUT CONTRAST 08/06/22 CLINICAL INFORMATION: 66-year-old with self-reported neck and bilateral shoulder pain and headaches. Cervical disc displacement. COMPARISON: 11/14/2012 MRI FINDINGS: Alignment: There is 2 mm of anterolisthesis at C3-C4 since the previous exam. There is 2 mm of retrolisthesis at C4-C5, stable in appearance. Otherwise normal alignment unchanged in appearance. Craniocervical Junction/C1-C2 Articulations: Intact and aligned. Visualized Intracranial Structures: Within normal limits. Vertebral Bodies: Normal height. Disc Spaces and Endplates: Severe disc space height loss at C4-C5 with Schmorl's nodes, disc desiccation and spondylosis similar to the previous exam. Mild disc space height loss at C3-C4, stable in appearance. Icgfoovt-im-kehfcf disc space height loss at C5-C6 and C6-C7 with disc desiccation, tiny Schmorl's nodes and mild degrees of spondylosis, stable in appearance. Bone Marrow: Minor type I degenerative marrow signal changes seen along the endplates at C4-C5, C5-C6 and C6-C7 with associated type II degenerative marrow signal changes. Type II marrow signal change seen most prominently at C4-C5, stable in appearance. No suspicious marrow replacing process or other bone marrow edema. C2-C3: Mild posterior disc osteophyte complex asymmetric to the right, stable in appearance with slight flattening of the dural sac on the right, unchanged, without cord impingement or canal stenosis. There is uncovertebral and facet arthrosis bilaterally, with progression of facet arthrosis on the left. There is moderate right and mild left-sided neural foraminal stenosis, progressed on the left and stable on the right. C3-C4: Broad-based central disc protrusion similar to previous study with mild flattening of the central dural sac with trace anterolisthesis at this level on the current exam without cord impingement or canal stenosis. There is uncovertebral spurring, left more than right, with mild right and severe left-sided facet arthrosis, progressed on the left. There is gtkjgtkv-hz-ajhjad left-sided and mild right-sided neural foraminal stenosis, largely unchanged. C4-C5: Mild retrolisthesis, with broad-based posterior disc osteophyte complex and a superimposed central disc herniation similar to the previous exam, with bdig-wu-onpbgbtr ventral cord impingement centrally with AP cord caliber of 5 mm, stable in appearance. There is associated moderate central spinal canal stenosis, stable in appearance. There is uncovertebral spurring and facet arthrosis bilaterally similar to the previous exam, with fvalzixr-id-jvfptp left-sided and asck-gg-mvgfvkix right-sided neural foraminal stenosis, stable in appearance. C5-C6: Broad-based disc osteophyte complex noted asymmetric to the right, similar to the previous exam, with effacement of the dural sac on the right without cord compression, stable in appearance. Mild central canal stenosis is stable. Bilateral uncovertebral spurring and facet arthropathy is similar to the previous exam with iepsxjng-zn-fzjjrq bilateral neural foraminal stenosis, stable in appearance. There is probable encroachment on the ventral root of C6 on the right, unchanged. C6-C7: Broad-based disc osteophyte complex with mild flattening of the ventral dural sac, stable in appearance, without cord impingement or canal stenosis. Bilateral uncovertebral spurring is again noted with mild right and moderate left-sided neural foraminal stenosis, stable in appearance. C7-T1: Small central to right paramedian disc osteophyte complex, stable in appearance, without significant facet arthrosis, canal or neuroforaminal stenosis. T1-T2: No disc herniation or canal stenosis. No significant DJD or neuroforaminal stenosis. Small perineural cysts noted bilaterally, stable in appearance. Spinal Cord: The cervical and visualized upper thoracic spinal cord is normal in signal intensity throughout, without focal lesion, edema or syrinx. Probable chronic spinal cord volume loss at C4-C5, unchanged. Extracranial Soft Tissues: 1.8 cm left thyroid lobe nodule is noted. Recommend follow-up thyroid ultrasound otherwise the visualized extraspinal soft tissues are grossly unremarkable in appearance. IMPRESSION: 1. Mild anterolisthesis at C3-C4 since the previous exam and mild retrolisthesis at C4-C5 stable in appearance. 2. Multilevel DDD and spondylosis largely stable in appearance with multilevel disc osteophyte complexes and disc herniations as described above largely similar in appearance to the previous exam with moderate central spinal canal stenosis at C4-C5 and mild central canal stenosis at C5-C6 stable in appearance. Siwa-tv-ihpzlsug ventral cord impingement at C4-C5 is stable with probable chronic spinal cord volume loss at this level unchanged. 3. Multilevel DJD as described above with progression of facet arthrosis on the left at C3-C4. Multilevel bilateral neural foraminal stenosis is largely stable in appearance as detailed by level above. 4. 1.8 cm left thyroid lobe nodule. Recommend follow-up thyroid ultrasound. CT lung screening 04/13/24 IMPRESSION: 1. No evidence of pulmonary malignancy. 2. Ifmz-gz-tkcgrxmg emphysema with bronchial thickening. 3. Other incidental findings as described above. 4. Lung-RADS Category S Negative. There are no clinically significant or potentially clinically significant findings not related to the lungs requiring urgent additional evaluation. Assessment & Plan Assessment & Plan (1) Lumbosacral spondylosis: Code(s): M47.817 - Spondylosis without myelopathy or radiculopathy, lumbosacral region Category: Medical (2) Chronic pain syndrome: Code(s): G89.4 - Chronic pain syndrome Category: Medical (3) Degenerative disc disease, cervical: Code(s): M50.30 - Other cervical disc degeneration, unspecified cervical region Category: Medical (4) Fibromyalgia: Code(s): M79.7 - Fibromyalgia Category: Medical (5) Opiate analgesic contract exists: Code(s): Z79.891 - custodial (current) use of opiate analgesic Category: Medical (6) Cervical spondylosis: Code(s): M47.812 - Spondylosis without myelopathy or radiculopathy, cervical region Category: Medical Plan Patient has shown accountability for her medication regimen and the pill count was accurate. There is no evidence of misuse, abuse or diversion at this time. [place] reviewed. Script sent for oxycodone 5 mg QID prn for moderate-severe pain with advanced day 12/22/24. Discussed with the patient the risks associated with benzodiazepine and opioid use. She is aware and verbalized an agreement to take the medications at least two hours apart. Patient has Narcan at home. All questions and concerns have been answered and patient agreed with the plan. Follow up in 4-5 weeks and sooner as needed. Medications: Changed From oxycodone Partial Fill upon patient request. 5 mg PO QID 14 days PRN 53 tabs 0RF pain G89.4 - Chronic pain syndrome, M47.817 - Spondylosis without myelopathy or radiculopathy, lumbosacral region, M50.30 - Other cervical disc degeneration, unspecified cervical region, Z79.891 - custodial (current) use of opiate analgesic To oxycodone Partial Fill upon patient request. 5 mg PO QID 30 days PRN 120 tabs 0RF pain G89.4 - Chronic pain syndrome, M47.817 - Spondylosis without myelopathy or radiculopathy, lumbosacral region, M50.30 - Other cervical disc degeneration, unspecified cervical region, Z79.891 - manager intermediate (current) use of opiate analgesic Coding Level of Care Code Est Pt Level 4 (12786) Complex EM visit Add On G2211 Diagnoses Lumbosacral spondylosis M47.817 Chronic pain syndrome G89.4 Degenerative disc disease, cervical M50.30 Fibromyalgia M79.7 Opiate analgesic contract exists Z79.891 Cervical spondylosis M47.812
[2024-12-17 09:20] VITALS: BP 156/76; PULSE 93; O2SAT 98; BMI 18.2
--- OUTSIDE RECORDS SUMMARY | 2024-12-17 09:46 | XMS_ITS | Clinical Summary ---
Author Organization [facility] it Address [address] [place] [address] Care Team Providers Care Office Clerk Assistant Name Role Phone Unavailable Primary Care Provider Unavailabl e Surgical History Surgery Date Site/Laterality Comments SKIN SURGERY PROCEDURE:SKIN SURGERY;COMMENT:face basil cell removal 1999 2006 SKIN CANCER EXCISION PROCEDURE:SKIN CANCER EXCISION BREAST SURGERY PROCEDURE:AUGMENTATION MAMMAPLASTY Medical History Medical History Date Comments IBS (irritable bowel syndrome) D X:IBS (irritable bowel syndrome) Constipation DX:Constipation Diverticulitis DX:Diverticuliti s Lower back pain DX:Lower back pa in Ovarian cancer (CMS/HCC) DX:Ovar earnest cancer (HCC) Pancreatic cancer (CMS/HCC) DX:P ancreatic cancer (HCC) Diverticulitis of colon DX:Diver ticulitis of colon HENLEY (dyspnea on exertion) DX:HENLEY (dyspnea on exertion) Sleep apnea, obstructive DX:Slee p apnea, obstructive;COMMENT:dx 2004 but does not use cpap Chronic fatigue DX:Chronic fatig ue Family History Medical History Relation Name Comments Hyperlipidemia Brother Brain cancer Cousin Breast cancer Paternal Grandmother Breast cancer Sister Relation Name Status Comments Brother Cousin Paternal Grandmother Sister Alive Social History Tobacco Use Types Packs/Day Years Used Date Smoking Tobacco: Every Day Smokeless Tobacco: Never Alcohol Use Standard Drinks/Week Comments Yes 14 (1 standard drink = 0.6 oz pu re alcohol) Comments Unknown Sex and Gender Information Value Date Recorded Sex Assigned at Not on file Legal Sex Female 7:47 PM EST Gender Identity Not on file Sexual Orientation Not on file Obstetrics History Plan of Treatment Health Maintenance Due Date Last Done Comments Breast Cancer Screening 1955 DTaP,Tdap,and Td Vaccines (1 - Tdap) 1974 Pneumococcal Vaccine: 50+ Ye ars (1 of 1 - PCV) 2005 Zoster Vaccines (1 of 2) 2005 COVID-19 Vaccine (2023-2 5 season) 2024 Influenza Vaccine (#1) 2024 RSV Immunization Patients 60 + Years Old (1 - 1-dose 75+ series) 2030 HIB Vaccines Aged Out No longer eligi ble based on patient's age to complete this topic HPV Vaccines Aged Out No longer eligi ble based on patient's age to complete this topic Hepatitis A Vaccines Aged Out No long er eligible based on patient's age to complete this topic Hepatitis B Vaccines Aged Out No long er eligible based on patient's age to complete this topic IPV Vaccines Aged Out No longer eligi ble based on patient's age to complete this topic MMR Vaccines Aged Out No longer eligi ble based on patient's age to complete this topic Meningococcal ACWY Vaccine Aged Out N o longer eligible based on patient's age to complete this topic Meningococcal B Vacine Aged Out No lo nger eligible based on patient's age to complete this topic RSV Immunization Patients Un chandu 20 months Aged Out No longer eligible b ased on patient's age to complete this topic Varicella Vaccines Aged Out No longer eligible based on patient's age to complete this topic
== END 2024-12-17 09:24 | disposition home or self-care (01) ==
PROVIDERS: PCP Internal Medicine; Visit Provider Nurse Practitioner Family
DX: G89.4 Chronic pain syndrome (principal); M47.817 Spondylosis without myelopathy or radiculopathy, lumbosacral region; M50.30 Other cervical disc degeneration, unspecified cervical region; Z79.891 Long term (current) use of opiate analgesic; M79.7 Fibromyalgia; M47.812 Spondylosis without myelopathy or radiculopathy, cervical region
CPT/HCPCS: 99214; G2211

== ENCOUNTER → 2024-12-17 09:09 | Outpatient (BNVA) | payer MEDICARE, OTHER, SELFPAY | PROVIDERS: PCP Internal Medicine; Visit Provider Nurse Practitioner Family | DX: Z51.81 Encounter for therapeutic drug level monitoring (principal); F11.20 Opioid dependence, uncomplicated; M47.817 Spondylosis without myelopathy or radiculopathy, lumbosacral region; M50.30 Other cervical disc degeneration, unspecified cervical region; M79.7 Fibromyalgia; M47.812 Spondylosis without myelopathy or radiculopathy, cervical region; G89.4 Chronic pain syndrome; Z79.891 Long term (current) use of opiate analgesic | CPT/HCPCS: 99212 ==

== ENCOUNTER 2025-01-21 09:07 | Outpatient (AMB) | payer MEDICARE, OTHER, SELFPAY ==
--- NOTE | 2025-01-21 09:08 | A.OFFVIS_ITS ---
Vital Signs 01/21/25 09:14 Height 5 ft 5 in Weight 106 lb 4 oz BMI 17.7 BP 151/73 H Blood Pressure Location Rt brachial Position Sitting Pulse 82 Pulse Source Pulse Oximeter Pulse Oximetry (%) 98 Oxygen Delivery Method Room Air Intake Visit Reasons: Pill Count Intake Note: Katerina comes in today for a pill count to oxycodone, patient should have 8 tablets and presents with 12 tablets which she last took today 01/21/25 at 6am. 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 Patient is supposed to have #8 pills, in her possession has #12 pills. This demonstrates a responsible attitude in regards to the medication regimen. Patient reports reasonable analgesia on her regimen of oxycodone 5 mg QID prn without noted side effects. She rates her pain 5/10 today. Denies any fever, chills, constipation, nausea, sedation, dizziness, or urinary retention. Patient was previously seen at [facility] for evaluation for right nose basal cell carcinoma on 10/09/24 and was offered MOHS surgery which patient declined. She states same surgery was offered 10 years ago and she is not interested to remove significant part of her nose. PRIOR: Patient is a 68 years old female with history of chronic pain syndrome, 3 herniated cervical discs, scoliosis, lumbar spondylosis, deteriorating lumbar spine, possible nerve damage from pelvic surgery in 2020, fibromyalgia, arthritis, chronic fatigue, pancreatic pre-cancerous mass (followed at [facility]), thyroid nodules (2 biopsies at [facility] 2022, both benign), right nose basal cell carcinoma (was offered a replacement cartilage from the ear-patient declined), depression presents today to discuss medical pain management. Patient reports history of a fall that herniated 3 cervical discs and was offered immediate surgery which patient declined. She was started on tramadol with advanced dose to 100 mg QID. By 2012, her neck and shoulder pain became unbearable and she was referred to Dr. Matt at [facility] and was deemed non-surgical and was offered physical therapy. During COVID outbreak in 2019, patient states her script for Tramadol was cancelled due to her missing a physical exam visit. She started cannabis use and trialled oxycodone 5 mg one tab per day without relief prescribed by her PCP. She notes opioid medication in the past for 15 years allowed her to be less symptomatic and more functional. Patient reports chronic neck and shoulder pain as well as lower back pain extending to her hips (left>right), buttocks and lower legs significantly affect her daily activities, functioning, mobility, sleep, mood, social and interactions. Any physical activity intensifies her pain which is worst at 1600 with pain rated at 8/10 and least severe around 0400 rated at 6/10. Patient has retired from [employer] in 2001 due to severe low back pain and fatigue. Denies any fever, bladder or bowel dysfunction, or saddle anesthesia. Patient is interested in interventional and medical management to manage her chronic pain generators. Patient denies alcohol or illicit drug use. Consumes 2-3 cups of coffee daily. S he continues to take edible marijuana grown at home and smokes 1 PPD for past 60 years. Patient is interested in lung cancer screening and will be referred to our Pulmonary services. Patient reports good social support, has 8 siblings and states her depression has been well controlled on trazadone and lorazepam prn. She has also tried Celexa, Paxil, Wellbutrin and amitriptyline in the past. Patient used to follow [facility] in 2001 for depression. She denies following Mental support at this time and states she has close contact with her family who have been very supportive to her. Patient reports uncontrolled daily and constant significant pain has negatively affected her depressive states. Denies any suicidal ideation or hallucinations. Location: Lower back radiates to buttocks, hips, legs; neck, bilateral shoulders Duration: Chronic pain for many years, worsening since 2020 Characteristics of symptom or complaint: Pulsing, throbbing, pinching, aching, wrenching, stabbing,sharp, burning Aggravating or associated factors: Any movement, walking, standing, sitting, Relieving factors: Previously-Oxycodone, Tramadol; now-cannabis edible Treatment: PT for neck and shoulder, massage therapy PFSH Medical History Pancreatic cancer Basal cell carcinoma Hypertension Opiate analgesic contract exists Benzodiazepine dependence Chronic pain syndrome Degenerative disc disease, cervical Cervical disc herniation Nicotine dependence, cigarettes, uncomplicated Depression H/O pelvic mass Surgical History History of basal cell carcinoma excision History of pelvic surgery History of hysterectomy Family History Maternal Grandfather Lung cancer, Onset Age: 67 Social History Housing: House Alcohol intake: current Alcohol intake frequency: holidays/special occasions only Patient Tobacco Use Status: Former Tobacco user Tobacco use type: Cigarette Years Smoked: (onset 8yo, 1ppd x 60yrs, 50pyh) e-Cigarette/Vaping Use: Never Used Second Hand Smoke Exposure: Yes service: No Current occupational status: retired Cognitive needs: No Hearing needs: No Vision needs: Yes Review of Systems Const All systems reviewed & are unremarkable except as noted in HPI and below Physical Exam General: Appears afebrile. Alert and oriented. Mood and affect appropriate. Follows and participates in conversation appropriately. Respiratory effort is unlabored. No cough. Able to transition from sit to stand unassisted. Ambulates with bilaterally normal heel strike and toe off. Skin Lesions: lesion noted (basal cell carcinoma) right nose nontender Psych Appearance: grossly normal Mental Status: mental status grossly normal Speech and movement: Normal speech and movement present Affect: normal affect Attitude: cooperative Thought process: Normal thought process present Thought content: Normal thought content present, suicidality, no hallucinations and Depressive thoughts present Insight: Good insight present (Psych) Judgement: Good judgement present (Psych) Assessment & Plan Assessment & Plan (1) Lumbosacral spondylosis: Code(s): M47.817 - Spondylosis without myelopathy or radiculopathy, lumbosacral region Category: Medical (2) Chronic pain syndrome: Code(s): G89.4 - Chronic pain syndrome Category: Medical (3) Degenerative disc disease, cervical: Code(s): M50.30 - Other cervical disc degeneration, unspecified cervical region Category: Medical (4) Fibromyalgia: Code(s): M79.7 - Fibromyalgia Category: Medical (5) Opiate analgesic contract exists: Code(s): 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 There is no evidence of misuse, abuse or diversion at this time. [employer] Information[employer] reviewed. Script sent for oxycodone 5 mg QID prn for moderate-severe pain with advanced day of 01/23/25. Discussed with the patient the risks associated with benzodiazepine and opioid use. Patient is aware and verbalized an agreement to take the medications at least two hours apart. Patient has Narcan at home. All questions and concerns have been answered and patient agreed with the plan. Follow up in one month and sooner as needed. Medications: Changed From oxycodone Partial Fill upon patient request. 5 mg PO QID 9 days PRN 36 tabs 0RF pain G89.4 - Chronic pain syndrome, M47.817 - Spondylosis without myelopathy or radiculopathy, lumbosacral region, M50.30 - Other cervical disc degeneration, unspecified cervical region, Z79.891 - long-term (current) use of opiate analgesic To oxycodone Partial Fill upon patient request. 5 mg PO QID 30 days PRN 120 tabs 0RF pain G89.4 - Chronic pain syndrome, M47.817 - Spondylosis without myelopathy or radiculopathy, lumbosacral region, M50.30 - Other cervical disc degeneration, unspecified cervical region, Z79.891 - long-term (current) use of opiate analgesic Coding Level of Care Code Est Pt Level 4 (65850) Complex EM visit Add On G2211 Diagnoses Lumbosacral spondylosis M47.817 Chronic pain syndrome G89.4 Degenerative disc disease, cervical M50.30 Fibromyalgia M79.7 Opiate analgesic contract exists Z79.891 Cervical spondylosis M47.812
[2025-01-21 09:14] VITALS: BP 151/73; PULSE 82; O2SAT 98; BMI 17.7
== END 2025-01-21 09:23 | disposition home or self-care (01) ==
PROVIDERS: PCP Internal Medicine; Visit Provider Nurse Practitioner Family
DX: M47.817 Spondylosis without myelopathy or radiculopathy, lumbosacral region (principal); G89.4 Chronic pain syndrome; M50.30 Other cervical disc degeneration, unspecified cervical region; M79.7 Fibromyalgia; Z79.891 Long term (current) use of opiate analgesic; M47.812 Spondylosis without myelopathy or radiculopathy, cervical region
CPT/HCPCS: 99214; G2211

== ENCOUNTER → 2025-01-21 09:07 | Outpatient (BNVA) | payer MEDICARE, OTHER, SELFPAY | PROVIDERS: PCP Internal Medicine; Visit Provider Nurse Practitioner Family | DX: G89.4 Chronic pain syndrome (principal); M47.817 Spondylosis without myelopathy or radiculopathy, lumbosacral region; M50.30 Other cervical disc degeneration, unspecified cervical region; Z51.81 Encounter for therapeutic drug level monitoring; Z79.891 Long term (current) use of opiate analgesic | CPT/HCPCS: 99212 ==

== ENCOUNTER 2025-02-25 08:51 | Outpatient (AMB) | payer MEDICARE, OTHER, SELFPAY ==
--- NOTE | 2025-02-25 08:55 | MHC.OFFVIS ---
Vital Signs 02/25/25 09:04 Height 5 ft 5 in Weight 103 lb 2 oz BMI 17.2 BP 153/75 H Blood Pressure Location Rt brachial Position Sitting Pulse 69 Pulse Source Pulse Oximeter Pulse Oximetry (%) 98 Oxygen Delivery Method Room Air Intake Visit Reasons: Pill count Intake Note: Katerina comes in today for a pill count to oxycodone, patient should have 112 tablets and presents with 112 tablets which she last took today 02/25/25 at 6am. 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 Patient is supposed to have #112 pills, in her possession has #112 pills. This demonstrates a responsible attitude in regards to the medication regimen. Patient reports reasonable analgesia on her regimen of oxycodone 5 mg QID prn without noted side effects. She rates her pain 2/10 today. Denies any fever, chills, constipation, nausea, sedation, dizziness, or urinary retention. Patient reports she is on plant based diet which helps her to avoid constipation. Patient was previously seen at [facility] for evaluation for right nose basal cell carcinoma on 10/09/24 and was offered MOHS surgery which patient declined. She states same surgery was offered 10 years ago and she is not interested to remove significant part of her nose. PRIOR: Patient is a 68 years old female with history of chronic pain syndrome, 3 herniated cervical discs, scoliosis, lumbar spondylosis, deteriorating lumbar spine, possible nerve damage from pelvic surgery in 2020, fibromyalgia, arthritis, chronic fatigue, pancreatic pre-cancerous mass (followed at [facility] and [facility]), thyroid nodules (2 biopsies [place] [facility] [place], both benign), right nose basal cell carcinoma (was offered a replacement cartilage from the ear-patient declined), depression presents today to discuss medical pain management. Patient reports history of a fall that herniated 3 cervical discs and was offered immediate surgery which patient declined. She was started on tramadol with advanced dose to 100 mg QID. By 2012, her neck and shoulder pain became unbearable and she was referred to Dr. Matt at [facility] and was deemed non-surgical and was offered physical therapy. During COVID outbreak in 2019, patient states her script for Tramadol was cancelled due to her missing a physical exam visit. She started cannabis use and trialled oxycodone 5 mg one tab per day without relief prescribed by her PCP. She notes opioid medication in the past for 15 years allowed her to be less symptomatic and more functional. Patient reports chronic neck and shoulder pain as well as lower back pain extending to her hips (left>right), buttocks and lower legs significantly affect her daily activities, functioning, mobility, sleep, mood, social and interactions. Any physical activity intensifies her pain which is worst at 1600 with pain rated at 8/10 and least severe around 0400 rated at 6/10. Patient has retired from [employer] in 2001 due to severe low back pain and fatigue. Denies any fever, bladder or bowel dysfunction, or saddle anesthesia. Patient is interested in interventional and medical management to manage her chronic pain generators. Patient denies alcohol or illicit drug use. Consumes 2-3 cups of coffee daily. She continues to take edible marijuana grown at home and smokes 1 PPD for past 60 years. Patient is interested in lung cancer screening and will be referred to our Pulmonary services. Patient reports good social support, has 8 siblings and states her depression has been well controlled on trazadone and lorazepam prn. She has also tried Celexa, Paxil, Wellbutrin and amitriptyline in the past. Patient used to follow [facility] in 2001 for depression. She denies following Mental support at this time and states she has close contact with her family who have been very supportive to her. Patient reports uncontrolled daily and constant significant pain has negatively affected her depressive states. Denies any suicidal ideation or hallucinations. Location: Lower back radiates to buttocks, hips, legs; neck, bilateral shoulders Duration: Chronic pain for many years, worsening since 2020 Characteristics of symptom or complaint: Pulsing, throbbing, pinching, aching, wrenching, stabbing,sharp, burning Aggravating or associated factors: Any movement, walking, standing, sitting, Relieving factors: Previously-Oxycodone, Tramadol; now-cannabis edible Treatment: PT for neck and shoulder, massage therapy [facility] Medical History Pancreatic cancer Basal cell carcinoma Hypertension Opiate analgesic contract exists Benzodiazepine dependence Chronic pain syndrome Degenerative disc disease, cervical Cervical disc herniation Nicotine dependence, cigarettes, uncomplicated Depression H/O pelvic mass Surgical History History of basal cell carcinoma excision History of pelvic surgery History of hysterectomy Family History Maternal Grandfather Lung cancer, Onset Age: 67 Social History Housing: House Alcohol intake: current Alcohol intake frequency: holidays/special occasions only Patient Tobacco Use Status: Former Tobacco user Tobacco use type: Cigarette Years Smoked: (onset 8yo, 1ppd x 60yrs, 50pyh) e-Cigarette/Vaping Use: Never Used Second Hand Smoke Exposure: Yes service: No Current occupational status: retired Cognitive needs: No Hearing needs: No Vision needs: Yes Review of Systems Const All systems reviewed & are unremarkable except as noted in HPI and below Physical Exam Vital Signs: Last Vital Signs Pulse 69 02/25/25 09:04 BP 153/75 H 02/25/25 09:04 Pulse Ox 98 02/25/25 09:04 Oxygen Delivery Method Room Air 02/25/25 09:04 BMI result Body Mass Index 17.2 General: Appears afebrile. Alert and oriented. Mood and affect appropriate. Follows and participates in conversation appropriately. Respiratory effort is unlabored. No cough. Able to transition from sit to stand unassisted. Ambulates with bilaterally normal heel strike and toe off. Skin Lesions: lesion noted (basal cell carcinoma) right nose nontender Psych Appearance: grossly normal and well kempt Mental Status: mental status grossly normal Speech and movement: Normal speech and movement present and Clear speech present Affect: normal affect Attitude: cooperative Thought process: Normal thought process present Thought content: Normal thought content present, suicidality (none), no hallucinations and No Depressive thoughts present Insight: Good insight present (Psych) Judgement: Good judgement present (Psych) Results Reviewed Results Reviewed: No imaging reports are available for review. Assessment & Plan Assessment & Plan (1) Lumbosacral spondylosis: Code(s): M47.817 - Spondylosis without myelopathy or radiculopathy, lumbosacral region Category: Medical (2) Chronic pain syndrome: Code(s): G89.4 - Chronic pain syndrome Category: Medical (3) Degenerative disc disease, cervical: Code(s): M50.30 - Other cervical disc degeneration, unspecified cervical region Category: Medical (4) Fibromyalgia: Code(s): M79.7 - Fibromyalgia Category: Medical (5) Opiate analgesic contract exists: Code(s): Z79.891 - [facility] (current) use of opiate analgesic Category: Medical (6) Cervical spondylosis: Code(s): M47.812 - Spondylosis without myelopathy or radiculopathy, cervical region Category: Medical Plan Patient has shown accountability for her medication regimen and the pill count was accurate. There is no evidence of misuse, abuse or diversion at this time. [employer] reviewed. Script sent for oxycodone 5 mg QID prn for moderate-severe pain with advanced day of 03/24/25. Discussed with the patient the risks associated with benzodiazepine and opioid use. Patient is aware and verbalized an agreement to take the medications at least two hours apart. Patient has Narcan at home. All questions and concerns have been answered and patient agreed with the plan. Follow up in 4-5 weeks and sooner as needed. Medications: Refilled oxycodone Partial Fill upon patient request. 5 mg PO QID 30 days PRN 120 tabs 0RF pain G89.4 - Chronic pain syndrome, M47.817 - Spondylosis without myelopathy or radiculopathy, lumbosacral region, M50.30 - Other cervical disc degeneration, unspecified cervical region, Z79.891 - [facility] (current) use of opiate analgesic Coding Level of Care Code Est Pt Level 4 (28255) Complex EM visit Add On G2211 Diagnoses Lumbosacral spondylosis M47.817 Chronic pain syndrome G89.4 Degenerative disc disease, cervical M50.30 Fibromyalgia M79.7 Opiate analgesic contract exists Z79.891 Cervical spondylosis M47.812
[2025-02-25 09:04] VITALS: BP 153/75; PULSE 69; O2SAT 98; BMI 17.2
--- OUTSIDE RECORDS SUMMARY | 2025-02-25 09:19 | XMS_ITS | Clinical Summary ---
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 0 04/17/2021 Active LORazepam (ATIVAN) 1 MG tablet Take 1 tablet (1 mg total) by mouth 3 (three) times a day as needed. for anxiety 40 tablet 0 05/19/2021 Active modafinil (PROVIGIL) 200 MG tablet Take 200 mg by mouth daily. 0 Active docusate sodium 100 MG CAPS Take 100 mg by mouth daily. 10 capsule 0 06/03/2021 Active HYDROmorphone (DILAUDID) 2 MG tablet Take 1 tablet (2 mg total) by mouth every 4 (four) hours as needed. 40 tablet 0 06/03/2021 Active lidocaine (LIDODERM) 5 % Place 1 patch onto the skin daily. Remove & Discard patch within 12 hours or as directed by 30 patch 0 06/04/2021 Active simethicone (MYLICON) 80 MG chewable tablet Chew 1 tablet (80 mg total) by mouth every 6 (six) hours. 30 tablet 0 06/04/2021 Active Active Problems Problem Noted Date Diagnosed Date Status post OSEAS-BSO 06/01/2021 Pelvic mass in female 05/19/2021 Generalized abdominal or pelvic swelling or mass or lump 05/15/2021 Family History Medical History Relation Name Comments Hyperlipidemia Brother Brain cancer Cousin Breast cancer Paternal Grandmother Breast cancer Sister Relation Name Status Comments Brother Cousin Paternal Grandmother Sister Alive Social History Tobacco Use Types Packs/Day Years Used Date Smoking Tobacco: Every Day Smokeless Tobacco: Never Alcohol Use Standard Drinks/Week Comments Yes 14 (1 standard drink = 0.6 oz pu re alcohol) Sex and Gender Information Value Date Recorded Sex Assigned at Female 05/14/2021 8:11 AM EDT Gender Identity Not on file Sexual Orientation Not on file Job Start Date Occupation Industry Not on file Not on file Not on file Last Filed Vital Signs Vital Sign Reading Time Taken Comments Blood Pressure 123/82 06/04/2021 4:21 PM EDT Pulse 72 06/04/2021 4:21 PM EDT Temperature 36.4 ??C (97.6 ??F) 06/04/2021 12:19 PM E DT Respiratory Rate 16 06/04/2021 12:19 PM EDT Oxygen Saturation 100% 06/04/2021 4:21 PM EDT Inhaled Oxygen Concentration - - Weight 53.5 kg (118 lb) 06/01/2021 6:29 AM EDT Height 170.2 cm (5' 7 ) 06/01/2021 6:29 AM EDT Body Mass Index 18.48 06/01/2021 6:29 AM EDT Plan of Treatment Health Maintenance Due Date Last Done Comments Hepatitis C Screening 1955 COVID-19 Vaccine (#1) 02/21/1956 Pneumococcal Vaccine (1 of 2 - PCV) 1961 Depression Screening 1967 Preventative Health Evaluation 1973 Tobacco Cessation Counseling 1973 DTap / Tdap / Td (1 - Tdap) 1974 Colon Cancer Screening (Colonoscopy) 2000 Breast Cancer Screening (Mammogram) 2005 Shingrix-Zoster Vaccine (1 of 2) 2005 Fall Risk Assessment 2020 Osteoporosis Screening (DEXA Scan) 2020 Influenza Vaccine (#1) 2024 RSV Adult > 60+ Yrs or Pregn ant (1 - 1-dose 75+ series) 2030 Hepatitis B Vaccines Aged Out No long er eligible based on patient's age to complete this topic RSV Ped < 20 months Aged Out No longe r eligible based on patient's age to complete this topic Medical Devices Explanted Type Area Barrel Charrer Helper Device Identifier Shelf Expiration Date Model / Serial / Lot Cath Polyuret Open Tp [id number] [employer] [id number] - [id number] Explanted:Qty: 1 on 06/01/2021 by Chong Alberto DO at [facility] Left: Ureter [employer] 01/20/2024 [id number] / / [id number] Description:Stents confirmed intact by Dr. Alberto Cath Polyuret Open Tp [id number] [employer] [id number] - [id number] Explanted:Qty: 1 on 06/01/2021 by Chong Alebrto DO at [facility] and Med Right: Ureter [employer] 01/20/2024 [id number] / / [id number] Description:Stents confirmed intact by Dr. Alberto Advance Directives For more information, please contact: [phone] Latest Code Status on File Code Status Date Activated Date Inactivated Comments Full Code 06/01/2021 10:51 AM 06/04/2021 10:45 PM This code status was ascertained in the following way: discussion with patient .
== END 2025-02-25 09:21 | disposition home or self-care (01) ==
LOC: HO.PMC 08:52
PROVIDERS: PCP Internal Medicine; Visit Provider Nurse Practitioner Family
DX: M47.817 Spondylosis without myelopathy or radiculopathy, lumbosacral region (principal); G89.4 Chronic pain syndrome; M50.30 Other cervical disc degeneration, unspecified cervical region; M79.7 Fibromyalgia; Z79.891 Long term (current) use of opiate analgesic; M47.812 Spondylosis without myelopathy or radiculopathy, cervical region
CPT/HCPCS: 99214; G2211

== ENCOUNTER → 2025-02-25 08:51 | Outpatient (BNVA) | payer MEDICARE, OTHER, SELFPAY | PROVIDERS: PCP Internal Medicine; Visit Provider Nurse Practitioner Family | DX: Z51.81 Encounter for therapeutic drug level monitoring (principal); M47.817 Spondylosis without myelopathy or radiculopathy, lumbosacral region; M50.30 Other cervical disc degeneration, unspecified cervical region; M79.7 Fibromyalgia; M47.812 Spondylosis without myelopathy or radiculopathy, cervical region; G89.4 Chronic pain syndrome; Z79.891 Long term (current) use of opiate analgesic | CPT/HCPCS: 99212 ==

== ENCOUNTER 2025-02-28 09:18 | Outpatient (AMB) | payer MEDICARE, OTHER, SELFPAY ==
--- NOTE | 2025-02-28 09:28 | MHC.PC.OV ---
Vital Signs 02/28/25 09:29 Height 5 ft 5 in Weight 105 lb 6 oz BMI 17.5 BP 130/68 Blood Pressure Location Lt brachial Position Sitting Pulse 71 Pulse Source Pulse Oximeter Temp 97.3 F Temp Source Temporal Artery Scan Pulse Oximetry (%) 97 Oxygen Delivery Method Room Air Intake Visit Reasons: Annual Exam - see comments Intake Note: Patient is here today for a physical. Cabinet Worker Required: No Director Of Psychology: Not Required per policy Accompanied by: Self / Same As Patient Allergies Wssxwur-JGL-ZuI Reductase Inhibitor Allergy (Intermediate, Verified 02/28/25 09:57) elevated liver enzymes Medication List - Last Reconciled 02/28/25 by Lucas Felton MD [cannabis edibles 25 mg PO .qd PRN] lorazepam 1 mg PO DAILY PRN 28 days naloxone 4 mg/actuation (Narcan) 4 mg intranasal Q2M PRN oxycodone 5 mg PO QID PRN 30 days trazodone 50 mg PO BEDTIME PRN Tobacco use date assessed: 02/28/25 Fall risk assessment: No Falls in past year Last assessed Fall Risk: 02/28/25 Dental Screening Dental Screen Date: 02/28/25 Did you have a dental visit in the last 12 months?: No Did you have a dental problem in the last 6 months where you did not have access to dental care?: No Was dental information given to patient?: Patient has dentist HPI Annual Exam - see comments HPI Details 69 yr old female presents for an annual physical [facility] Medical History Pancreatic cancer Basal cell carcinoma Hypertension Opiate analgesic contract exists Benzodiazepine dependence Chronic pain syndrome Degenerative disc disease, cervical Cervical disc herniation Nicotine dependence, cigarettes, uncomplicated Depression H/O pelvic mass Surgical History History of basal cell carcinoma excision History of pelvic surgery History of hysterectomy Family History Maternal Grandfather Lung cancer, Onset Age: 67 Social History Housing: House Alcohol intake: current Alcohol intake frequency: holidays/special occasions only Patient Tobacco Use Status: Former Tobacco user Tobacco use type: Cigarette Years Smoked: (onset 8yo, 1ppd x 60yrs, 50pyh) e-Cigarette/Vaping Use: Never Used Second Hand Smoke Exposure: Yes service: No Current occupational status: retired Cognitive needs: No Hearing needs: No Vision needs: Yes (Glasses) Questionnaire PHQ-9 Over the last 2 weeks, how often have you been bothered by any of the following problems? 1. Little interest or pleasure in doing things: not at all 2. Feeling down, depressed, or hopeless: not at all 3. Trouble falling or staying asleep, or sleeping too much: not at all 4. Feeling tired or having little energy: nearly every day 5. Poor appetite or overeating: not at all 6. Feeling bad about yourself - or that you are a failure or have let yourself or your family down: not at all 7. Trouble concentrating on things, such as reading the newspaper or watching television: not at all 8. Moving or speaking so slowly that other people could have noticed. Or the opposite - being so fidgety or restless that you have been moving around a lot more than usual: not at all 9. Thoughts that you would be better off or of hurting yourself in some way: not at all Total score: 3 Depression Screening Interpretation: Negative Depression Screening Done: Yes Source: Developed by Drs. Anmol Nuno, Katie Baez, Jose Garay and colleagues, with an educational susana from [employer] Thrive Questionnaire Date Thrive assessed: 02/24/25 I am a: Patient What is your living situation today?: I have a steady place to live Within the past 12 months, did the food you bought not last and you didn't have the money to get more?: Never true Within the past 12 months, did you worry whether your food would run out before you got money to buy more?: Never true Do you have trouble paying for medicines?: No Do you have trouble getting transportation to medical appointments?: No Do you have trouble paying your heating and electricity bill?: No Do you have trouble taking care of your child, family member or friend?: No Do you have trouble with day-to-day activities such as bathing, preparing meals, shopping, managing finances, etc.?: No Are you currently unemployed and looking for a job?: No Are you interested in more education?: No Please select the resources that you would like help with: None Currently or been in a relationship where the following occur: No concerns reported and I choose not to answer THRIVE Score: 0 AUDIT C Alcohol Use Questionnaire (AUDIT-C) 1. How often do you have a drink containing alcohol?: Never Total Score: 0 JAMEEL-7 AMB Questionnaire JAMEEL-7 Date JAMEEL - 7 assessed: 02/28/25 Feeling nervous, anxious, or on edge: 1 = Several days Not being able to stop or control worryin = Several days Worrying too much about different things: 1 = Several days Trouble relaxin = Several days Being so restless that it is hard to sit still: 0 = Not at all Becoming easily annoyed or irritable: 1 = Several days Feeling afraid as if something awful might happen: 0 = Not at all Total JAMEEL-7 score (0-4 normal; 5-9 mild; 10-14 moderate; 15-21 severe): 5 Source: Developed by Drs. Anmol Nuno, Katie Baez, Jose Garay and colleagues, with an educational susana from [employer] Physical exam (Primary Care) Vital Signs: Last Vital Signs Temp 97.3 F 02/28/25 09:29 Pulse 71 02/28/25 09:29 BP 130/68 02/28/25 09:29 Pulse Ox 97 02/28/25 09:29 Oxygen Delivery Method Room Air 02/28/25 09:29 Care Plan Goal for BP management: BP in range. BMI result Body Mass Index 17.5 Tobacco/Smoking Status: Tobacco use Status Tobacco use date assessed 02/28/25 02/28/25 09:33 Patient Tobacco Use Status Former Tobacco user 02/28/25 09:33 Tobacco use type Cigarette 02/28/25 09:33 e-Cigarette/Vaping Use Never Used 02/28/25 09:33 PHQ-9: PHQ-9 Score PHQ-9: Total score 3 02/28/25 09:33 Depression Screening Interpretation: Negative Thrive Assessment: Date of Thrive Assessment Date Thrive assessed 02/24/25 02/28/25 09:33 Currently or been in a relationship where the following occur: No concerns reported and I choose not to answer Advance Care Planning discussion: Exists, not on file Date of discussion: 02/28/25 Who was present: Patient. 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 (2) Pancreatic cancer: Comment: (intraductal papillary neoplasm of the pancreas - dx 2021) Code(s): C25.9 - Malignant neoplasm of pancreas, unspecified Category: Medical Qualifiers: Pancreatic malignancy location: pancreatic duct Qualified Code(s): C25.3 - Malignant neoplasm of pancreatic duct Plan: This was not discussed during this OV (3) Basal cell carcinoma: Code(s): C44.91 - Basal cell carcinoma of skin, unspecified Category: Medical Plan: Understands the diagnosis, understands that untreated it can spread causing more deformity. (4) Annual physical exam: Code(s): Z00.00 - Encounter for general adult medical examination without abnormal findings Plan: BW ordered. Declines mammogram and colonoscopy Plan History of Present Illness The patient is a 69-year-old female presenting for an annual physical examination. She has a diagnosis of skin cancer on her nose confirmed by a biopsy. The proposed treatment involved surgical removal of a part of her nose with reconstruction using tissue from her ear, which the patient opted against due to personal reasons. The patient sought alternative treatments like radiation but was informed it was not a viable option. Social History - Retired for 20+ years - No alcohol consumption - No smoking history - Has a designated healthcare proxy, her sister Kandace, who is a Physician Surg Physician Asst Review of Systems - Dermatological: Reports presence of skin cancer on the nose - Gastrointestinal: Denies any problems with bowel movements - Hematological: Denies any other health concerns Physical Exam General: Cooperative and healthy appearing Nutritional Appearance: Well nourished Orientation/consciousness: Patient oriented x3 Limitations: No limitations Head: Normal to inspection General: Appearance normal, both eyes and all related structures Neck: Normal visual inspection Chest: Normal palpation of entire chest wall Respiratory: N ormal respiratory effort Neurology: Patient oriented x3, no neurological deficits noted. Results Plan 1. Skin Cancer Of The Nose - Patient opted out of surgical treatment. - Alternative treatments not feasible per dermatology. - Routine inflammation blood work ordered. - Patient to be observant of changes, with no dermatology follow-up scheduled at this time. Discussion Notes During the consultation, we agreed to proceed with blood work to assess thyroid and kidney function, along with inflammatory markers like sed rate and CRP. The patient was aware that despite her preference for non-surgical options, the dermatology team did not recommend radiation therapy. We had a detailed discussion about her conditions and she has a good understanding of her current management plan. No new medications are needed, and future results from the lab work will be communicated accordingly. Patient Instructions - Get blood drawn tomorrow after fasting. - I will call with lab results. - Observe for any changes in skin condition and report if necessary. - Remember to maintain healthcare proxy information updated. - No need for immediate dermatology follow-up if no changes occur.
[2025-02-28 09:29] VITALS: BP 130/68; PULSE 71; TEMP 36.3; O2SAT 97; BMI 17.5
--- OUTSIDE RECORDS SUMMARY | 2025-02-28 09:55 | XMS_ITS | Clinical Summary ---
Author Organization [facility] it Address [address] [place] [address] Care Team Providers Care Operations Assistant Name Role Phone Unavailable Primary Care [...] pain DX:Lower back pa in Ovarian cancer (CMS/HCC V24, CMS/HCC V28) DX:Ovarian cancer (HCC) Pancreatic cancer (CMS/HCC V 24, CMS/HCC V28) DX:Pancreatic cancer (HCC) Diverticulitis of colon DX:Diver ticulitis [...] Vaccine (2023-2 5 season) 2024 Influenza Vaccine (Season Ended) 2025 RSV Immunization Adult Patie nts (1 - 1-dose 75+ series) 2030 HIB [...] age to complete this topic Meningococcal B Vaccine Aged Out No l onger eligible based on patient's age to complete this topic RSV Immunization Patients Un chandu 20 months Aged Out No longer eligible b ased on patient's age to complete this topic Varicella Vaccines Aged Out No longer eligible based on patient's age to complete this topic
== END 2025-02-28 09:55 | disposition home or self-care (01) ==
LOC: HO.HMCH 09:19
PROVIDERS: PCP Internal Medicine; Visit Provider Internal Medicine
DX: Z00.00 Encounter for general adult medical examination without abnormal findings (principal); F17.210 Nicotine dependence, cigarettes, uncomplicated; C25.3 Malignant neoplasm of pancreatic duct; C44.91 Basal cell carcinoma of skin, unspecified

== ENCOUNTER → 2025-02-28 09:18 | Outpatient (BNVA) | payer MEDICARE, OTHER, SELFPAY | PROVIDERS: PCP Internal Medicine; Visit Provider Internal Medicine | DX: Z00.00 Encounter for general adult medical examination without abnormal findings (principal); C44.91 Basal cell carcinoma of skin, unspecified; C25.3 Malignant neoplasm of pancreatic duct; F17.210 Nicotine dependence, cigarettes, uncomplicated; Z71.6 Tobacco abuse counseling | CPT/HCPCS: 99397 ==

== ENCOUNTER 2025-03-01 06:51 | Outpatient (REF) | payer MEDICARE, OTHER, SELFPAY ==
--- OUTSIDE RECORDS SUMMARY | 2025-03-01 06:54 | XMS_ITS | Clinical Summary ---
Author Organization [facility] it Address [address] [place] [address] Care Team Providers Care Animal Shelter Manager Name Role Phone Unavailable Primary Care Provider [...]
--- OUTSIDE RECORDS SUMMARY | 2025-03-01 06:54 | XMS_ITS | Clinical Summary ---
Author Organization [facility] Address [address] [place] [id number] Care Team Providers Care National Coverage Specialist Name Role Phone Unavailable Primary Care Provider [...] this topic Medical Devices Explanted Type Area Lumber Bearer Device Identifier Shelf Expiration Date Model / Serial / Lot Cath Polyuret Open Tp [id number] [employer] [id number] - [id number] Explanted:Qty: 1 on 06/01/2021 by Chong Alberto DO at [facility] and [facility] Left: Ureter [employer] 01/20/2024 [id number] / / [id number] Description:Stents confirmed intact by Dr. Alberto Cath Polyuret Open Tp [id number] [employer] [id number] - [id number] Explanted:Qty: 1 on 06/01/2021 by Chong Alberto DO at [facility] and Med Right: Ureter [employer] 01/20/2024 [id number] / / [id number] Description:Stents confirmed intact by Dr. Alberto Advance Directives For more information, please contact: [phone] Latest Code Status on File Code Status Date Activated Date Inactivated Comments Full Code 06/01/2021 10:51 AM 06/04/2021 10:45 PM This code status was ascertained in the following way: discussion with patient .
[2025-03-01 07:41] LABS: Hematocrit 43.1 % (37.0-47.0); Hemoglobin 14.3 g/dl (12.0-16.0); Mean Corpuscular HGB Conc 33.2 g/dl (31.0-35.0); Mean Corpuscular Hemoglobin 33.8 pg (27.0-33.0); Mean Corpuscular Volume 101.9 fL (80.0-98.0); Mean Platelet Volume 11.7 fL (9.4-12.3); Platelet Count 185 X10*3/uL (160-400); Red Blood Count 4.23 X10*6/uL (4.20-5.50); Red Cell Distribution Width 12.1 % (11.0-16.0); White Blood Count 5.6 X10*3/uL (4.8-10.8)
[2025-03-01 07:56] LABS: Appearance Urine Clear; Color Urine Dark Yellow; Glucose Urine UA Negative (Negative); Leukocyte Esterase Urine Small (1+) (Negative); Nitrite Urine Negative (Negative); PH 7.5 (5.0-9.0); UMIC TRIGGER UA YES; Urine Blood Negative (Negative); Urine Ketones Trace mg/dL (Negative); Urine Protein Trace mg/dL (Neg-Trace)
[2025-03-01 08:18] LABS: Alanine Aminotransferase 31 U/L (0-31); Albumin Level 4.2 g/dL (3.5-5.0); Alkaline Phosphatase 58 U/L (39-117); Anion Gap 14 (12-20); Aspartate Amino Transferase 27 U/L (5-31); Bilirubin Direct 0.1 mg/dL (0.0-0.5); Bilirubin Total 0.4 mg/dL (0.0-1.0); Blood Urea Nitrogen 14 mg/dL (9-16); C Reactive Protein < 0.10 mg/dL (< or = 0.50); Calcium 9.5 mg/dL (8.4-10.2); Carbon Dioxide 26 mmol/L (22-29); Chloride 108 mmol/L (96-108); Cholesterol 183 mg/dL (<200); Estimated Glomerular Filt Rate > 60; Glucose Random 98 mg/dL (60-115); HDL Cholesterol 63 mg/dL (>40); LDL Cholesterol Calculated 102 mg/dL (<100); Sodium 143 mmol/L (135-145); Total Protein 6.6 g/dL (6.5-8.0); Triglycerides 90 mg/dL (<150)
[2025-03-01 08:35] LABS: Thyroid Stimulating Hormone 0.71 uIU/mL (0.32-4.0)
[2025-03-01 08:43] LABS: Bacteria Urine 1+ (None Seen); Hyaline Casts Urine 0-2 /LPF (0-2); RBC Urine 0-2 /HPF (0-2)
== END 2025-03-01 06:52 | disposition home or self-care (01) ==
LOC: HO.LAB 06:51
PROVIDERS: PCP Internal Medicine; Visit Provider Internal Medicine
DX: C25.3 Malignant neoplasm of pancreatic duct (principal); C44.91 Basal cell carcinoma of skin, unspecified; Z13.6 Encounter for screening for cardiovascular disorders
CPT/HCPCS: 36415; 80048; 80061; 80076; 81001; 81003; 84443; 85027; 86140

== ENCOUNTER 2025-04-01 08:51 | Outpatient (AMB) | payer MEDICARE, OTHER, SELFPAY ==
--- NOTE | 2025-04-01 08:53 | A.OFFVIS_ITS ---
Vital Signs 04/01/25 09:01 Height 5 ft 5 in Weight 105 lb 8 oz BMI 17.6 BP 157/74 H Blood Pressure Location Rt brachial Position Sitting Pulse 64 Pulse Source Pulse Oximeter Pulse Oximetry (%) 100 Oxygen Delivery Method Room Air Intake Visit Reasons: PILL COUNT Intake Note: Katerina comes in today for a pill count to oxycodone, patient should have 88 tablets and presents with 90 tablets which she last took 2 tablets today 04/01/25 at 5:30am. Pain today 3/10. Patient will also go for a random UDS today, aware that she will need to go to the lab on the first floor of this building today 04/01/25 before 12pm. Allergies Nhjvjdp-LRX-LiD Reductase Inhibitor Allergy (Intermediate, Verified 04/01/25 09:01) elevated liver enzymes Medication List - Last Reviewed 04/01/25 by Julianne Torrez [cannabis edibles 25 mg PO .qd PRN] lorazepam 1 mg PO DAILY PRN 28 days naloxone 4 mg/actuation (Narcan) 4 mg intranasal Q2M PRN oxycodone 5 mg PO QID PRN 30 days trazodone 50 mg PO BEDTIME PRN HPI Comments Details: Patient presents today for a pill count. Patient is supposed to have pills #90, in her possession has #90 pills. This demonstrates a responsible attitude in regards to the medication regimen. Patient reports adequate analgesia on current regime of oxycodone 5 mg QID prn without noted side effects. She rates her pain 3/10 today in lower back and both shoulders. Denies any fever, chills, constipation, nausea, sedation, dizziness, or urinary retention. She continues plant based diet which helps her to avoid constipation. Patient was previously seen at [facility] for evaluation for right nose basal cell carcinoma on 10/09/24 and was offered MOHS surgery which patient declined. She states same surgery was offered 10 years ago and she is not interested to remove significant part of her nose. PRIOR: Patient is a 68 years old female with history of chronic pain syndrome, 3 herniated cervical discs, scoliosis, lumbar spondylosis, deteriorating lumbar spine, possible nerve damage from pelvic surgery in 2020, fibromyalgia, arthritis, chronic fatigue, pancreatic pre-cancerous mass (followed at [facility] and [facility]), thyroid nodules (2 biopsies at [facility] 2023, both benign), right nose basal cell carcinoma (was offered a replacement cartilage from the ear-patient declined), depression presents today to discuss medical pain management. Patient reports history of a fall that herniated 3 cervical discs and was offered immediate surgery which patient declined. She was started on tramadol with advanced dose to 100 mg QID. By 2012, her neck and shoulder pain became unbearable and she was referred to Dr. Matt at [facility] and was deemed non-surgical and was offered physical therapy. During COVID outbreak in 2019, patient states her script for Tramadol was cancelled due to her missing a physical exam visit. She started cannabis use and trialled oxycodone 5 mg one tab per day without relief prescribed by her PCP. She notes opioid medication in the past for 15 years allowed her to be less symptomatic and more functional. Patient reports chronic neck and shoulder pain as well as lower back pain extending to her hips (left>right), buttocks and lower legs significantly affect her daily activities, functioning, mobility, sleep, mood, social and interactions. Any physical activity intensifies her pain which is worst at 1600 with pain rated at 8/10 and least severe around 0400 rated at 6/10. Patient has retired from [employer] in 2001 due to severe low back pain and fatigue. Denies any fever, bladder or bowel dysfunction, or saddle anesthesia. Patient is interested in interventional and medical management to manage her chronic pain generators. Patient denies alcohol or illicit drug use. Consumes 2-3 cups of coffee daily. She continues to take edible marijuana grown at home and smokes 1 PPD for past 60 years. Patient is interested in lung cancer screening and will be referred to our Pulmonary services. Patient reports good social support, has 8 siblings and states her depression has been well controlled on trazadone and lorazepam prn. She has also tried Celexa, Paxil, Wellbutrin and amitriptyline in the past. Patient used to follow [facility] in 2001 for depression. She denies following Mental support at this time and states she has close contact with her family who have been very supportive to her. Patient reports uncontrolled daily and constant significant pain has negatively affected her depressive states. Denies any suicidal ideation or hallucinations. Location: Lower back radiates to buttocks, hips, legs; neck, bilateral shoulders Duration: Chronic pain for many years, worsening since 2021 Characteristics of symptom or complaint: Pulsing, throbbing, pinching, aching, wrenching, stabbing,sharp, burning Aggravating or associated factors: Any movement, walking, standing, sitting, Relieving factors: Previously-Oxycodone, Tramadol; now-cannabis edible Treatment: PT for neck and shoulder, massage therapy [facility] Medical History Pancreatic cancer Basal cell carcinoma Hypertension Opiate analgesic contract exists Benzodiazepine dependence Chronic pain syndrome Degenerative disc disease, cervical Cervical disc herniation Nicotine dependence, cigarettes, uncomplicated Depression H/O pelvic mass Surgical History History of basal cell carcinoma excision History of pelvic surgery History of hysterectomy Family History Maternal Grandfather Lung cancer, Onset Age: 67 Social History Housing: House Alcohol intake: current Alcohol intake frequency: holidays/special occasions only Patient Tobacco Use Status: Former Tobacco user Tobacco use type: Cigarette Years Smoked: (onset 8yo, 1ppd x 60yrs, 50pyh) e-Cigarette/Vaping Use: Never Used Second Hand Smoke Exposure: Yes service: No Current occupational status: retired Cognitive needs: No Hearing needs: No Vision needs: Yes (Glasses) Review of Systems Const All systems reviewed & are unremarkable except as noted in HPI and below Physical Exam General: Appears afebrile. Alert and oriented. Mood and affect appropriate. Follows and participates in conversation appropriately. Respiratory effort is unlabored. No cough. Able to transition from sit to stand unassisted. Ambulates with bilaterally normal heel strike and toe off. Resp Effort & Inspection: normal respiratory effort, able to speak in complete sentences, no cough, not labored, no respiratory distress and symmetric chest movement Skin Lesions: lesion noted (basal cell carcinoma) right nose nontender Extrem General: Yes full ROM, Yes capillary refill normal, Yes no clubbing, cyanosis or edema and Yes no calf tenderness Psych Appearance: grossly normal and well kempt Mental Status: mental status grossly normal Speech and movement: Normal speech and movement present and Clear speech present Affect: normal affect Attitude: cooperative Thought process: Normal thought process present Thought content: Normal thought content present, suicidality (none), no hallucinations and No Depressive thoughts present Insight: Good insight present (Psych) Judgement: Good judgement present (Psych) Results Reviewed Results Reviewed: No imaging reports are available for review. Assessment & Plan Assessment & Plan (1) Lumbosacral spondylosis: Code(s): M47.817 - Spondylosis without myelopathy or radiculopathy, lumbosacral region Category: Medical (2) Chronic pain syndrome: Code(s): G89.4 - Chronic pain syndrome Category: Medical (3) Degenerative disc disease, cervical: Code(s): M50.30 - Other cervical disc degeneration, unspecified cervical region Category: Medical (4) Fibromyalgia: Code(s): M79.7 - Fibromyalgia Category: Medical (5) Opiate analgesic contract exists: Code(s): Z79.891 - intermediate teacher (current) use of opiate analgesic Category: Medical (6) Cervical spondylosis: Code(s): M47.812 - Spondylosis without myelopathy or radiculopathy, cervical region Category: Medical (7) Basal cell carcinoma: Code(s): C44.91 - Basal cell carcinoma of skin, unspecified Category: Medical Plan Patient has shown accountability for her medication regimen and the pill count was accurate. There is no evidence of misuse, abuse or diversion at this time. Advanced Catheter Therapies reviewed. Will obtain random UDS today. Script sent for oxycodone 5 mg QID prn for moderate-severe pain with advanced day of 04/22/25. Discussed with the patient the risks associated with benzodiazepine and opioid use. Patient is aware and verbalized an agreement to take the medications at least two hours apart. Patient has Narcan at home. All questions and concerns have been answered and patient agreed with the plan. Follow up in one month and sooner as needed. Medications: Refilled oxycodone Partial Fill upon patient request. 5 mg PO QID 30 days PRN 120 tabs 0RF pain G89.4 - Chronic pain syndrome, M47.817 - Spondylosis without myelopathy or radiculopathy, lumbosacral region, M50.30 - Other cervical disc degeneration, unspecified cervical region, Z79.891 - intermediate teacher (current) use of opiate analgesic Coding Level of Care Code Est Pt Level 4 (64298) Complex EM visit Add On G2211 Diagnoses Lumbosacral spondylosis M47.817 Chronic pain syndrome G89.4 Degenerative disc disease, cervical M50.30 Fibromyalgia M79.7 Opiate analgesic contract exists Z79.891 Cervical spondylosis M47.812 Basal cell carcinoma C44.91
[2025-04-01 09:01] VITALS: BP 157/74; PULSE 64; O2SAT 100; BMI 17.6
--- OUTSIDE RECORDS SUMMARY | 2025-04-01 09:02 | XMS_ITS | Clinical Summary ---
Author Organization [facility] it Address [address] [place] [address] Care Team Providers Care Termite Control Servicer Name Role Phone Unavailable Primary Care Provider [...]
== END 2025-04-01 09:04 | disposition home or self-care (01) ==
LOC: HO.PMC 08:51
PROVIDERS: PCP Internal Medicine; Visit Provider Nurse Practitioner Family
DX: M47.817 Spondylosis without myelopathy or radiculopathy, lumbosacral region (principal); G89.4 Chronic pain syndrome; M50.30 Other cervical disc degeneration, unspecified cervical region; M79.7 Fibromyalgia; Z79.891 Long term (current) use of opiate analgesic; M47.812 Spondylosis without myelopathy or radiculopathy, cervical region; C44.91 Basal cell carcinoma of skin, unspecified
CPT/HCPCS: 99214; G2211

== ENCOUNTER → 2025-04-01 08:51 | Outpatient (BNVA) | payer MEDICARE, OTHER, SELFPAY | PROVIDERS: PCP Internal Medicine; Visit Provider Nurse Practitioner Family | DX: Z51.81 Encounter for therapeutic drug level monitoring (principal); M47.817 Spondylosis without myelopathy or radiculopathy, lumbosacral region; M50.30 Other cervical disc degeneration, unspecified cervical region; M79.7 Fibromyalgia; M47.812 Spondylosis without myelopathy or radiculopathy, cervical region; C44.91 Basal cell carcinoma of skin, unspecified; G89.4 Chronic pain syndrome; Z79.891 Long term (current) use of opiate analgesic | CPT/HCPCS: 99212 ==

== ENCOUNTER 2025-05-13 08:52 | Outpatient (AMB) | payer MEDICARE, OTHER, SELFPAY ==
--- NOTE | 2025-05-13 08:53 | MHC.OFFVIS ---
Vital Signs 05/13/25 09:01 Height 5 ft 5 in Weight 102 lb 8 oz BMI 17.1 BP 156/89 H Blood Pressure Location Rt brachial Position Sitting Pulse 79 Pulse Source Pulse Oximeter Pulse Oximetry (%) 96 Oxygen Delivery Method Room Air Intake Visit Reasons: Pill count Intake Note: Katerina comes in today for a pill count to oxycodone, patient should have 40 tablets and presents with 42 tablets which she last took today 05/13/25 at 5:30 am. Pain today 12/31 Field Test Engineer Required: No Accompanied by: Self / Same As Patient Allergies Pldxigm-NEU-YqW Reductase Inhibitor Allergy (Intermediate, Verified 05/13/25 09:01) elevated liver enzymes HPI Comments Details: Patient presents today for a pill count. Patient is supposed to have pills #40, in her possession has #42 pills. This demonstrates a responsible attitude in regards to the medication regimen. Patient reports adequate analgesia on current regime of oxycodone 5 mg QID prn without noted side effects. She rates her pain 10, last taken medication at 05:30 today. Denies any fever, chills, constipation, nausea, sedation, dizziness, or urinary retention. She continues plant based diet which helps her to avoid constipation. Patient was previously seen at [facility] for evaluation for right nose basal cell carcinoma on 10/09/24 and was offered MOHS surgery which patient declined. She states same surgery was offered 10 years ago and she is not interested to remove significant part of her nose. PRIOR: Patient is a 68 years old female with history of chronic pain syndrome, 3 herniated cervical discs, scoliosis, lumbar spondylosis, deteriorating lumbar spine, possible nerve damage from pelvic surgery in 2020, fibromyalgia, arthritis, chronic fatigue, pancreatic pre-cancerous mass (followed at [facility]), thyroid nodules (2 biopsies at [facility] 2022, both benign), right nose basal cell carcinoma (was offered a replacement cartilage from the ear-patient declined), depression presents today to discuss medical pain management. Patient reports history of a fall that herniated 3 cervical discs and was offered immediate surgery which patient declined. She was started on tramadol with advanced dose to 100 mg QID. By 2012, her neck and shoulder pain became unbearable and she was referred to Dr. Matt at [facility] and was deemed non-surgical and was offered physical therapy. During COVID outbreak in 2019, patient states her script for Tramadol was cancelled due to her missing a physical exam visit. She started cannabis use and trialled oxycodone 5 mg one tab per day without relief prescribed by her PCP. She notes opioid medication in the past for 15 years allowed her to be less symptomatic and more functional. Patient reports chronic neck and shoulder pain as well as lower back pain extending to her hips (left>right), buttocks and lower legs significantly affect her daily activities, functioning, mobility, sleep, mood, social and interactions. Any physical activity intensifies her pain which is worst at 1600 with pain rated at 8/10 and least severe around 0400 rated at 6/10. Patient has retired from [employer] in 2001 due to severe low back pain and fatigue. Denies any fever, bladder or bowel dysfunction, or saddle anesthesia. Patient is interested in interventional and medical management to manage her chronic pain generators. Patient denies alcohol or illicit drug use. Consumes 2-3 cups of coffee daily. She continues to take edible marijuana grown at home and smokes 1 PPD for past 60 years. Patient is interested in lung cancer screening and will be referred to our Pulmonary services. Patient reports good social support, has 8 siblings and states her depression has been well controlled on trazadone and lorazepam prn. She has also tried Celexa, Paxil, Wellbutrin and amitriptyline in the past. Patient used to follow [facility] in 2001 for depression. She denies following Mental support at this time and states she has close contact with her family who have been very supportive to her. Patient reports uncontrolled daily and constant significant pain has negatively affected her depressive states. Denies any suicidal ideation or hallucinations. Location: Lower back radiates to buttocks, hips, legs; neck, bilateral shoulders Duration: Chronic pain for many years, worsening since 2020 Characteristics of symptom or complaint: Pulsing, throbbing, pinching, aching, wrenching, stabbing,sharp, burning Aggravating or associated factors: Any movement, walking, standing, sitting, Relieving factors: Previously-Oxycodone, Tramadol; now-cannabis edible Treatment: PT for neck and shoulder, massage therapy [facility] Medical History Pancreatic cancer Basal cell carcinoma Hypertension Opiate analgesic contract exists Benzodiazepine dependence Chronic pain syndrome Degenerative disc disease, cervical Cervical disc herniation Nicotine dependence, cigarettes, uncomplicated Depression H/O pelvic mass Surgical History History of basal cell carcinoma excision History of pelvic surgery History of hysterectomy Family History Maternal Grandfather Lung cancer, Onset Age: 67 Social History Housing: House Alcohol intake: current Alcohol intake frequency: holidays/special occasions only Patient Tobacco Use Status: Former Tobacco user Tobacco use type: Cigarette Years Smoked: (onset 8yo, 1ppd x 60yrs, 50pyh) e-Cigarette/Vaping Use: Never Used Second Hand Smoke Exposure: Yes service: No Current occupational status: retired Cognitive needs: No Hearing needs: No Vision needs: Yes (Glasses) Review of Systems Const All systems reviewed & are unremarkable except as noted in HPI and below Physical Exam Vital Signs: Last Vital Signs Pulse 79 05/13/25 09:01 BP 156/89 H 05/13/25 09:01 Pulse Ox 96 05/13/25 09:01 Oxygen Delivery Method Room Air 05/13/25 09:01 BMI result Body Mass Index 17.1 General: Appears afebrile. Alert and oriented. Mood and affect appropriate. Follows and participates in conversation appropriately. Respiratory effort is unlabored. No cough. Able to transition from sit to stand unassisted. Ambulates with bilaterally normal heel strike and toe off. Skin Lesions: lesion noted (basal cell carcinoma) right nose nontender Psych Appearance: grossly normal and well kempt Mental Status: mental status grossly normal Speech and movement: Normal speech and movement present and Clear speech present Affect: normal affect Attitude: cooperative Thought process: Normal thought process present Thought content: Normal thought content present, suicidality (none), no hallucinations and No Depressive thoughts present Insight: Good insight present (Psych) Judgement: Good judgement present (Psych) Results Reviewed Results Reviewed: No imaging reports are available for review. Assessment & Plan Assessment & Plan (1) Lumbosacral spondylosis: Code(s): M47.817 - Spondylosis without myelopathy or radiculopathy, lumbosacral region Category: Medical (2) Chronic pain syndrome: Code(s): G89.4 - Chronic pain syndrome Category: Medical (3) Degenerative disc disease, cervical: Code(s): M50.30 - Other cervical disc degeneration, unspecified cervical region Category: Medical (4) Fibromyalgia: Code(s): M79.7 - Fibromyalgia Category: Medical (5) Opiate analgesic contract exists: Code(s): Z79.891 - detention (current) use of opiate analgesic Category: Medical (6) Cervical spondylosis: Code(s): M47.812 - Spondylosis without myelopathy or radiculopathy, cervical region Category: Medical (7) Basal cell carcinoma: Code(s): C44.91 - Basal cell carcinoma of skin, unspecified Category: Medical Plan Patient has shown accountability for her medication regimen and the pill count was accurate. There is no evidence of misuse, abuse or diversion at this time. MassPat reviewed. Recent random UDS was positive for THC otherwise UDS was concordant. Patient consumes cannabis edibles that she personally produces for therapeutic use, for pain and sleep. Script sent for oxycodone 5 mg QID prn for moderate-severe pain with advanced day of 05/22/25. Discussed with the patient the risks associated with benzodiazepine and opioid use. Patient is aware and verbalized an agreement to take the medications at least two hours apart. Patient has Narcan at home. All questions and concerns have been answered and patient agreed with the plan. Follow up in 4-5 weeks and sooner as needed. Medications: Refilled oxycodone Partial Fill upon patient request. 5 mg PO QID PRN 120 tabs 0RF pain 30 days G89.4 - Chronic pain syndrome, M47.817 - Spondylosis without myelopathy or radiculopathy, lumbosacral region, M50.30 - Other cervical disc degeneration, unspecified cervical region, Z79.891 - detention (current) use of opiate analgesic Coding Level of Care Code Est Pt Level 4 (19072) Complex EM visit Add On G2211 Diagnoses Lumbosacral spondylosis M47.817 Chronic pain syndrome G89.4 Degenerative disc disease, cervical M50.30 Fibromyalgia M79.7 Opiate analgesic contract exists Z79.891 Cervical spondylosis M47.812 Basal cell carcinoma C44.91
[2025-05-13 09:01] VITALS: BP 156/89; PULSE 79; O2SAT 96; BMI 17.1
--- OUTSIDE RECORDS SUMMARY | 2025-05-13 09:01 | XMS_ITS | Clinical Summary ---
Author Organization [facility] it Address [address] [place] [address] Care Team Providers Care Territory Sales Manager Name Role Phone Unavailable Primary Care [...] 2005 COVID-19 Vaccine (2023-2 5 season) 2024 Depression Screening 10/24/2024 Influenza Vaccine (#1) 2025 RSV Immunization Adult Patie nts (1 [...]
--- OUTSIDE RECORDS SUMMARY | 2025-05-13 09:01 | XMS_ITS | Clinical Summary ---
Author Organization [facility] Address [address] [place] [id number] Care Team Providers Care Automobile Tester Name Role Phone Unavailable Primary Care Provider [...] 72 06/04/2021 4:21 PM EDT Temperature 36.4 C (97.6 F) 06/04/2021 12:19 PM EDT Respiratory Rate 16 06/04/2021 12:19 PM EDT [...] Screening (DEXA Scan) 2020 Influenza Vaccine (#1) 2025 RSV Adult > 60+ Yrs or Pregn ant (1 - 1-dose 75+ series) 2030 Hepatitis B Vaccines Aged Out No long er eligible based on patient's age to complete this topic RSV Ped < 20 months Aged Out No longe r eligible based on patient's age to complete this topic Medical Devices Explanted Type Area Commercial Portfolio Manager Device Identifier Shelf Expiration Date Model / Serial / Lot Cath Polyuret Open Tp [id number] [employer] [id number] - [id number] Explanted:Qty: 1 on 06/01/2021 by Chong Alberto DO at [facility] Left: Ureter [employer] 01/20/2024 [id number] / / [id number] Description:Stents confirmed intact by Dr. Alberto Cath Polyuret Open Tp [id number] [employer] [id number] - [id number] Explanted:Qty: 1 on 06/01/2021 by Chong Alberto DO at [facility] and Med Right: Ureter [employer] 01/20/2024 [id number] / / [id number] Description:Stents confirmed intact by Dr. Alberto Advance Directives For more information, please contact: [phone] Latest Code Status on File Code Status Date Activated Date Inactivated Comments Full Code 06/01/2021 10:51 AM 06/04/2021 10:45 PM This code status was ascertained in the following way: discussion with patient .
--- OUTSIDE RECORDS SUMMARY | 2025-05-13 09:01 | XMS_ITS | Clinical Summary ---
Author Organization [facility] Address [address] [place] [id number] Phone Care Team Providers Care Nurse Practitioner Adult Name Role Phone Lucas Felton MD Primary Care Provid er Rafal Gamboa MD Unavailable [phone] Allergies Active Allergy Reactions Criticality Noted Date Comments Pditlmr-Itc-Hvt Reductase Inhibitors 05/15/2021 Elevated liver enzymes per pt Medications amitriptyline (ELAVIL) 25 MG tablet Take 50 mg by mouth nightly at bedtime. 05/12/2023 Active clonazePAM (KLONOPIN) 1 MG tablet Take 1 tablet by mouth every morning. 05/19/2023 Active Social History Tobacco Use Types Packs/Day Years Used Date Smoking Tobacco: Never Assessed Tobacco Cessation:Counseling Given: Not Answered Child or Family Care Answer Date Record ed Do you have problems with on e of the following making it difficult for you to work, study, or receive health care? No 05/21/2023 Education Answer Date Recorded Are you interested in more education? Not on adrienne e 05/09/2023 Are you concerned about learning? Not on file 05/09/2023 No 05/09/2023 No 05/09/2023 Food Answer Date Recorded Within the past 6 months we worried whether our food would run out before we got money to buy more. Never True 05/21/2023 Within the past 6 months the food we bought just didn't last and we didn't have enough money to get more. Never True Residential Stability Answer Date Recor ded What is your housing situation today? I have deneen zee 05/21/2023 How many times have you move d in the past 12 months? Zero (I did not move) 05/21/2023 Paying for Meds Answer Date Recorded Do you have trouble paying for medicines? No 05/21/2023 Paying Utility Bills Answer Date Record ed Do you have trouble paying your heating or elect ricity bill? No 05/21/2023 Transportation Answer Date Recorded Has the lack of transportati on kept you from medical appointments or from getting medications? No 05/21/2023 Digital Access Answer Date Recorded No 05/09/2023 No 05/09/2023 Reliable internet access at home? Not on file 05/09/2023 Device with a working camera? Not on file Comments Unknown Sex and Gender Information Value Date Recorded Sex Assigned at Female 05/02/2023 12:48 PM EDT Legal Sex Female 12:34 PM EDT Gender Identity Female 05/02/2023 12:48 PM EDT Sexual Orientation Straight 05/02/2023 12 :48 PM EDT Last Filed Vital Signs Vital Sign Reading Time Taken Comments Blood Pressure 161/77 05/27/2023 12:35 PM EDT Pulse 83 05/27/2023 12:35 PM EDT Temperature 36.7 C (98 F) 05/27/2023 12:34 PM EDT Respiratory Rate 18 05/27/2023 12:33 PM EDT Oxygen Saturation 96% 05/27/2023 12:35 PM EDT Inhaled Oxygen Concentration - - Weight 55.4 kg (122 lb 2.2 oz) 05/27/2023 12:33 PM EDT Height 164 cm (5' 4.57 ) 05/27/2023 12:33 PM EDT Body Mass Index 20.6 05/27/2023 12:33 PM EDT Plan of Treatment Health Maintenance Due Date Last Done Comments Adult Td,Tdap Booster 1955 LIPID PANEL 1955 DEPRESSION SCREENING 1967 SMOKING Hx and SMOKELESS TOBACCO SCREENING 1968 HEPATITIS C SCREENING 1973 MAMMOGRAM 1995 COLOGUARD 2000 COLONOSCOPY 2000 COLORECTAL CANCER SCREENING 2000 FIT TEST 2000 FOBT 2000 SIGMOIDOSCOPY 2000 VIRTUAL COLONOSCOPY 2000 PNEUMOCOCCAL VACCINES (50+ years) (1 of 1 - PCV) 2005 ZOSTER VACCINES (1 of 2) 2005 OSTEOPOROSIS SCREENING INITI AL (ONE-TIME) 2020 COVID-19 VACCINE (4 - 2023-2 5 season) 2024 08/14/2021, 01/24/2021, 01/03/2021 RSV VACCINE (1 - 1-dose 75+ series) 2030 HEPATITIS A VACCINES Aged Out No long er eligible based on patient's age to complete this topic HIB VACCINES Aged Out No longer eligi ble based on patient's age to complete this topic MENINGOCOCCAL VACCINES (ACWY) Aged Out No longer eligible based on patient's age to complete this topic MENINGOCOCCAL VACCINES (B) Aged Out N o longer eligible based on patient's age to complete this topic Medical Devices Not on file Insurance MEDICARE PART A & B [facility] MED[employer] ENHANCE SUPPLEMENT MEDICARE PART A & B [facility] MEDICARE ENHANCE SUPPLEMENT MEDICARE PART A & B [facility] MEDICARE ENHANCE SUPPLEMENT MEDICARE PART A & B [facility] MEDICARE ENHANCE SUPPLEMENT MEDICARE PART A & B [facility] MEDICARE ENHANCE SUPPLEMENT MEDICARE PART A & B [employer] [facility] MEDIC[employer] ENHANCE SUPPLEMENT Care Teams Nurse Practitioner Adult Relationship Specialty Start Date End Date Lucas Felton MD [address] [place] [phone] PCP - General Internal Medicine 05/02/23 Rafal Gamboa MD [address] [place] [id number] [email or web address] Surgery 05/10/23 Additional Source Comments The information contained in this document represents components of the legal health record. It is not the complete legal health record.[facility]
== END 2025-05-13 09:05 | disposition home or self-care (01) ==
PROVIDERS: PCP Internal Medicine; Visit Provider Nurse Practitioner Family
DX: M47.817 Spondylosis without myelopathy or radiculopathy, lumbosacral region (principal); G89.4 Chronic pain syndrome; M50.30 Other cervical disc degeneration, unspecified cervical region; M79.7 Fibromyalgia; Z79.891 Long term (current) use of opiate analgesic; M47.812 Spondylosis without myelopathy or radiculopathy, cervical region; C44.91 Basal cell carcinoma of skin, unspecified
CPT/HCPCS: 99214; G2211

== ENCOUNTER → 2025-05-13 08:52 | Outpatient (BNVA) | payer MEDICARE, OTHER, SELFPAY | PROVIDERS: PCP Internal Medicine; Visit Provider Nurse Practitioner Family | DX: Z51.81 Encounter for therapeutic drug level monitoring (principal); M47.817 Spondylosis without myelopathy or radiculopathy, lumbosacral region; M50.30 Other cervical disc degeneration, unspecified cervical region; M79.7 Fibromyalgia; M47.812 Spondylosis without myelopathy or radiculopathy, cervical region; C44.91 Basal cell carcinoma of skin, unspecified; G89.4 Chronic pain syndrome; Z79.891 Long term (current) use of opiate analgesic | CPT/HCPCS: 99212 ==

== ENCOUNTER 2025-08-19 09:21 | Outpatient (AMB) | payer MEDICARE, OTHER, SELFPAY ==
--- NOTE | 2025-08-19 09:23 | A.OFFVIS_ITS ---
Vital Signs 08/19/25 09:28 Height 5 ft 5 in Weight 106 lb 8 oz BMI 17.7 BP 161/81 H Blood Pressure Location Rt brachial Position Sitting Pulse 83 Pulse Source Pulse Oximeter Pulse Oximetry (%) 97 Oxygen Delivery Method Room Air Intake Visit Reasons: PILL COUNT Intake Note: Katerina comes in today for a pill count to oxycodone, patient should have 8 tablets and presents with 10 tablets which she last took today 08/19/25 at 5 am. Pain today 12/31 Interior Paneler Required: No Accompanied by: Self / Same As Patient Allergies Zrwyona-IZP-EbP Reductase Inhibitor Allergy (Intermediate, Verified 08/19/25 09:33) elevated liver enzymes HPI Comments Details: Patient presents today for a pill count. Patient is supposed to have pills #8, in her possession has #10 pills. This demonstrates a responsible attitude in regards to the medication regimen. Patient reports adequate analgesia on current regime of oxycodone 5 mg QID prn without noted side effects. She rates her pain 10, last taken medication at 05:00 today. Denies any fever, chills, constipation, nausea, sedation, dizziness, or urinary retention. She continues plant based diet which helps her to avoid constipation. The patient also reports chronic fatigue, which she has experienced since 1997, with a noted progression over the past 25 years. She is considering scheduling a sleep study due to persistent tiredness, daytime sleepiness and a history of sleep apnea diagnosed 20 years ago. Patient also reports she recently started taking OTC iron supplements and is encouraged to follow up with her PCP to rule out vitamin (B12, folate, and iron) deficiencies and other disorders, given history of right nose basal cell carcinoma. Patient was previously seen at [facility] for evaluation for right nose basal cell carcinoma on 10/09/24 and was offered MOHS surgery which patient declined. She states same surgery was offered 10 years ago and she is not interested to remove significant part of her nose. She has a history of a concussion in 2021, for which she consulted a Neurologist, although she reports no active follow-up with any specialists currently. PRIOR: Patient is a 68 years old female with history of chronic pain syndrome, 3 herniated cervical discs, scoliosis, lumbar spondylosis, deteriorating lumbar spine, possible nerve damage from pelvic surgery in 2020, fibromyalgia, arthritis, chronic fatigue, pancreatic pre-cancerous mass (followed at [facility] and [facility]), thyroid nodules (2 biopsies at [facility] 2022, both benign), right nose basal cell carcinoma (was offered a replacement cartilage from the ear-patient declined), depression presents today to discuss medical pain management. Patient reports history of a fall that herniated 3 cervical discs and was offered immediate surgery which patient declined. She was started on tramadol with advanced dose to 100 mg QID. By 2012, her neck and shoulder pain became unbearable and she was referred to Dr. Matt at [facility] and was deemed non-surgical and was offered physical therapy. During COVID outbreak in 2019, patient states her script for Tramadol was cancelled due to her missing a physical exam visit. She started cannabis use and trialled oxycodone 5 mg one tab per day without relief prescribed by her PCP. She notes opioid medication in the past for 15 years allowed her to be less symptomatic and more functional. Patient reports chronic neck and shoulder pain as well as lower back pain extending to her hips (left>right), buttocks and lower legs significantly affect her daily activities, functioning, mobility, sleep, mood, social and interactions. Any physical activity intensifies her pain which is worst at 1600 with pain rated at 8/10 and least severe around 0400 rated at 6/10. Patient has retired from [employer] in 2001 due to severe low back pain and fatigue. Denies any fever, bladder or bowel dysfunction, or saddle anesthesia. Patient is interested in interventional and medical management to manage her chronic pain generators. Patient denies alcohol or illicit drug use. Consumes 2-3 cups of coffee daily. She continues to take edible marijuana grown at home and smokes 1 PPD for past 60 years. Patient is interested in lung cancer screening and will be referred to our Pulmonary services. Patient reports good social support, has 8 siblings and states her depression has been well controlled on trazadone and lorazepam prn. She has also tried Celexa, Paxil, Wellbutrin and amitriptyline in the past. Patient used to follow [facility] in 2001 for depression. She denies following Mental support at this time and states she has close contact with her family who have been very supportive to her. Patient reports uncontrolled daily and constant significant pain has negatively affected her depressive states. Denies any suic idal ideation or hallucinations. Location: Lower back radiates to buttocks, hips, legs; neck, bilateral shoulders Duration: Chronic pain for many years, worsening since 2020 Characteristics of symptom or complaint: Pulsing, throbbing, pinching, aching, wrenching, stabbing,sharp, burning Aggravating or associated factors: Any movement, walking, standing, sitting, Relieving factors: Previously-Oxycodone, Tramadol; now-cannabis edible Treatment: PT for neck and shoulder, massage therapy PFSH Medical History Pancreatic cancer Basal cell carcinoma Hypertension Opiate analgesic contract exists Benzodiazepine dependence Chronic pain syndrome Degenerative disc disease, cervical Cervical disc herniation Nicotine dependence, cigarettes, uncomplicated Depression H/O pelvic mass Surgical History History of basal cell carcinoma excision History of pelvic surgery History of hysterectomy Family History Maternal Grandfather Lung cancer, Onset Age: 67 Social History Housing: House Alcohol intake: current Alcohol intake frequency: holidays/special occasions only Patient Tobacco Use Status: Former Tobacco user Tobacco use type: Cigarette Years Smoked: (onset 8yo, 1ppd x 60yrs, 50pyh) e-Cigarette/Vaping Use: Never Used Second Hand Smoke Exposure: Yes service: No Current occupational status: retired Cognitive needs: No Hearing needs: No Vision needs: Yes (Glasses) Review of Systems Const Details: - General: Reports chronic fatigue and daytime sleepiness. - Gastrointestinal: Denies constipation. All systems reviewed & are unremarkable except as noted in HPI and below Physical Exam Vital Signs: Last Vital Signs Pulse 83 08/19/25 09:28 BP 161/81 H 08/19/25 09:28 Pulse Ox 97 08/19/25 09:28 Oxygen Delivery Method Room Air 08/19/25 09:28 BMI result Body Mass Index 17.7 General: Appears afebrile. Alert and oriented. Mood and affect appropriate. Follows and participates in conversation appropriately. Respiratory effort is unlabored. No cough. Able to transition from sit to stand unassisted. Ambulates with bilaterally normal heel strike and toe off. Resp Effort & Inspection: normal respiratory effort, able to speak in complete sentences, no cough, respiratory effort not decreased, no respiratory distress and symmetric chest movement Skin Lesions: lesion noted (basal cell carcinoma) right nose nontender Extrem General: Yes capillary refill normal, Yes no clubbing, cyanosis or edema and Yes no calf tenderness Psych Appearance: grossly normal and well kempt Mental Status: mental status grossly normal Speech and movement: Normal speech and movement present and Clear speech present Affect: normal affect Attitude: cooperative Thought process: Normal thought process present Thought content: Normal thought content present, suicidality (none), no hallucinations and No Depressive thoughts present Insight: Good insight present (Psych) Judgement: Good judgement present (Psych) Results Reviewed Results Reviewed: MR CERVICAL SPINE WITHOUT CONTRAST 08/06/2022 CLINICAL INFORMATION: 66-year-old with self-reported neck and bilateral shoulder pain and headaches. Cervical disc displacement. COMPARISON: 11/14/2012 MRI TECHNIQUE: MRI of the cervical spine was obtained using routine sequences without contrast. FINDINGS: Alignment: There is 2 mm of anterolisthesis at C3-C4 since the previous exam. There is 2 mm of retrolisthesis at C4-C5, stable in appearance. Otherwise normal alignment unchanged in appearance. Craniocervical Junction/C1-C2 Articulations: Intact and aligned. Visualized Intracranial Structures: Within normal limits. Vertebral Bodies: Normal height. Disc Spaces and Endplates: Severe disc space height loss at C4-C5 with Schmorl's nodes, disc desiccation and spondylosis similar to the previous exam. Mild disc space height loss at C3-C4, stable in appearance. Zblwjzgj-cs-lmzaow disc space height loss at C5-C6 and C6-C7 with disc desiccation, tiny Schmorl's nodes and mild degrees of spondylosis, stable in appearance. Bone Marrow: Minor type I degenerative marrow signal changes seen along the endplates at C4-C5, C5-C6 and C6-C7 with associated type II degenerative marrow signal changes. Type II marrow signal change seen most prominently at C4-C5, stable in appearance. No suspicious marrow replacing process or other bone marrow edema. C2-C3: Mild posterior disc osteophyte complex asymmetric to the right, stable in appearance with slight flattening of the dural sac on the right, unchanged, without cord impingement or canal stenosis. There is uncovertebral and facet arthrosis bilaterally, with progression of facet arthrosis on the left. There is moderate right and mild left-sided neural foraminal stenosis, progressed on the left and stable on the right. C3-C4: Broad-based central disc protrusion similar to previous study with mild flattening of the central dural sac with trace anterolisthesis at this level on the current exam without cord impingement or canal stenosis. There is uncovertebral spurring, left more than right, with mild right and severe left-sided facet arthrosis, progressed on the left. There is jizppgfs-rr-dggbjs left-sided and mild right-sided neural foraminal stenosis, largely unchanged. C4-C5: Mild retrolisthesis, with broad-based posterior disc osteophyte complex and a superimposed central disc herniation similar to the previous exam, with lkhv-rw-gfbrwpjw ventral cord impingement centrally with AP cord caliber of 5 mm, stable in appearance. There is associated moderate central spinal canal stenosis, stable in appearance. There is uncovertebral spurring and facet arthrosis bilaterally similar to the previous exam, with fxqkhlkz-jy-ducpjc left-sided and sqrd-zf-ojskrzzo right-sided neural foraminal stenosis, stable in appearance. C5-C6: Broad-based disc osteophyte complex noted asymmetric to the right, similar to the previous exam, with effacement of the dural sac on the right without cord compression, stable in appearance. Mild central canal stenosis is stable. Bilateral uncovertebral spurring and facet arthropathy is similar to the previous exam with ognznwjd-ts-lkjqou bilateral neural foraminal stenosis, stable in appearance. There is probable encroachment on the ventral root of C6 on the right, unchanged. C6-C7: Broad-based disc osteophyte complex with mild flattening of the ventral dural sac, stable in appearance, without cord impingement or canal stenosis. Bilateral uncovertebral spurring is again noted with mild right and moderate left-sided neural foraminal stenosis, stable in appearance. C7-T1: Small central to right paramedian disc osteophyte complex, stable in appearance, without significant facet arthrosis, canal or neuroforaminal stenosis. T1-T2: No disc herniation or canal stenosis. No significant DJD or neuroforaminal stenosis. Small perineural cysts noted bilaterally, stable in appearance. Spinal Cord: The cervical and visualized upper thoracic spinal cord is normal in signal intensity throughout, without focal lesion, edema or syrinx. Probable chronic spinal cord volume loss at C4-C5, unchanged. Extracranial Soft Tissues: 1.8 cm left thyroid lobe nodule is noted. Recommend follow-up thyroid ultrasound otherwise the visualized extraspinal soft tissues are grossly unremarkable in appearance. IMPRESSION: 1. Mild anterolisthesis at C3-C4 since the previous exam and mild retrolisthesis at C4-C5 stable in appearance. 2. Multilevel DDD and spondylosis largely stable in appearance with multilevel disc osteophyte complexes and disc herniations as described above largely similar in appearance to the previous exam with moderate central spinal canal stenosis at C4-C5 and mild central canal stenosis at C5-C6 stable in appearance. Kumb-uu-jpqgecim ventral cord impingement at C4-C5 is stable with probable chronic spinal cord volume loss at this level unchanged. 3. Multilevel DJD as described above with progression of facet arthrosis on the left at C3-C4. Multilevel bilateral neural foraminal stenosis is largely stable in appearance as detailed by level above. 4. 1.8 cm left thyroid lobe nodule. Recommend follow-up thyroid ultrasound. Assessment & Plan Assessment & Plan (1) Opiate analgesic contract exists: Code(s): Z79.891 - watermaster (current) use of opiate analgesic Category: Medical (2) Excessive daytime sleepiness: Code(s): G47.19 - Other hypersomnia Category: Medical (3) Chronic fatigue: Code(s): R53.82 - Chronic fatigue, unspecified Category: Medical (4) Lumbosacral spondylosis: Code(s): M47.817 - Spondylosis without myelopathy or radiculopathy, lumbosacral region Category: Medical (5) Chronic pain syndrome: Code(s): G89.4 - Chronic pain syndrome Category: Medical (6) Degenerative disc disease, cervical: Code(s): M50.30 - Other cervical disc degeneration, unspecified cervical region Category: Medical (7) Fibromyalgia: Code(s): M79.7 - Fibromyalgia Category: Medical (8) Cervical spondylosis: Code(s): M47.812 - Spondylosis without myelopathy or radiculopathy, cervical region Category: Medical Plan Patient has shown accountability for her medication regimen and the pill count was accurate. There is no evidence of misuse, abuse or diversion at this time. MassPat reviewed. Recent random UDS was positive for THC otherwise UDS was concordant. Patient consumes cannabis edibles that she personally produces for therapeutic use, for pain and sleep. Script sent today for oxycodone 5 mg QID prn for moderate-severe pain. Patient has Narcan at home. A referral for a sleep study has been made to address the chronic fatigue and suspected sleep apnea, with options for conducting the study at home or in a clinic discussed. Encouraged to follow up with PCP to rule out other causes for chronic fatigue. All questions and concerns have been answered and patient agreed with the plan. Follow up in 4-5 weeks and sooner as needed. Orders: Referrals Sleep Medicine Referral G47.19 - Other hypersomnia, R53.82 - Chronic fatigue, unspecified Medications: Refilled oxycodone Partial Fill upon patient request. 5 mg PO QID PRN 120 tabs 0RF pain 30 days G89.4 - Chronic pain syndrome, M47.817 - Spondylosis without myelopathy or radiculopathy, lumbosacral region, M50.30 - Other cervical disc degeneration, unspecified cervical region, Z79.891 - watermaster (current) use of opiate analgesic Coding Level of Care Code Est Pt Level 4 (64893) Complex EM visit Add On G2211 Diagnoses Opiate analgesic contract exists Z79.891 Excessive daytime sleepiness G47.19 Chronic fatigue R53.82 Lumbosacral spondylosis M47.817 Chronic pain syndrome G89.4 Degenerative disc disease, cervical M50.30 Fibromyalgia M79.7 Cervical spondylosis M47.812
[2025-08-19 09:28] VITALS: BP 161/81; PULSE 83; O2SAT 97; BMI 17.7
--- OUTSIDE RECORDS SUMMARY | 2025-08-19 10:22 | XMS_ITS | Clinical Summary ---
Author Organization [facility] it Address [address] [place] [address] Care Team Providers Care Supervisor Wall Mirror Department Name Role Phone Unavailable Primary Care Provider [...] 2005 Zoster Vaccines (1 of 2) 2005 Depression Screening 10/24/2024 COVID-19 Vaccine (1 - 2023-2 5 season) 2025 Influenza Vaccine (#1) 2025 RSV Immunization Adult [...]
--- OUTSIDE RECORDS SUMMARY | 2025-08-19 10:22 | XMS_ITS | Encounter Summary ---
Author Organization [facility] Address [address] [place] [address] [place] [phone] Phone Care Team Providers Care Hardware Press Operator Name Role Phone Lucas Felton MD Primary Care Provid er Rafal Gamboa MD Unavailable [phone] Encounter Details Date Type Department Care Team (Late st Contact Info) Description 05/27/2023 Procedure Pass [facility] MR Imaging, [place] [address] [place] [address] Social History Tobacco Use Types Packs/Day Years Used Date Smoking Tobacco: Never Assessed Child or Family Care Answer Date Record [...] your housing situation today? I have deneen sing 05/21/2023 How many times have you move [...] Orientation Straight 05/02/2023 12 :48 PM EDT documented as of this encounter Plan of Treatment Not on file documented as of this encounter Visit Diagnoses Not on filedocumented in this encounter Care Teams Hardware Press Operator Relationship Specialty Start Date End Date Lucas Felton MD [address] [place] [id number] PCP - General Internal Medicine 05/02/23 Rafal Gamboa MD [address] [place] [address] [place] [address] [email or web address] 05/10/23 documented as of this encounter Additional Source Comments The information contained in this document represents components of the legal health record. It is not the complete legal health record.[facility]
--- OUTSIDE RECORDS SUMMARY | 2025-08-19 10:22 | XMS_ITS | Clinical Summary ---
Author Organization [facility] Address [address] [place] [id number] Care Team Providers Care Project Management Intern Name Role Phone Unavailable Primary Care Provider [...] this topic Medical Devices Explanted Type Area Enterprise Application Administrator Device Identifier Shelf Expiration Date Model / Serial / Lot Cath Polyuret Open Tp [id number] [employer] [id number] - [id number] Explanted:Qty: 1 on 06/01/2021 by Chong Alberto DO at [facility] and [facility] Left: Ureter CR [employer] 01/20/2024 [id number] / / [id number] Description:Stents confirmed intact by Dr. Alberto Cath Polyuret Open Tp [id number] [employer] [id number] - [id number] Explanted:Qty: 1 on 06/01/2021 by Chong Alberto DO at [facility] and Med Right: Ureter CR [employer] 01/20/2024 [id number] / / [id number] Description:Stents confirmed intact by Dr. Alberto Advance Directives For more information, please contact: [phone] Latest Code Status on File Code Status Date Activated Date Inactivated Comments Full Code 06/01/2021 10:51 AM 06/04/2021 10:45 PM This code status was ascertained in the following way: discussion with patient .
== END 2025-08-19 09:51 | disposition home or self-care (01) ==
LOC: HO.PMC 09:22
PROVIDERS: PCP Internal Medicine; Visit Provider Nurse Practitioner Family
DX: Z79.891 Long term (current) use of opiate analgesic (principal); G47.19 Other hypersomnia; R53.82 Chronic fatigue, unspecified; M47.817 Spondylosis without myelopathy or radiculopathy, lumbosacral region; G89.4 Chronic pain syndrome; M50.30 Other cervical disc degeneration, unspecified cervical region; M79.7 Fibromyalgia; M47.812 Spondylosis without myelopathy or radiculopathy, cervical region
CPT/HCPCS: 99214; G2211

== ENCOUNTER → 2025-08-19 09:21 | Outpatient (BNVA) | payer MEDICARE, OTHER, SELFPAY | PROVIDERS: PCP Internal Medicine; Visit Provider Nurse Practitioner Family | DX: M47.817 Spondylosis without myelopathy or radiculopathy, lumbosacral region (principal); Z79.891 Long term (current) use of opiate analgesic; M50.30 Other cervical disc degeneration, unspecified cervical region; M47.812 Spondylosis without myelopathy or radiculopathy, cervical region; M79.7 Fibromyalgia; R53.82 Chronic fatigue, unspecified; G47.19 Other hypersomnia; Z72.0 Tobacco use; G89.4 Chronic pain syndrome | CPT/HCPCS: 99212 ==

== ENCOUNTER 2025-08-27 11:19 | Outpatient (AMB) | payer MEDICARE, OTHER, SELFPAY ==
--- NOTE | 2025-08-27 11:38 | MHC.OFFVIS ---
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 The patient also reports chronic fatigue, which she has experienced since 1997, with a noted progression over the past 25 years. She is considering scheduling a sleep study due to persistent tiredness, daytime sleepiness and a history of sleep apnea diagnosed 20 years ago. Patient states hard time falling/staying asleep. Goes to bed around 9pm and wakes up at 4am. Wakes up 3times a night. No headaches. Naps for 1hr. Last sleep sleep study was back in 2004. Feels like it wasnt accurant. Gave her CPAP(used for 6m and stopped using due to being to loud as she is light sleeper) Accompanied by: Self / Same As Patient Allergies Aephwim-GNV-VyC Reductase Inhibitor Allergy (Intermediate, Verified 08/27/25 11:59) elevated liver enzymes HPI Comments Details: 70 year old female is here for an evaluation of sleep apnea, she is referred to us by her pain management therapist. She was diagnosed with moderate to severe sam in 2004, could not tolerate cpap due to noise, ear plugs did not work for her. She goes to bed at 8pm and watches podcast for an hour and falls asleep. She has multiple arousals at night, goes to the bathroom, drinks water and take her trazadone 50mg and then falls asleep. Denies snoring, gasping for air, and denies morning headaches. She grinds her teeth, denies use of mouth guard, wakes up with sore bi-temporal jaw pain. She denies h/o gerd, has diverticulitis, IBS with +constipation/ diarrhea now symptoms improved. She eats breakfast drinks coffee, then goes to bed at 8am, cleans the yard then eats lunch, reads paper, goes back to bed, naps 1-2 hour in the afternoon. She feels chronically exhausted. Mood is stable. Diet is plant based, goes to the gym, takes whey protein daily. STM is poor at baseline, now worse, has to write everything down, appts, meds and daily tasks. Denies getting lost, forgetting names, she gets easily side tracked, never diagnosed with ADHD. Concentration and focus has worsened. She smokes 1 pack a day has emphysema. H/O bcc kriss madrigal, sees Dr. Casa Poole Dermatololy. Lorazepam prn, narcan prn d/t oxy, trazadone and, MJ- cannibis THC 25mg daily around 5-6pm induce sleep, & pain management. Estephania -Buchanincan for pain, once a month. 2012 mild stroke, speech slurred, could not speak, produced illogical words for less than a minute and refused to go to ER. [facility] Medical History Pancreatic cancer Basal cell carcinoma Hypertension Opiate analgesic contract exists Benzodiazepine dependence Chronic pain syndrome Degenerative disc disease, cervical Cervical disc herniation Nicotine dependence, cigarettes, uncomplicated Depression H/O pelvic mass Surgical History History of basal cell carcinoma excision History of pelvic surgery History of hysterectomy Family History Maternal Grandfather Lung cancer, Onset Age: 67 Social History Housing: House Alcohol intake: current Alcohol intake frequency: holidays/special occasions only Patient Tobacco Use Status: Former Tobacco user Tobacco use type: Cigarette Years Smoked: (onset 8yo, 1ppd x 60yrs, 50pyh) e-Cigarette/Vaping Use: Never Used Second Hand Smoke Exposure: Yes service: No Current occupational status: retired Cognitive needs: No Hearing needs: No Vision needs: Yes (Glasses) Physical Exam Const Other: thin, pleasant female General: cooperative, comfortable and no acute distress Nutritional Appearance: thin Orientation/consciousness: patient oriented x3 HEENT Face and sinus: Yes face symmetric Teeth and gingiva: other (mallampti score is 3 / tongue veers down and to left.) Eyes Pupils: Equal, round and reactive pupils present Neck Neck: Yes full ROM Resp Effort & Inspection: normal respiratory effort and able to speak in complete sentences Neuro Other: bilateral mild upper ext tremors tongue curls/ veers to downward and to left on protrusion- TD ? General: patient oriented x3 and moves all extremities Cranial nerves: Yes Equal, round and reactive pupils present, Yes Normal accommodation reflex present, Yes Normal facial strength present, Yes Ability to bilaterally rotate head present and Yes Ability to bilaterally elevate shoulders present Gait exam (Neuro): Normal gait present Motor exam (neuro): 5/5 motor strength present throughout, Normal motor muscle tone present throughout and Tremors during motor activity present Psych Appearance: well kempt Speech and movement: Normal speech and movement present Affect: normal affect Thought process: Normal thought process present Thought content: Normal thought content present Results Reviewed Results Reviewed: labs reviewed from February2025 Assessment & Plan Assessment & Plan (1) Excessive daytime sleepiness: Code(s): G47.19 - Other hypersomnia Category: Medical (2) Nicotine dependence, cigarettes, uncomplicated: Comment: (current smoker - onset 8yo, 1ppd x 60yrs, 50pyh) Code(s): F17.210 - Nicotine dependence, cigarettes, uncomplicated Category: Medical (3) Emphysema lung: Code(s): J43.9 - Emphysema, unspecified Category: Medical Qualifiers: Emphysema type: unspecified Qualified Code(s): J43.9 - Emphysema, unspecified Plan HST r/o sam Community Navigation referral : Asthma and Emphysema pt requests smoking cessation, pt would like to try hypnosis, has tried and failed therapy with gum, patches, etc, modification of behavior. Labs to r/o fatigue F/U in 3 months Orders: Orders RT home sleep study Today G47.19 - Other hypersomnia Complete Blood Count no Diff Today G47.19 - Other hypersomnia Comprehensive Met. Panel Today G47.19 - Other hypersomnia Ferritin Today G47.19 - Other hypersomnia IRON PROFILE Today G47.19 - Other hypersomnia, G47.9 - Sleep disorder, unspecified, R53.83 - Other fatigue Homocysteine Today G47.19 - Other hypersomnia, G47.9 - Sleep disorder, unspecified, R53.83 - Other fatigue TSH reflex Free T4 Today G47.19 - Other hypersomnia Methylmalonic Acid Today G47.19 - Other hypersomnia, G47.9 - Sleep disorder, unspecified, R53.83 - Other fatigue Vitamin D 25-OH Total Today G47.19 - Other hypersomnia Vitamin B12 and Folate Today G47.19 - Other hypersomnia Referrals Smoking Cessation Counseling J43.9 - Emphysema, unspecified Patient Instructions: Please complete the following fasting labs to rule out deficiencies. CBC/CMP/ B12/ Vit D/ TSH/ Homocysteine and MMA/ Ferritin. Sleep Hygiene provided: set a scheduled bedtime and wake time to help regulate the circadian rhythm and balance the release of pituitary hormones. Sleep in a dark room, temperatures below 68 degrees, and no devices n bed. Limit caffeinated products 6 hours prior to bed, and limit fluids 2-4 hours prior to bed. Gentle night yoga, diffusing essential oils, and playing soft music can be relaxing. Coding Level of Care Code New Pt Level 4 (08315) Diagnoses Excessive daytime sleepiness G47.19 Nicotine dependence, cigarettes, uncomplicated F17.210 Pulmonary emphysema, unspecified emphysema type J43.9 Emphysema type: unspecified
[2025-08-27 11:59] VITALS: BP 124/82; PULSE 90; O2SAT 98; BMI 17.7
--- OUTSIDE RECORDS SUMMARY | 2025-08-27 13:53 | XMS_ITS | Clinical Summary ---
Author Organization [facility] Address [address] [place] [id number] Phone Care Team Providers Care Tow Truck Driver Name Role Phone Lucas Felton MD Primary Care Provid er Rafal Gamboa MD Unavailable [phone] Allergies Active Allergy Reactions Criticality Noted Date Comments Ejsuqzi-Vuh-Cyf Reductase Inhibitors 05/15/2021 Elevated liver enzymes per [...] 2005 OSTEOPOROSIS SCREENING INITI AL (ONE-TIME) 2020 INFLUENZA VACCINE (#1) 2025 COVID-19 VACCINE (4 - 2024-2 6 season) 2025 08/14/2021, 01/24/2021, 01/03/2021 RSV VACCINE (1 - [...] ENHANCE SUPPLEMENT MEDICARE PART A & B [facility] MEDICARE ENHANCE SUPPLEMENT MEDICARE PART A & B [facility] MEDICARE ENHANCE SUPPLEMENT [facility] Address: [facility] [id number] [id number] MEDICARE PART A & [place] [address] [place] [address] MEDICARE ENHANCE SUPPLEMENT [facility] Address: [facility] [id number] [id number] MEDICARE PART A & B [facility] MEDICARE ENHANCE SUPPLEMENT MEDICARE PART A & B [facility] MEDICARE ENHANCE SUPPLEMENT Member Subscriber Plan / Payer ( fective 2023-Present) Name:Katerina Weeks Relation to Subscriber:Self Name:Katerina Weeks Payer ID:[id number] (NAIC) Group ID:Not on file Type:[employer] Address: [address] [place] [address] Care Teams Tow Truck Driver Relationship Specialty Start Date End Date Lucas Felton MD [address] [place] [id number] PCP - General Internal Medicine 05/02/23 Rafal Gamboa MD [address] [place] [address] [place] [address] [email or web address] General Surgery 05/10/23 Additional Source Comments The information contained in this document represents components of the legal health record. It is not the complete legal health record.[facility]
--- OUTSIDE RECORDS SUMMARY | 2025-08-27 13:53 | XMS_ITS | Encounter Summary ---
Author Organization [facility] Address [address] [place] [address] [place] [address] Phone Care Team Providers Care Seedling Sorter Name Role Phone Lucas Felton MD Primary Care Provid er Rafal Gamboa MD Unavailable [phone] Encounter Details Date Type Department Care Team (Late st Contact Info) Description 05/27/[address] [facility] MR Imaging, [place] [address] [place] [address] Social History Tobacco Use Types Packs/Day Years [...] on filedocumented in this encounter Care Teams Seedling Sorter Relationship Specialty Start Date End Date Lucas Felton MD [address] [place] [phone] PCP - General Internal Medicine 05/02/23 Rafal Gamboa MD [address] [place] [address] [place] [address] [email or web address] General Surgery 05/10/23 documented as of this encounter Additional Source Comments The information contained in this document represents components of the legal health record. It is not the complete legal health record.[facility]
--- OUTSIDE RECORDS SUMMARY | 2025-08-27 13:54 | XMS_ITS | Clinical Summary ---
Author Organization [facility] Address [address] [place] [id number] Care Team Providers Care Sugar Sampler Name Role Phone Unavailable Primary Care Provider [...] this topic Medical Devices Explanted Type Area Java Engineer Device Identifier Shelf Expiration Date Model / Serial / Lot Cath Polyuret Open Tp [id number] [employer] [id number] - [id number] Explanted:Qty: 1 on 06/01/2021 by Chong Alberto DO at [facility] Left: Ureter CR [employer] 01/20/2024 [id number] / / [id number] Description:Stents confirmed intact by Dr. Alberto Cath Polyuret Open Tp [id number] [employer] [id number] - [id number] Explanted:Qty: 1 on 06/01/2021 by Chong Alberto DO at [facility] [place] [facility] Right: Ureter [employer] 01/20/2024 [id number] / / [id number] Description:Stents confirmed intact by Dr. Alberto Advance Directives For more information, please contact: [phone] Latest Code Status on File Code Status Date Activated Date Inactivated Comments Full Code 06/01/2021 10:51 AM 06/04/2021 10:45 PM This code status was ascertained in the following way: discussion with patient .
== END 2025-08-27 12:31 | disposition home or self-care (01) ==
LOC: HO.HSMS 11:19
PROVIDERS: PCP Internal Medicine; Visit Provider Physician Assistant Medical
DX: G47.19 Other hypersomnia (principal); F17.210 Nicotine dependence, cigarettes, uncomplicated; J43.9 Emphysema, unspecified
CPT/HCPCS: 99204

== ENCOUNTER → 2025-08-27 11:19 | Outpatient (BNVA) | payer MEDICARE, OTHER, SELFPAY | PROVIDERS: PCP Internal Medicine; Visit Provider Physician Assistant Medical | DX: G47.19 Other hypersomnia (principal); J43.9 Emphysema, unspecified; F17.210 Nicotine dependence, cigarettes, uncomplicated | CPT/HCPCS: 99202 ==

== ENCOUNTER 2025-09-23 08:32 | Outpatient (AMB) | payer MEDICARE, OTHER, SELFPAY ==
[2025-09-23 08:34] VITALS: BP 161/77; PULSE 91; RESP 16; O2SAT 97; BMI 18.0
--- NOTE | 2025-09-23 08:34 | MHC.OFFVIS ---
Vital Signs 09/23/25 08:34 Height 5 ft 5 in Weight 108 lb BMI 18.0 BP 161/77 H Blood Pressure Location Rt brachial Position Sitting Respiration 16 Pulse 91 Pulse Source Pulse Oximeter Pulse Oximetry (%) 97 Oxygen Delivery Method Room Air Intake Visit Reasons: PILL COUNT Intake Note: Patient here for a pill count of Oxycodone. Per directions patient should have 100 pills. Patient presented 110 pills. Last took 5am. Hooker On Required: No Accompanied by: Self / Same As Patient Allergies Xuvdjpo-RQT-VnG Reductase Inhibitor Allergy (Intermediate, Verified 09/23/25 08:34) elevated liver enzymes HPI Comments Details: Patient presents today for a pill count. Patient is supposed to have pills #100, in her possession has #110 pills. This demonstrates a responsible attitude in regards to the medication regimen. Patient reports adequate analgesia on current regime of oxycodone 5 mg QID prn without noted side effects. She rates her pain 3/10, last taken medication at 05:00 today. Denies any fever, chills, constipation, nausea, sedation, dizziness, or urinary retention. PRIOR: Patient is a 68 years old female with history of chronic pain syndrome, 3 herniated cervical discs, scoliosis, lumbar spondylosis, deteriorating lumbar spine, possible nerve damage from pelvic surgery in 2020, fibromyalgia, arthritis, chronic fatigue, pancreatic pre-cancerous mass (followed at [facility] and [facility]), thyroid nodules (2 biopsies at [facility] 2022, both benign), right nose basal cell carcinoma (was offered a replacement cartilage from the ear-patient declined), depression presents today to discuss medical pain management. Patient reports history of a fall that herniated 3 cervical discs and was offered immediate surgery which patient declined. She was started on tramadol with advanced dose to 100 mg QID. By 2012, her neck and shoulder pain became unbearable and she was referred to Dr. Matt at [facility] and was deemed non-surgical and was offered physical therapy. During COVID outbreak in 2019, patient states her script for Tramadol was cancelled due to her missing a physical exam visit. She started cannabis use and trialled oxycodone 5 mg one tab per day without relief prescribed by her PCP. She notes opioid medication in the past for 15 years allowed her to be less symptomatic and more functional. Patient reports chronic neck and shoulder pain as well as lower back pain extending to her hips (left>right), buttocks and lower legs significantly affect her daily activities, functioning, mobility, sleep, mood, social and interactions. Any physical activity intensifies her pain which is worst at 1600 with pain rated at 8/10 and least severe around 0400 rated at 6/10. Patient has retired from [employer] in 2001 due to severe low back pain and fatigue. Denies any fever, bladder or bowel dysfunction, or saddle anesthesia. Patient is interested in interventional and medical management to manage her chronic pain generators. Patient denies alcohol or illicit drug use. Consumes 2-3 cups of coffee daily. She continues to take edible marijuana grown at home and smokes 1 PPD for past 60 years. Patient is interested in lung cancer screening and will be referred to our Pulmonary services. Patient reports good social support, has 8 siblings and states her depression has been well controlled on trazadone and lorazepam prn. She has also tried Celexa, Paxil, Wellbutrin and amitriptyline in the past. Patient used to follow [facility] in 2001 for depression. She denies following Mental support at this time and states she has close contact with her family who have been very supportive to her. Patient reports uncontrolled daily and constant significant pain has negatively affected her depressive states. Denies any suicidal ideation or hallucinations. Location: Lower back radiates to buttocks, hips, legs; neck, bilateral shoulders Duration: Chronic pain for many years, worsening since 2020 Characteristics of symptom or complaint: Pulsing, throbbing, pinching, aching, wrenching, stabbing,sharp, burning Aggravating or associated factors: Any movement, walking, standing, sitting, Relieving factors: Previously-Oxycodone, Tramadol; now-cannabis edible Treatment: PT for neck and shoulder, massage therapy [facility] Medical History Pancreatic cancer Basal cell carcinoma Hypertension Opiate analgesic contract exists Benzodiazepine dependence Chronic pain syndrome Degenerative disc disease, cervical Cervical disc herniation Nicotine dependence, cigarettes, uncomplicated Depression H/O pelvic mass Surgical History History of basal cell carcinoma excision History of pelvic surgery History of hysterectomy Family History Maternal Grandfather Lung cancer, Onset Age: 67 Social History Housing: House Alcohol intake: current Alcohol intake frequency: holidays/special occasions only Patient Tobacco Use Status: Former Tobacco user Tobacco use type: Cigarette Years Smoked: (onset 8yo, 1ppd x 60yrs, 50pyh) e-Cigarette/Vaping Use: Never Used Second Hand Smoke Exposure: Yes service: No Current occupational status: retired Cognitive needs: No Hearing needs: No Vision needs: Yes (Glasses) Review of Systems Const All systems reviewed & are unremarkable except as noted in HPI and below Physical Exam Vital Signs: Last Vital Signs Pulse 91 09/23/25 08:34 Resp 16 09/23/25 08:34 BP 161/77 H 09/23/25 08:34 Pulse Ox 97 09/23/25 08:34 Oxygen Delivery Method Room Air 09/23/25 08:34 BMI result Body Mass Index 18.0 General: Appears afebrile. Alert and oriented. Mood and affect appropriate. Follows and participates in conversation appropriately. Respiratory effort is unlabored. No cough. Able to transition from sit to stand unassisted. Ambulates with bilaterally normal heel strike and toe off. Resp Effort & Inspection: normal respiratory effort, able to speak in complete sentences, no cough, respiratory effort not decreased, no respiratory distress and symmetric chest movement Skin Lesions: lesion noted (basal cell carcinoma) right nose nontender Psych Appearance: grossly normal and well kempt Mental Status: mental status grossly normal Speech and movement: Normal speech and movement present and Clear speech present Affect: normal affect Attitude: cooperative Thought process: Normal thought process present Thought content: Normal thought content present, suicidality (none), no hallucinations and No Depressive thoughts present Insight: Good insight present (Psych) Judgement: Good judgement present (Psych) Results Reviewed Results Reviewed: MR CERVICAL SPINE WITHOUT CONTRAST 08/06/2022 CLINICAL INFORMATION: 66-year-old with self-reported neck and bilateral shoulder pain and headaches. Cervical disc displacement. COMPARISON: 11/14/2012 MRI TECHNIQUE: MRI of the cervical spine was obtained using routine sequences without contrast. FINDINGS: Alignment: There is 2 mm of anterolisthesis at C3-C4 since the previous exam. There is 2 mm of retrolisthesis at C4-C5, stable in appearance. Otherwise normal alignment unchanged in appearance. Craniocervical Junction/C1-C2 Articulations: Intact and aligned. Visualized Intracranial Structures: Within normal limits. Vertebral Bodies: Normal height. Disc Spaces and Endplates: Severe disc space height loss at C4-C5 with Schmorl's nodes, disc desiccation and spondylosis similar to the previous exam. Mild disc space height loss at C3-C4, stable in appearance. Gkckpyxv-hi-xagmjx disc space height loss at C5-C6 and C6-C7 with disc desiccation, tiny Schmorl's nodes and mild degrees of spondylosis, stable in appearance. Bone Marrow: Minor type I degenerative marrow signal changes seen along the endplates at C4-C5, C5-C6 and C6-C7 with associated type II degenerative marrow signal changes. Type II marrow signal change seen most prominently at C4-C5, stable in appearance. No suspicious marrow replacing process or other bone marrow edema. C2-C3: Mild posterior disc osteophyte complex asymmetric to the right, stable in appearance with slight flattening of the dural sac on the right, unchanged, without cord impingement or canal stenosis. There is uncovertebral and facet arthrosis bilaterally, with progression of facet arthrosis on the left. There is moderate right and mild left-sided neural foraminal stenosis, progressed on the left and stable on the right. C3-C4: Broad-based central disc protrusion similar to previous study with mild flattening of the central dural sac with trace anterolisthesis at this level on the current exam without cord impingement or canal stenosis. There is uncovertebral spurring, left more than right, with mild right and severe left-sided facet arthrosis, progressed on the left. There is reqbvbsr-tt-lumnyx left-sided and mild right-sided neural foraminal stenosis, largely unchanged. C4-C5: Mild retrolisthesis, with broad-based posterior disc osteophyte complex and a superimposed central disc herniation similar to the previous exam, with wlxn-fb-txotuoex ventral cord impingement centrally with AP cord caliber of 5 mm, stable in appearance. There is associated moderate central spinal canal stenosis, stable in appearance. There is uncovertebral spurring and facet arthrosis bilaterally similar to the previous exam, with wkbsuisp-or-xhfiuz left-sided and crrn-ek-nmduhzte right-sided neural foraminal stenosis, stable in appearance. C5-C6: Broad-based disc osteophyte complex noted asymmetric to the right, similar to the previous exam, with effacement of the dural sac on the right without cord compression, stable in appearance. Mild central canal stenosis is stable. Bilateral uncovertebral spurring and facet arthropathy is similar to the previous exam with ggsvpkvt-fg-okvijn bilateral neural foraminal stenosis, stable in appearance. There is probable encroachment on the ventral root of C6 on the right, unchanged. C6-C7: Broad-based disc osteophyte complex with mild flattening of the ventral dural sac, stable in appearance, without cord impingement or canal stenosis. Bilateral uncovertebral spurring is again noted with mild right and moderate left-sided neural foraminal stenosis, stable in appearance. C7-T1: Small central to right paramedian disc osteophyte complex, stable in appearance, without significant facet arthrosis, canal or neuroforaminal stenosis. T1-T2: No disc herniation or canal stenosis. No significant DJD or neuroforaminal stenosis. Small perineural cysts noted bilaterally, stable in appearance. Spinal Cord: The cervical and visualized upper thoracic spinal cord is normal in signal intensity throughout, without focal lesion, edema or syrinx. Probable chronic spinal cord volume loss at C4-C5, unchanged. Extracranial Soft Tissues: 1.8 cm left thyroid lobe nodule is noted. Recommend follow-up thyroid ultrasound otherwise the visualized extraspinal soft tissues are grossly unremarkable in appearance. IMPRESSION: 1. Mild anterolisthesis at C3-C4 since the previous exam and mild retrolisthesis at C4-C5 stable in appearance. 2. Multilevel DDD and spondylosis largely stable in appearance with multilevel disc osteophyte complexes and disc herniations as described above largely similar in appearance to the previous exam with moderate central spinal canal stenosis at C4-C5 and mild central canal stenosis at C5-C6 stable in appearance. Qlpy-xo-ssztkibo ventral cord impingement at C4-C5 is stable with probable chronic spinal cord volume loss at this level unchanged. 3. Multilevel DJD as described above with progression of facet arthrosis on the left at C3-C4. Multilevel bilateral neural foraminal stenosis is largely stable in appearance as detailed by level above. 4. 1.8 cm left thyroid lobe nodule. Recommend follow-up thyroid ultrasound. Assessment & Plan Assessment & Plan (1) Opiate analgesic contract exists: Code(s): Z79.891 - keno terminal operator (current) use of opiate analgesic Category: Medical (2) Lumbosacral spondylosis: Code(s): M47.817 - Spondylosis without myelopathy or radiculopathy, lumbosacral region Category: Medical (3) Chronic pain syndrome: Code(s): G89.4 - Chronic pain syndrome Category: Medical (4) Degenerative disc disease, cervical: Code(s): M50.30 - Other cervical disc degeneration, unspecified cervical region Category: Medical (5) Fibromyalgia: Code(s): M79.7 - Fibromyalgia Category: Medical (6) Cervical spondylosis: Code(s): M47.812 - Spondylosis without myelopathy or radiculopathy, cervical region Category: Medical Plan Patient has shown accountability for her medication regimen and the pill count was accurate. There is no evidence of misuse, abuse or diversion at this time. MassPat reviewed. Patient consumes cannabis edibles that she personally produces for therapeutic use, for pain and sleep. Script sent for oxycodone 5 mg QID prn for moderate-severe pain with advanced date of 10/18/25. Patient has Narcan at home. Patient has pending home sleep study to address the chronic fatigue and suspected sleep apnea. All questions and concerns have been answered and patient agreed with the plan. Follow up in 4-5 weeks and sooner as needed. Medications: Refilled oxycodone Partial Fill upon patient request. 5 mg PO QID PRN 120 tabs 0RF pain 30 days G89.4 - Chronic pain syndrome, M47.817 - Spondylosis without myelopathy or radiculopathy, lumbosacral region, M50.30 - Other cervical disc degeneration, unspecified cervical region, Z79.891 - keno terminal operator (current) use of opiate analgesic Coding Level of Care Code Est Pt Level 4 (30248) Complex visit Add On G2211 Diagnoses Opiate analgesic contract exists Z79.891 Lumbosacral spondylosis M47.817 Chronic pain syndrome G89.4 Degenerative disc disease, cervical M50.30 Fibromyalgia M79.7 Cervical spondylosis M47.812
--- OUTSIDE RECORDS SUMMARY | 2025-09-23 08:54 | XMS_ITS | Clinical Summary ---
Author Organization [facility] it Address [address] [place] [address] Care Team Providers Care Professor Of Religion Name Role Phone Unavailable Primary Care Provider [...] 2) 2005 Depression Screening 10/24/2024 COVID-19 Vaccine ( - 2024-2 6 season) 2025 Influenza Vaccine (#1) 2025 RSV [...]
--- OUTSIDE RECORDS SUMMARY | 2025-09-23 08:54 | XMS_ITS | Clinical Summary ---
Author Organization [facility] Address [address] [place] [address] Phone Care Team Providers Care Hub Lead Name Role Phone Lucas Felton MD Primary Care Provid er Rafal Gamboa MD Unavailable [phone] Allergies Active Allergy Reactions Criticality Noted Date Comments Nwceped-Uso-Jqh Reductase Inhibitors 05/15/2021 Elevated liver enzymes per [...] ENHANCE SUPPLEMENT MEDICARE PART A & B [facility] MEDICARE ENHANCE SUPPLEMENT MEDICARE PART A & B [facility] MEDICARE ENHANCE SUPPLEMENT [facility] Address: [facility] [id number] [address] MEDICARE PART A & [place] [address] MEDICARE ENHANCE SUPPLEMENT [facility] Address: [facility] [id number] [address] MEDICARE PART A & B [facility] MEDICARE ENHANCE SUPPLEMENT MEDICARE PART A & B [facility] MEDICARE ENHANCE SUPPLEMENT Care Teams Hub Lead Relationship Specialty Start Date End Date Lucas Felton MD [address] [place] [address] PCP - General Internal Medicine 05/02/23 Rafal Gamboa MD [address] [place] [address] [place] [address] [email or web address] General Surgery 05/10/23 Additional Source Comments The information contained in this document represents components of the legal health record. It is not the complete legal health record.[facility]
--- OUTSIDE RECORDS SUMMARY | 2025-09-23 08:54 | XMS_ITS | Clinical Summary ---
Author Organization [facility] Address [address] [place] [address] Care Team Providers Care Radiographer Technologist Name Role Phone Unavailable Primary Care Provider [...] this topic Medical Devices Explanted Type Area Wagon Winder Device Identifier Shelf Expiration Date Model / Serial / Lot Cath Polyuret Open Tp [id number] [employer] [id number] - [id number] Explanted:Qty: 1 on 06/01/2021 by Chong Alberto DO [facility] Left: Ureter CR [employer] 01/20/2024 [id number] / / [id number] Description:Stents confirmed intact by Dr. Alberto Cath Polyuret Open Tp [id number] [employer] [id number] - [id number] Explanted:Qty: 1 on 06/01/2021 by Chong Alberto DO at [facility] Right: Ureter CR [employer] 01/20/2024 [id number] / / [id number] Description:Stents confirmed intact by Dr. Alberto Advance Directives For more information, please contact: [phone] Latest Code Status on File Code Status Date Activated Date Inactivated Comments Full Code 06/01/2021 10:51 AM 06/04/2021 10:45 PM This code status was ascertained in the following way: discussion with patient .
--- OUTSIDE RECORDS SUMMARY | 2025-09-23 08:54 | XMS_ITS | Encounter Summary ---
Author Organization [facility] Address [address] [place] [address] [place] [address] Phone Care Team Providers Care Glass Belt Sander Name Role Phone Lucas Felton MD Primary Care Provid er Rafal Gamboa MD Unavailable [phone] Encounter Details Date Type Department Care Team (Late st Contact Info) Description 05/27/2023 Procedure Pass [facility] MR Imaging, [place] [address] [place] [address] Social History Tobacco Use Types Packs/Day Years [...] on filedocumented in this encounter Care Teams Glass Belt Sander Relationship Specialty Start Date End Date Lucas Felton MD [address] [place] [id number] PCP - General Internal Medicine 05/02/23 Rafal Gamboa MD [address] [place] [address] [place] [address] [email or web address] General Surgery 05/10/23 documented as of this encounter Additional Source Comments The information contained in this document represents components of the legal health record. It is not the complete legal health record.[facility]
== END 2025-09-23 09:04 | disposition home or self-care (01) ==
LOC: HO.PMC 08:33
PROVIDERS: PCP Internal Medicine; Visit Provider Nurse Practitioner Family
DX: Z79.891 Long term (current) use of opiate analgesic (principal); M47.817 Spondylosis without myelopathy or radiculopathy, lumbosacral region; G89.4 Chronic pain syndrome; M50.30 Other cervical disc degeneration, unspecified cervical region; M79.7 Fibromyalgia; M47.812 Spondylosis without myelopathy or radiculopathy, cervical region
CPT/HCPCS: 99214; G2211

== ENCOUNTER → 2025-09-23 08:32 | Outpatient (BNVA) | payer MEDICARE, OTHER, SELFPAY | PROVIDERS: PCP Internal Medicine; Visit Provider Nurse Practitioner Family | DX: Z51.81 Encounter for therapeutic drug level monitoring (principal); Z79.891 Long term (current) use of opiate analgesic; M47.817 Spondylosis without myelopathy or radiculopathy, lumbosacral region; G89.4 Chronic pain syndrome; M50.30 Other cervical disc degeneration, unspecified cervical region; M79.7 Fibromyalgia; M47.812 Spondylosis without myelopathy or radiculopathy, cervical region | CPT/HCPCS: 99212 ==

== ENCOUNTER 2025-10-01 07:22 | Outpatient (REF) | payer MEDICARE, OTHER, SELFPAY ==
--- OUTSIDE RECORDS SUMMARY | 2025-10-01 07:26 | XMS_ITS | Encounter Summary ---
Author Organization [facility] Address [address] [place] [address] [place] [address] Phone Care Team Providers Care Paper Cutter Operator Name Role Phone Lucas Felton MD Primary Care Provid er Rafal Gamboa MD Unavailable [phone] Encounter Details Date Type Department Care Team (Late st Contact Info) Description 05/27/2023 Procedure Pass [facility] MR Imaging, [place] [address] [place] [address] Social History Tobacco Use Types Packs/Day Years [...] on filedocumented in this encounter Care Teams Paper Cutter Operator Relationship Specialty Start Date End Date Lucas Felton MD [address] [place] [address] PCP - General Internal Medicine 05/02/23 Rafal Gamboa MD [address] [place] [address] [place] [address] [email or web address] General Surgery 05/10/23 documented as of this encounter Additional Source Comments The information contained in this document represents components of the legal health record. It is not the complete legal health record.[facility]
--- OUTSIDE RECORDS SUMMARY | 2025-10-01 07:26 | XMS_ITS | Clinical Summary ---
Author Organization [facility] Address [address] [place] [address] Phone Care Team Providers Care Return Agent Airport Name Role Phone Lucas Felton MD Primary Care Provid er Rafal Gamboa MD Unavailable [phone] Allergies Active Allergy Reactions Criticality Noted Date Comments Siblsng-Syc-Hpg Reductase Inhibitors 05/15/2021 Elevated liver enzymes per [...] ENHANCE SUPPLEMENT MEDICARE PART A & B [facility] MEDICARE ENHANCE SUPPLEMENT MEDICARE PART A & B [facility] MEDICARE ENHANCE SUPPLEMENT [facility] Address: [facility] [id number] [id number] MEDICARE PART A & [place] [address] [address] MEDICARE ENHANCE SUPPLEMENT [facility] Address: [facility] [id number] [address] MEDICARE PART A & B [facility] MEDICARE ENHANCE SUPPLEMENT MEDICARE PART A & B [facility] MEDICARE ENHANCE SUPPLEMENT Care Teams Return Agent Airport Relationship Specialty Start Date End Date Lucas Felton MD [address] [place] [address] PCP - General Internal Medicine 05/02/23 Rafal Gamboa MD [address] [place] [address] [place] [address] [email or web address] General Surgery 05/10/23 Additional Source Comments The information contained in this document represents components of the legal health record. It is not the complete legal health record.[facility]
--- OUTSIDE RECORDS SUMMARY | 2025-10-01 07:26 | XMS_ITS | Clinical Summary ---
Author Organization [facility] Prior to 03/23/[address] [place] [address] Care Team Providers Care Assembler Truck Trailer Name Role Phone Unavailable Primary Care Provider [...] within 12 hours or as directed by MD 30 patch 0 06/04/2021 Active simethicone (MYLICON) [...] this topic Medical Devices Explanted Type Area Customer Service Assistant Device Identifier Shelf Expiration Date Model / Serial / Lot Cath Polyuret Open Tp [id number] [employer] [id number] - [id number] Explanted:Qty: 1 on 06/01/2021 by Chong Alberto DO at [facility] Left: Ureter [employer] 01/20/2024 [id number] / / [id number] Description:Stents confirmed intact by Dr. Alberto Cath Polyuret Open Tp [id number] [employer] [id number] - [id number] Explanted:Qty: 1 on 06/01/2021 by Chong Alberto DO at [facility] and Med Right: Ureter [employer] 01/20/2024 [id number] / / [id number] Description:Stents confirmed intact by Dr. Alberto Advance Directives For more information, please contact: [phone] Latest Code Status on File Code Status Date Activated Date Inactivated Comments Full Code 06/01/2021 10:51 AM 06/04/2021 10:45 PM This code status was ascertained in the following way: discussion with patient .
--- OUTSIDE RECORDS SUMMARY | 2025-10-01 07:26 | XMS_ITS | Clinical Summary ---
Author Organization [facility] it Address [address] [place] [address] Care Team Providers Care Wax Pumper Name Role Phone Unavailable Primary Care Provider [...] on file Sexual Orientation Not on file Plan of Treatment Health Maintenance Due Date Last Done Comments Breast Cancer Screening 1955 DTaP,Tdap,and Td Vaccines (1 - Tdap) 1974 Pneumococcal Vaccine: 50+ Ye ars (1 of 1 - PCV) 2005 Zoster Vaccines (1 of 2) 2005 Depression Screening 10/24/2024 COVID-19 Vaccine (2024-2 6 season) 2025 Influenza Vaccine (#1) 2025 [...]
[2025-10-01 08:00] LABS: Hematocrit 49.0 % (37.0-47.0); Hemoglobin 15.9 g/dl (12.0-16.0); Mean Corpuscular HGB Conc 32.4 g/dl (31.0-35.0); Mean Corpuscular Hemoglobin 33.3 pg (27.0-33.0); Mean Corpuscular Volume 102.7 fL (80.0-98.0); NRBC Abs Auto 0.000 X10*3/uL (0.0-0.012); NRBC Pct Auto 0.0 /100WBC (0.0-0.2); Platelet Count 280 X10*3/uL (160-400); Red Blood Count 4.77 X10*6/uL (4.20-5.50); White Blood Count 7.3 X10*3/uL (4.8-10.8)
[2025-10-01 08:39] LABS: Alanine Aminotransferase 25 U/L (0-31); Albumin Level 4.5 g/dL (3.5-5.0); Alkaline Phosphatase 70 U/L (39-117); Anion Gap 13 (12-20); Aspartate Amino Transferase 17 U/L (5-31); Blood Urea Nitrogen 13 mg/dL (9-16); Calcium 9.5 mg/dL (8.4-10.2); Carbon Dioxide 28 mmol/L (22-29); Chloride 107 mmol/L (96-108); Estimated Glomerular Filt Rate > 60; Iron 194 mcg/dL (30-160); Percent Iron Saturation 59 % (15-50); Potassium 4.9 mmol/L (3.3-5.1); Sodium 143 mmol/L (135-145); Total Iron Binding Capacity 329 mcg/dL (228-428); Total Protein 6.8 g/dL (6.5-8.0); Unsaturated Iron Binding 135 ug/dL
[2025-10-01 08:55] LABS: Ferritin 67 ng/mL (10-250)
[2025-10-01 09:08] LABS: Folate 13.1 ng/mL (> or = 4.0); Vitamin B12 1125 pg/mL (200-900)
== END 2025-10-01 07:23 | disposition home or self-care (01) ==
LOC: HO.LAB 07:22
PROVIDERS: PCP Internal Medicine; Visit Provider Physician Assistant Medical
DX: G47.19 Other hypersomnia (principal); R53.83 Other fatigue; G47.9 Sleep disorder, unspecified; Z13.21 Encounter for screening for nutritional disorder
CPT/HCPCS: 36415; 80053; 82306; 82607; 82728; 82746; 83090; 83540; 83921; 84443; 85027